=== PATIENT | male | born 1970 | race Caucasian/White ===

== ENCOUNTER 2022-02-10 12:22 | Inpatient (IN) ==
[2022-02-10 12:35] VITALS: BMI 20.9
[2022-02-10] MEDS ORDERED: NS 1,000 ML IV 1,000 ML ONE ×2 (12:37→14:56)
[2022-02-10] MEDS ORDERED: ZOFRAN INJ 4 MG VIAL IVP ONE (12:39)
[2022-02-10] MEDS ORDERED: NS 1,000 ML IV 1,000 ML IV ONE ×2 (12:39→13:55)
[2022-02-10] MEDS ORDERED: DILAUDID INJ IVP ONE ×2 (12:39→14:47)
[2022-02-10] MEDS ORDERED: PROTONIX INJ 40 MG VIAL IVP ONE (12:39)
--- NOTE | 2022-02-10 12:46 | DR.ABDMALE ---
HPI Time seen Time Seen by Provider: 02/10/22 12:39 Complaint Chief Complaint Doctors Comments: 51 y/o male presents for evaluation. Due for cholecystectomy in the near future, started with a gallbladder attack. Having pain of the upper abdomen, fairly constant, sharp, does not radiate. Pain wirse with eating, nothing makes it better. + associated with frequent vomiting, with decreased PO intake. Feeling lightheaded today, thinks he is going to pass out. Still urinating, no fever/chills. No URI symptoms. COVID-19 Coronavirus risk:travel/contact w/high risk person: No Reviewed Nurses Notes Review: Yes PMH PMH Past Medical History Comment: anxiety, depression, bipolar Past Surgical History: Yes Past Surgical History Comment: ortho surgeries Family History History of Family Medical Conditions: No Social History Does patient currently use any type of tobacco product: Yes Type of Tobacco Use: Cigarettes Alcohol Use: Heavy Do you use any recreational Drugs:: No Travel Risk Coronavirus risk:travel/contact w/high risk person: No Infectious screening Isolation: Standard ROS Review of Systems Constitutional: Malaise and Weakness Eyes: No Symptoms Reported ENTM: No Symptoms Reported Respiratoy: No Symptoms Reported Cardiovascular: No Symptoms Reported Gastrointestinal/Abdominal: Abdominal Pain, Nausea and Vomiting Genitourinary: No Symptoms Reported Neurological: Weakness and Dizziness Musculoskeletal: No Symptoms Reported Integumentary: No Symptoms Reported Hematologic/Lymphatic: No Symptoms Reported Psychiatric: No Symptoms Reported All Other Systems: Reviewed and Negative PE Vital Signs Vital Signs: Temp Pulse Resp BP Pulse Ox 02/10/22 15:08 20 02/10/22 14:30 72 12 174/88 98 02/10/22 14:29 76 15 98 02/10/22 14:15 72 14 98 02/10/22 14:00 76 16 144/99 98 02/10/22 13:45 71 13 97 02/10/22 13:31 24 02/10/22 13:30 69 13 161/91 97 02/10/22 13:15 69 10 L 97 02/10/22 13:01 24 02/10/22 13:00 71 15 168/92 100 02/10/22 12:47 76 17 156/85 100 02/10/22 12:45 77 17 100 02/10/22 12:31 80 13 100 02/10/22 12:27 97.0 F L 80 28 H 162/88 100 12/31/21 08:16 90/67 General Limitations: No Limitations General Appearance: Alert, Anxious and In Distress Eyes Eye exam: Normal Appearance and PERRL ENT ENT Exam: Normal Exam and Mucous Membranes Moist Neck Neck Exam: Normal Inspection and Full ROM Chest Chest Inspection: Normal Inspection Respiratory Respiratory Exam: Normal Lung Sounds Bilat; negative Accessory Muscle Use and Respiratory Distress Respiratory Exam: Bilateral: Clear to Auscultation Cardiovascular Cardiovascular Exam: Regular Rate, Normal Rhythm and Normal Heart Sounds; negative Tachycardia Abdominal Exam Abdominal Exam: Normal Inspection, Normal Bowel Sounds, Soft and Tenderness (across RUQ, with guarding) Back Back Exam: Normal Inspection and Full ROM Extremeties Extremities Exam: Normal Inspection and Full ROM Neurologic Neurological Exam: Alert, Oriented X3 and CN II-XII Intact; negative Motor Sensory Deficit Psychiatric Psychiatric Exam: Anxious Skin Skin Exam: Warm and Dry MDM Differential Diagnosis Differential Diagnosis: Cholcystitis, Cholelethiasis, Gastritus/PUD, Gastroenteritis, Pancreatitis and Urolithiasis COURSE Treatment Treatment: 51 y/o male ill over the past 4 days with upper abdominal pain, vomiting. Due to have his GB removed in the near future. + h/o a;cohol usage. Good vital signs. W/u initiated. Given IV fluids, IV zofran/protonix/dilaudid. 1406 - labs show markedly elevated lipase, 9.5K, c/w acute pancreatitis. Also with low sodium/potassium. Liver numbers not elevated. Will repeat GB U/S to r/o acute cholecystitis, but more likely related to alcohol usage. Pt will require admissision. Will consult with surgery, Dr Bhatti, who is planning cholecystectomy next week. GB US was acceptable. Discussed with Dr Flores (covering hospitalist), will admit. Notified Dr Bhatti, will consult. ROR Labs Reviewed Laboratory Results Reviewed?: Yes Result Diagrams: 02/10/22 12:47 02/10/22 12:47 Laboratory: WBC 11.0 X10^3/uL (3.6-10.0) H 02/10/22 12:47 RBC 4.68 X10^6/uL (4.7-6.0) L 02/10/22 12:47 Hgb 17.9 g/dL (13.5-18.0) 02/10/22 12:47 Hct 49.0 % (42.0-54.0) 02/10/22 12:47 MCV 104.6 fL (80.0-100.0) H 02/10/22 12:47 MCH 38.2 pg (27.0-34.0) H 02/10/22 12:47 MCHC 36.5 g/dL (33.0-35.0) H 02/10/22 12:47 RDW 14.6 % (11.6-16.5) 02/10/22 12:47 Plt Count 238 X10^3/uL (150.0-450.0) 02/10/22 12:47 MPV 7.2 fL (7.4-11.0) L 02/10/22 12:47 Neut % (Auto) 70.2 % (42.0-75.0) 02/10/22 12:47 Lymph % (Auto) 17.3 % (21.0-51.0) L 02/10/22 12:47 [place] % (Auto) 11.4 % (0.0-13.0) 02/10/22 12:47 Eos % (Auto) 0.6 % (0.9-2.9) L 02/10/22 12:47 Baso % (Auto) 0.5 % (0.2-1.0) 02/10/22 12:47 Neut # (Auto) 7.7 x10^3/uL (2.2-4.8) H 02/10/22 12:47 Lymph # (Auto) 1.9 X10^3/uL (1.3-2.9) 02/10/22 12:47 [place] # (Auto) 1.3 x10^3/uL (0.3-0.8) H 02/10/22 12:47 Eos # (Auto) 0.1 x10^3/uL (0.0-0.2) 02/10/22 12:47 Baso # (Auto) 0.1 X10^3/uL (0.0-0.1) 02/10/22 12:47 Absolute Nucleated RBC 0.1 /100WBC 02/10/22 12:47 Sodium 123 mmol/L (136-145) L* 02/10/22 12:47 Corrected Sodium 123 mmol/L (136-145) L 02/10/22 12:47 Potassium 2.7 mmol/L (3.5-5.1) L* 02/10/22 12:47 Chloride 83 mmol/L (98-107) L 02/10/22 12:47 Carbon Dioxide 29.0 mmol/L (21-32) 02/10/22 12:47 BUN 14 mg/dL (7-18) 02/10/22 12:47 Creatinine 0.97 mg/dL (0.70-1.30) 02/10/22 12:47 Est GFR (MDRD) Af Amer > 60 (>60) 02/10/22 12:47 Est GFR (MDRD) Non-Af > 60 (>60) 02/10/22 12:47 Glucose 114 mg/dL (65-99) H 02/10/22 12:47 Calcium 8.9 mg/dL (8.5-10.1) 02/10/22 12:47 Corrected Calcium TNP 02/10/22 12:47 Total Bilirubin 1.60 mg/dL (0.2-1.0) H 02/10/22 12:47 AST 50 Units/L (15-37) H 02/10/22 12:47 ALT 41 Units/L (12-78) 02/10/22 12:47 Alkaline Phosphatase 105 Units/L (46-116) 02/10/22 12:47 Total Protein 8.7 g/dL (6.4-8.2) H 02/10/22 12:47 Albumin 3.6 g/dL (3.4-5.0) 02/10/22 12:47 Globulin 5.1 g/dL (2.5-4.5) H 02/10/22 12:47 Albumin/Globulin Ratio 0.7 Ratio (1.1-2.1) L 02/10/22 12:47 Lipase 9554 Units/L (73-393) H 02/10/22 12:47 SARS CoV-2 RNA Rapid REJI Negative (NEGATIVE) 02/10/22 14:20 Other Results Comments: + low sodium/potassium XRAY XRAY Interpreted by: Radiologist X-ray Results: GB US without acute abnormalities EKG Rate: 80 [place]: Normal Rhythm: NSR Block: None ST: Nonsp Opioid Opioid Risk Tool Total: 0 Total Score Risk Category: Low Risk Copyright: Jose Antonio CLAYTON predicting aberrant behaviors Diagnosis Discharge Problem: Acute pancreatitis Qualifiers: Pancreatitis type: alcohol induced Acute pancreatitis complication: no infection or necrosis Qualified Code(s): K85.20 - Alcohol induced acute pancreatitis without necrosis or infection
[2022-02-10] MEDS ORDERED: PROTONIX INJ 40 MG VIAL ONE (12:52)
[2022-02-10] MEDS ORDERED: DILAUDID INJ ONE ×2 (12:52→14:56)
[2022-02-10] MEDS ORDERED: ZOFRAN INJ 4 MG VIAL ONE (12:52)
[2022-02-10 12:54] LABS: BASOPHILS # (AUTO) 0.1 X10^3/uL (0.0-0.1); BASOPHILS % (AUTO) 0.5 % (0.2-1.0); EOSINOPHILS # (AUTO) 0.1 x10^3/uL (0.0-0.2); EOSINOPHILS % (AUTO) 0.6 % (0.9-2.9); HEMOGLOBIN 17.9 g/dL (13.5-18.0); LYMPHOCYTES # (AUTO) 1.9 X10^3/uL (1.3-2.9); LYMPHOCYTES % (AUTO) 17.3 % (21.0-51.0); MEAN CORPUSCULAR HEMOGLOBIN 38.2 pg (27.0-34.0); MEAN CORPUSCULAR HGB CONC 36.5 g/dL (33.0-35.0); MEAN CORPUSCULAR VOLUME 104.6 fL (80.0-100.0); MEAN PLATELET VOLUME 7.2 fL (7.4-11.0); MONOCYTES # (AUTO) 1.3 x10^3/uL (0.3-0.8); MONOCYTES % (AUTO) 11.4 % (0.0-13.0); NEUTROPHILS # (AUTO) 7.7 x10^3/uL (2.2-4.8); NEUTROPHILS % (AUTO) 70.2 % (42.0-75.0); RED BLOOD COUNT 4.68 X10^6/uL (4.7-6.0); RED CELL DISTRIBUTION WIDTH 14.6 % (11.6-16.5)
[2022-02-10 13:07] LABS: ALANINE AMINOTRANSFERASE 41 Units/L (12-78); ALBUMIN 3.6 g/dL (3.4-5.0); ALKALINE PHOSPHATASE 105 Units/L (46-116); ASPARTATE AMINO TRANSFERASE 50 Units/L (15-37); BLOOD UREA NITROGEN 14 mg/dL (7-18); CALCIUM 8.9 mg/dL (8.5-10.1); CHLORIDE 83 mmol/L (98-107); COR NA(FOR HYPERGLY) 123 mmol/L (136-145); CREATININE 0.97 mg/dL (0.70-1.30); TOTAL PROTEIN 8.7 g/dL (6.4-8.2); eGFR NON BLACK RACES > 60 (>60)
[2022-02-10 13:25] LABS: SODIUM 123 mmol/L (136-145)
[2022-02-10 13:26] LABS: LIPASE 9554 Units/L (73-393)
--- NOTE | 2022-02-10 14:25 | US ---
HISTORYVomiting, history of pancreatitisSTUDYRight upper quadrant ultrasoundCOMPARISONUltrasound gallbladder dated 12/29/2021FINDINGSThe right lobe of the liver measures 18.9 centimeters, there is mild increased echogenicity. The gallbladder is mildly distended without significant wall thickening or gallstones. The common bile duct measures 4 millimeters. There is normal color Doppler flow with normal directed flow in the portal vein, hepatic artery and hepatic veins. The right kidney measures in length 11.5 by 4.9 x 5.9 centimeter, there is normal echogenicity without hydronephrosis. The pancreas was not visualized.IMPRESSIONNonvisualization of the pancreas.No evidence of cholelithiasis or cholecystitis, no intra or extrahepatic biliary dilatationHeterogeneous increased echogenicity of the liver unchanged since prior study, consider fatty liver versus medical liver diseaseElectronically signed by: Joan Mosher (Feb 10, 2022 14:24:06)
[2022-02-10] MEDS ORDERED: K-RIDER 10 MEQ/NS 100 ML 10 MEQ/100 ML BAG IV ONE ×2 (14:47→14:57)
[2022-02-10] MEDS: NICOTINE PATCH TD SCH (14:53)
[2022-02-10] MEDS ORDERED: ZOFRAN INJ 4 MG VIAL IVP PRN (17:12)
[2022-02-10] MEDS ORDERED: D5 1/2 NS 1,000 ML 1,000 ML with POTASSIUM CHLORIDE INJ 40 MEQ VIAL 40 MEQ IV SCH ×2 (17:12)
[2022-02-10] MEDS: DILAUDID INJ IVP PRN ×2 (17:44→21:48)
[2022-02-10] MEDS ORDERED: K-DUR TAB 20 MEQ PO PRN (17:47)
[2022-02-10] MEDS ORDERED: POTASSIUM CHL 40 MEQ/NS 0.45% 500 ML IV PRN (17:47)
[2022-02-10] MEDS ORDERED: POTASSIUM CHL 60 MEQ/NS 0.45% 500 ML IV PRN (17:47)
[2022-02-10] MEDS ORDERED: KLOR-CON PO PRN (17:47)
[2022-02-10] MEDS ORDERED: MICRO K EXTEN CAP 10 MEQ PO PRN (17:47)
[2022-02-10] MEDS ORDERED: POTASSIUM CHLORIDE LIQ 20 MEQ UDC PO PRN (17:47)
[2022-02-10] MEDS: D5 1/2 NS 1,000 ML 1,000 ML IV SCH (18:15)
[2022-02-10] MEDS ORDERED: PROVENTIL NEB TX 0.083% 2.5MG/ 3ML NEB SCH (21:00)
[2022-02-10] MEDS ORDERED: ACCUNEB 1.25 MG NEBULE IN SCH (21:00)
[2022-02-10] MEDS ORDERED: PULMICORT NEB TX 0.5 MG NEB SCH (21:00)
[2022-02-10] MEDS ORDERED: PATIENT'S HOME MEDICATION (Fluticasone Propion-Salmeterol 250-50 mcg/dose Blister With Dev IN SCH (21:00)
[2022-02-10] MEDS: MAGNESIUM SULFATE 1 GRAM/100 mL PREMIX 1 G/100 ML BAG IV PRN ×2 (21:46→23:40)
[2022-02-10] MEDS ORDERED: VENTOLIN or PROAIR HFA IN SCH (22:00)
[2022-02-11] MEDS: K-RIDER 10 MEQ/NS 100 ML 10 MEQ/100 ML BAG IV PRN ×4 (00:52→11:09)
[2022-02-11] MEDS: D5 1/2 NS 1,000 ML 1,000 ML IV SCH ×2 (02:10→02:11)
[2022-02-11] MEDS: DILAUDID INJ IVP PRN ×6 (02:10→23:30)
--- NOTE | 2022-02-11 02:59 | RAD ---
HISTORYPT C/O ABD PAIN PSH: ORTHOSTUDYKUBCOMPARISONNoneFIN DINGSEvaluation of the abdomen demonstrates a normal bowel gas pattern. There is a moderate amount of fecal material throughout the colon. No pathological soft tissue mass or calcification can be observed. The bony structures are grossly intact.IMPRESSIONNo evidence for acute abdominal pathology identified.Electronically signed by: Jose Payne (Feb 11, 2022 02:58:02)
[2022-02-11 03:07] LABS: BILIRUBIN,URINE NEGATIVE (NEGATIVE); BLOOD/HEMOGLOBIN,URINE 3+ (NEGATIVE); GLUCOSE, URINE NEGATIVE (NEGATIVE); KETONES,URINE NEGATIVE (NEGATIVE); LEUKOCYTE ESTERASE ,URINE NEGATIVE (NEGATIVE); NITRITES,URINE NEGATIVE (NEGATIVE); PH,URINE 6.5 (5.0 - 8.0); PROTEIN,URINE 1+ (NEGATIVE); UROBILINOGEN,URINE 2+ (NORMAL)
[2022-02-11 03:11] LABS: APPEARANCE,URINE CLEAR (CLEAR); BACTERIA,URINE NEGATIVE /HPF (NEGATIVE); COLOR,URINE AMBER (YELLOW); RBC,URINE 0-2 /HPF (0-3); SQUAMOUS EPITHELIAL CELL,UR RARE /HPF (NEGATIVE)
[2022-02-11 07:06] LABS: BASOPHILS # (AUTO) 0.2 X10^3/uL (0.0-0.1); BASOPHILS % (AUTO) 1.5 % (0.2-1.0); EOSINOPHILS # (AUTO) 0.1 x10^3/uL (0.0-0.2); EOSINOPHILS % (AUTO) 0.7 % (0.9-2.9); HEMATOCRIT 43.6 % (42.0-54.0); HEMOGLOBIN 15.7 g/dL (13.5-18.0); LYMPHOCYTES # (AUTO) 1.3 X10^3/uL (1.3-2.9); LYMPHOCYTES % (AUTO) 12.1 % (21.0-51.0); MEAN CORPUSCULAR HEMOGLOBIN 38.6 pg (27.0-34.0); MEAN CORPUSCULAR HGB CONC 36.1 g/dL (33.0-35.0); MEAN CORPUSCULAR VOLUME 106.9 fL (80.0-100.0); MEAN PLATELET VOLUME 7.5 fL (7.4-11.0); MONOCYTES # (AUTO) 1.1 x10^3/uL (0.3-0.8); MONOCYTES % (AUTO) 10.4 % (0.0-13.0); NEUTROPHILS # (AUTO) 7.9 x10^3/uL (2.2-4.8); NEUTROPHILS % (AUTO) 75.3 % (42.0-75.0); RED BLOOD COUNT 4.08 X10^6/uL (4.7-6.0); RED CELL DISTRIBUTION WIDTH 14.2 % (11.6-16.5); WHITE BLOOD COUNT 10.4 X10^3/uL (3.6-10.0)
[2022-02-11 07:08] LABS: ALANINE AMINOTRANSFERASE 40 Units/L (12-78); ALBUMIN 2.9 g/dL (3.4-5.0); ALKALINE PHOSPHATASE 84 Units/L (46-116); ASPARTATE AMINO TRANSFERASE 45 Units/L (15-37); BLOOD UREA NITROGEN 10 mg/dL (7-18); CARBON DIOXIDE 32.8 mmol/L (21-32); CHLORIDE 87 mmol/L (98-107); COR CA(FOR HYPOALB) 8.9 mg/dL (8.5-10.1); CREATININE 0.85 mg/dL (0.70-1.30); TOTAL PROTEIN 7.1 g/dL (6.4-8.2); eGFR NON BLACK RACES > 60 (>60)
[2022-02-11 07:33] LABS: COR NA(FOR HYPERGLY) 126 mmol/L (136-145); LIPASE 4747 Units/L (73-393); PLATELET MORPHOLOGY COMMENT NORMAL (NORMAL); SODIUM 125 mmol/L (136-145)
[2022-02-11] MEDS ORDERED: NICOTINE PATCH TD SCH (09:00)
[2022-02-11] MEDS ORDERED: NS 1,000 ML IV 1,000 ML IV SCH (09:00)
[2022-02-11] MEDS ORDERED: ATENOLOL CHLORTHALIDONE PO SCH (09:00)
--- NOTE | 2022-02-11 09:04 | DR.H&P ---
H&P History & Physical for Day of: H&P Date: 02/11/22 Chief Complaint Chief Complaint: abdominal pain, nausea/vomiting Allergies Allergies Allergy/AdvReac Type Severity Reaction Status Date / Time No Known Drug Allergies Allergy Verified 05/09/20 10:10 History of Present Illness History of Present Illness: Mr Block is a 51y/o male with a PMH of HTN, recurrent pancreatitis, ETOH and tobacco use presented with worsening abdominal pain, nausea and vomiting. He states his Sx started Wednesday and have been worsening. He reports poor oral intake since then. He has been having work up for abdominal pain for a while now. He has been seeing Dr Grady, had EGD recently for similar Sx. He also had outpatient gallbladder U/S and HIDA, he is scheduled to have cholecystectomy on Wednesday due to low EF on HIDA. In the ER, he was noted to have low potassium, sodium and magnesium. His lipase was significantly elevated. U/S GB showed no stones or signs of acute cholecystitis. He was started on pain control, hydration and potassium replacement. Dr Grady was also consulted. Patient reports drinking excessive alcohol for years, smokes 1PPD. Labs/imaging reviewed Plan: continue NPO, pain control and hydration. Will changed to NS with KCl. Monitor electrolytes, replace as needed. Follow surgery recommendations. Monitor AM labs/imaging. Past Medical History Past Medical History: Anxiety, COPD, Depression and Hypertension Past Surgical History Surgical History: Ortho Surgery Social History Does patient currently use any type of tobacco product: Yes Have you used tobacco products in the last 12 months: Yes Type of Tobacco Use: Cigarettes Does any household member use tobacco: No Alcohol Use: None and Occasionally Prescription drug monitoring program results: PDMP reviewed and no concerns identified Medications Home Medications: No Known Drug Allergies Allergy (Verified 05/09/20 10:10) CONTINUE taking the following medications albuterol sulfate [ProAir HFA] 2 puff INHALATION TID 02/10/22 [History] atenolol-chlorthalidone 1 tab PO DAILY 02/10/22 [History] citalopram 20 mg PO DAILY 02/10/22 [History] diclofenac sodium 75 mg PO BID 02/10/22 [History] fluticasone propion-salmeterol [Advair Diskus] 1 inh INHALATION BID 02/10/22 [History] hydrocodone-acetaminophen 1 tab PO TID 02/10/22 [History] pantoprazole [Protonix] 40 mg PO BID 02/10/22 [History] Labs Result Diagrams: 02/11/22 05:28 02/11/22 05:28 Labs: Laboratory WBC 10.4 X10^3/uL (3.6-10.0) H 02/11/22 05:28 RBC 4.08 X10^6/uL (4.7-6.0) L 02/11/22 05:28 Hgb 15.7 g/dL (13.5-18.0) D 02/11/22 05:28 Hct 43.6 % (42.0-54.0) 02/11/22 05:28 MCV 106.9 fL (80.0-100.0) H 02/11/22 05:28 MCH 38.6 pg (27.0-34.0) H 02/11/22 05:28 MCHC 36.1 g/dL (33.0-35.0) H 02/11/22 05:28 RDW 14.2 % (11.6-16.5) 02/11/22 05:28 Plt Count 201 X10^3/uL (150.0-450.0) 02/11/22 05:28 Plt Count Comment Adequate (ADEQUATE) 02/11/22 05:28 MPV 7.5 fL (7.4-11.0) 02/11/22 05:28 Neut % (Auto) 75.3 % (42.0-75.0) H 02/11/22 05:28 Lymph % (Auto) 12.1 % (21.0-51.0) L 02/11/22 05:28 [place] % (Auto) 10.4 % (0.0-13.0) 02/11/22 05:28 Eos % (Auto) 0.7 % (0.9-2.9) L 02/11/22 05:28 Baso % (Auto) 1.5 % (0.2-1.0) H 02/11/22 05:28 Neut # (Auto) 7.9 x10^3/uL (2.2-4.8) H 02/11/22 05:28 Lymph # (Auto) 1.3 X10^3/uL (1.3-2.9) 02/11/22 05:28 [place] # (Auto) 1.1 x10^3/uL (0.3-0.8) H 02/11/22 05:28 Eos # (Auto) 0.1 x10^3/uL (0.0-0.2) 02/11/22 05:28 Baso # (Auto) 0.2 X10^3/uL (0.0-0.1) H 02/11/22 05:28 Absolute Nucleated RBC 0.1 /100WBC 02/11/22 05:28 Plt Morphology Comment Normal (NORMAL) 02/11/22 05:28 RBC Morphology Abnormal (NORMAL) 02/11/22 05:28 Macrocytosis 1+ A 02/11/22 05:28 Sodium 125 mmol/L (136-145) L* 02/11/22 05:28 Corrected Sodium 126 mmol/L (136-145) L 02/11/22 05:28 Potassium 3.3 mmol/L (3.5-5.1) L 02/11/22 05:28 Chloride 87 mmol/L (98-107) L 02/11/22 05:28 Carbon Dioxide 32.8 mmol/L (21-32) H 02/11/22 05:28 BUN 10 mg/dL (7-18) 02/11/22 05:28 Creatinine 0.85 mg/dL (0.70-1.30) 02/11/22 05:28 Est GFR (MDRD) Af Amer > 60 (>60) 02/11/22 05:28 Est GFR (MDRD) Non-Af > 60 (>60) 02/11/22 05:28 Glucose 139 mg/dL (65-99) H 02/11/22 05:28 POC Glucose (mg/dL) 119 mg/dL (65-99) H 02/10/22 17:43 Hemoglobin A1c 5.1 % 02/11/22 05:28 Calcium 8.0 mg/dL (8.5-10.1) L 02/11/22 05:28 Corrected Calcium 8.9 mg/dL (8.5-10.1) 02/11/22 05:28 Magnesium 2.5 mg/dL (1.7-2.9) 02/11/22 05:28 Total Bilirubin 1.20 mg/dL (0.2-1.0) H 02/11/22 05:28 AST 45 Units/L (15-37) H 02/11/22 05:28 ALT 40 Units/L (12-78) 02/11/22 05:28 Alkaline Phosphatase 84 Units/L (46-116) 02/11/22 05:28 Total Protein 7.1 g/dL (6.4-8.2) 02/11/22 05:28 Albumin 2.9 g/dL (3.4-5.0) L 02/11/22 05:28 Globulin 4.2 g/dL (2.5-4.5) 02/11/22 05:28 Albumin/Globulin Ratio 0.7 Ratio (1.1-2.1) L 02/11/22 05:28 Lipase 4747 Units/L (73-393) H 02/11/22 05:28 Specimen Type Clean catch urine 02/10/22 02:28 Urine Color [place] (YELLOW) 02/10/22 02:28 Urine Appearance Clear (CLEAR) 02/10/22 02:28 Urine pH 6.5 (5.0 - 8.0) 02/10/22 02:28 Ur Specific [place] 1.015 (1.000-1.030) 02/10/22 02:28 Urine Protein 1+ (NEGATIVE) 02/10/22 02:28 Urine Glucose (UA) Negative (NEGATIVE) 02/10/22 02:28 Urine Ketones Negative (NEGATIVE) 02/10/22 02:28 Urine Occult Blood 3+ (NEGATIVE) 02/10/22 02:28 Urine Nitrite Negative (NEGATIVE) 02/10/22 02:28 Urine Bilirubin Negative (NEGATIVE) 02/10/22 02:28 Urine Urobilinogen 2+ (NORMAL) 02/10/22 02:28 Ur Leukocyte Esterase Negative (NEGATIVE) 02/10/22 02:28 Urine RBC 0-2 /HPF (0-3) 02/10/22 02:28 Urine WBC None seen /HPF (0-5) 02/10/22 02:28 Ur Squamous Epith Cells Rare /HPF (NEGATIVE) 02/10/22 02:28 Urine Bacteria Negative /HPF (NEGATIVE) 02/10/22 02:28 Ur Culture Indicated? No/not indicated 02/10/22 02:28 SARS CoV-2 RNA Rapid REJI Negative (NEGATIVE) 02/10/22 14:20 Review of Systems Constitutional: No Symptoms Reported Eyes: No Symptoms Reported ENT: No Symptoms Reported Respiratory: No Symptoms Reported Cardiovascular: No Symptoms Reported Gastrointestinal: Nausea, Vomiting, Abdominal Pain and Diarrhea Genitourinary: No Symptoms Reported Musculoskeletal: No Symptoms Reported Skin: No Symptoms Reported Neurological: No Symptoms Reported Physical Exam Vital Signs: Temperature 98.0 F Pulse Rate [Bilateral Radial] 75 Pulse Rate 72 Respiratory Rate 20 Blood Pressure [Left Arm] 158/83 Blood Pressure 156/88 O2 Sat by Pulse Oximetry 96 Oriented: Normal Eyes: Normal Ear: Normal Nose: Normal Throat: Dry Respiratory: Clear Throughout Cardiovascular: Normal Tenderness: RUQ, RLQ, Epigastric and Mild Skin: Normal Musculoskeletal: Normal Psychiatric: Normal Mood Description: Calm Affect: Normal Speech Pattern: Clear and Appropriate Assessment/Plan (1) Acute pancreatitis: Qualifiers: Acute pancreatitis complication: no infection or necrosis Pancreatitis type: alcohol induced Qualified Code(s): K85.20 - Alcohol induced acute pancreatitis without necrosis or infection Status: Acute (2) Hyponatremia: Status: Acute (3) Hypokalemia: Status: Acute (4) Hypomagnesemia: Status: Acute (5) Dehydration: Status: Acute (6) Abdominal pain: Qualifiers: Abdominal location: generalized Qualified Code(s): R10.84 - Generalized abdominal pain Status: Acute (7) HTN (hypertension): Qualifiers: Hypertension type: primary hypertension Qualified Code(s): I10 - Essential (primary) hypertension Status: Acute (8) Alcohol abuse: Status: Acute (9) Tobacco use: Status: Acute Review H&P Reviewed: Yes Patient was examined?: Yes
[2022-02-11] MEDS: NICOTINE PATCH TD SCH (09:27)
[2022-02-11] MEDS: CHLORTHALIDONE PO SCH (09:45)
[2022-02-11] MEDS: TENORMIN PO SCH (09:46)
[2022-02-11] MEDS: NS + KCL 20 MEQ/L 1,000 ML IV SCH ×2 (09:46→17:19)
[2022-02-12] MEDS: NS + KCL 20 MEQ/L 1,000 ML IV SCH ×2 (01:30→09:42)
[2022-02-12] MEDS: DILAUDID INJ IVP PRN ×2 (03:38→08:06)
[2022-02-12 06:40] LABS: BASOPHILS % (AUTO) 0.2 % (0.2-1.0); EOSINOPHILS # (AUTO) 0.2 x10^3/uL (0.0-0.2); EOSINOPHILS % (AUTO) 2.4 % (0.9-2.9); HEMATOCRIT 42.9 % (42.0-54.0); HEMOGLOBIN 15.2 g/dL (13.5-18.0); LYMPHOCYTES % (AUTO) 22.2 % (21.0-51.0); MEAN CORPUSCULAR HEMOGLOBIN 38.3 pg (27.0-34.0); MEAN CORPUSCULAR HGB CONC 35.3 g/dL (33.0-35.0); MEAN CORPUSCULAR VOLUME 108.4 fL (80.0-100.0); MEAN PLATELET VOLUME 7.6 fL (7.4-11.0); MONOCYTES # (AUTO) 1.1 x10^3/uL (0.3-0.8); MONOCYTES % (AUTO) 11.5 % (0.0-13.0); NEUTROPHILS # (AUTO) 5.9 x10^3/uL (2.2-4.8); NEUTROPHILS % (AUTO) 63.7 % (42.0-75.0); RED BLOOD COUNT 3.96 X10^6/uL (4.7-6.0); RED CELL DISTRIBUTION WIDTH 14.5 % (11.6-16.5); WHITE BLOOD COUNT 9.2 X10^3/uL (3.6-10.0)
[2022-02-12 07:16] LABS: ALANINE AMINOTRANSFERASE 55 Units/L (12-78); ALKALINE PHOSPHATASE 98 Units/L (46-116); ASPARTATE AMINO TRANSFERASE 57 Units/L (15-37); BLOOD UREA NITROGEN 10 mg/dL (7-18); CALCIUM 8.3 mg/dL (8.5-10.1); CARBON DIOXIDE 28.1 mmol/L (21-32); CHLORIDE 93 mmol/L (98-107); COR CA(FOR HYPOALB) 9.1 mg/dL (8.5-10.1); MAGNESIUM 2.1 mg/dL (1.7-2.9); SODIUM 130 mmol/L (136-145); TOTAL PROTEIN 7.3 g/dL (6.4-8.2); eGFR NON BLACK RACES > 60 (>60)
[2022-02-12 07:50] LABS: PLATELET MORPHOLOGY COMMENT NORMAL (NORMAL)
[2022-02-12] MEDS ORDERED: NS 100 ML IV 100 ML ONE (08:08)
[2022-02-12] MEDS: TENORMIN PO SCH (09:41)
[2022-02-12] MEDS: NICOTINE PATCH TD SCH (09:41)
[2022-02-12] MEDS: CHLORTHALIDONE PO SCH (09:42)
--- NOTE | 2022-02-12 09:44 | W.DIS.FURT ---
Summary of Discharge Discharge Summary of Date Date of Exam: 02/12/22 Admission Date Date of Admission: 02/10/22 Admission Diagnosis Patient Problems (Updated 02/12/22 @ 15:35 by Loly Flores) Acute pancreatitis (Acute) K85.90 Hospital Course: Mr Block is a 51y/o male with a PMH of HTN, recurrent pancreatitis, ETOH and tobacco use presented with worsening abdominal pain, nausea and vomiting. He states his Sx started Wednesday and have been worsening. He reports poor oral intake since then. He has been having work up for abdominal pain for a while now. He has been seeing Dr Grady, had EGD recently for similar Sx. He also had outpatient gallbladder U/S and HIDA, he is scheduled to have cholecystectomy on Wednesday due to low EF on HIDA. In the ER, he was noted to have low potassium, sodium and magnesium. His lipase was significantly elevated. U/S GB showed no stones or signs of acute cholecystitis. He was started on pain control, hydration and potassium replacement. Dr Grady was also consulted. Patient reports drinking excessive alcohol for years, smokes 1PPD. He was admitted for further treatment. He was kept NPO, started on IV fluids and pain control. His potassium and magnesium were replaced as needed. His symptoms improved and he was ambulating in the room. His diet was advanced as tolerated. His labs improved. Dr Grady discussed postponing gallbladder surgery for the next few weeks until pat ient improved from this episode. He was stable for discharge. He will f/u with PCP and Dr Grady. Discussed alcohol cessation. Vital Signs: Vital Signs (72 hours) 02/10/22 12:27 02/10/22 12:31 02/10/22 12:45 Temperature 97.0 F L Pulse Rate 80 80 77 Pulse Rate [Bilateral Radial] Respiratory Rate 28 H 13 17 Blood Pressure 162/88 Blood Pressure [Left Arm] O2 Sat by Pulse Oximetry 100 100 100 02/10/22 12:47 02/10/22 13:00 02/10/22 13:01 Temperature Pulse Rate 76 71 Pulse Rate [Bilateral Radial] Respiratory Rate 17 15 24 Blood Pressure 156/85 168/92 Blood Pressure [Left Arm] O2 Sat by Pulse Oximetry 100 100 02/10/22 13:15 02/10/22 13:30 02/10/22 13:31 Temperature Pulse Rate 69 69 Pulse Rate [Bilateral Radial] Respiratory Rate 10 L 13 24 Blood Pressure 161/91 Blood Pressure [Left Arm] O2 Sat by Pulse Oximetry 97 97 02/10/22 13:45 02/10/22 14:00 02/10/22 14:15 Temperature Pulse Rate 71 76 72 Pulse Rate [Bilateral Radial] Respiratory Rate 13 16 14 Blood Pressure 144/99 Blood Pressure [Left Arm] O2 Sat by Pulse Oximetry 97 98 98 02/10/22 14:29 02/10/22 14:30 02/10/22 14:45 Temperature Pulse Rate 76 72 70 Pulse Rate [Bilateral Radial] Respiratory Rate 15 12 11 L Blood Pressure 174/88 Blood Pressure [Left Arm] O2 Sat by Pulse Oximetry 98 98 98 02/10/22 15:00 02/10/22 15:08 02/10/22 15:15 Temperature Pulse Rate 73 69 Pulse Rate [Bilateral Radial] Respiratory Rate 14 20 13 Blood Pressure 154/88 Blood Pressure [Left Arm] O2 Sat by Pulse Oximetry 98 97 02/10/22 15:30 02/10/22 16:20 02/10/22 17:44 Temperature 97.3 F L Pulse Rate 72 Pulse Rate [Bilateral Radial] 71 Respiratory Rate 11 L 22 20 Blood Pressure 156/88 Blood Pressure [Left Arm] 182/90 O2 Sat by Pulse Oximetry 97 98 02/10/22 18:14 02/10/22 20:00 02/10/22 21:48 Temperature 98.4 F Pulse Rate Pulse Rate [Bilateral Radial] 68 Respiratory Rate 20 20 20 Blood Pressure Blood Pressure [Left Arm] 135/83 O2 Sat by Pulse Oximetry 98 02/10/22 22:18 02/11/22 00:00 02/11/22 02:10 Temperature 97.9 F Pulse Rate Pulse Rate [Bilateral Radial] 70 Respiratory Rate 20 18 20 Blood Pressure Blood Pressure [Left Arm] 165/87 O2 Sat by Pulse Oximetry 99 02/11/22 02:40 02/11/22 04:00 02/11/22 06:11 Temperature 98.0 F Pulse Rate Pulse Rate [Bilateral Radial] 75 Respiratory Rate 20 20 20 Blood Pressure Blood Pressure [Left Arm] 158/83 O2 Sat by Pulse Oximetry 96 02/11/22 06:41 02/11/22 08:00 02/11/22 10:52 Temperature 98.1 F Pulse Rate Pulse Rate [Bilateral Radial] 70 Respiratory Rate 20 20 20 Blood Pressure Blood Pressure [Left Arm] 120/79 O2 Sat by Pulse Oximetry 97 02/11/22 11:22 02/11/22 11:56 02/11/22 15:08 Temperature 98.2 F Pulse Rate Pulse Rate [Bilateral Radial] 73 Respiratory Rate 20 20 20 Blood Pressure Blood Pressure [Left Arm] 125/74 O2 Sat by Pulse Oximetry 96 02/11/22 15:38 02/11/22 16:00 02/11/22 19:25 Temperature 98.2 F Pulse Rate Pulse Rate [Bilateral Radial] 76 Respiratory Rate 20 20 20 Blood Pressure Blood Pressure [Left Arm] 114/73 O2 Sat by Pulse Oximetry 93 L 02/11/22 19:55 02/11/22 20:00 02/11/22 23:30 Temperature 98.6 F Pulse Rate Pulse Rate [Bilateral Radial] 83 Respiratory Rate 21 20 20 Blood Pressure Blood Pressure [Left Arm] 134/82 O2 Sat by Pulse Oximetry 98 02/12/22 00:00 02/12/22 03:38 02/12/22 03:59 Temperature 98.6 F 97.9 F Pulse Rate Pulse Rate [Bilateral Radial] 78 75 Respiratory Rate 20 20 20 Blood Pressure Blood Pressure [Left Arm] 112/73 100/66 O2 Sat by Pulse Oximetry 96 99 02/12/22 04:08 02/12/22 08:06 02/12/22 08:36 Temperature Pulse Rate Pulse Rate [Bilateral Radial] Respiratory Rate 21 21 21 Blood Pressure Blood Pressure [Left Arm] O2 Sat by Pulse Oximetry Labs: Laboratory Last Values WBC 9.2 X10^3/uL (3.6-10.0) 02/12/22 05:25 RBC 3.96 X10^6/uL (4.7-6.0) L 02/12/22 05:25 Hgb 15.2 g/dL (13.5-18.0) 02/12/22 05:25 Hct 42.9 % (42.0-54.0) 02/12/22 05:25 MCV 108.4 fL (80.0-100.0) H 02/12/22 05:25 MCH 38.3 pg (27.0-34.0) H 02/12/22 05:25 MCHC 35.3 g/dL (33.0-35.0) H 02/12/22 05:25 RDW 14.5 % (11.6-16.5) 02/12/22 05:25 Plt Count 201 X10^3/uL (150.0-450.0) 02/12/22 05:25 Plt Count Comment Adequate (ADEQUATE) 02/12/22 05:25 MPV 7.6 fL (7.4-11.0) 02/12/22 05:25 Neut % (Auto) 63.7 % (42.0-75.0) 02/12/22 05:25 Lymph % (Auto) 22.2 % (21.0-51.0) 02/12/22 05:25 [place] % (Auto) 11.5 % (0.0-13.0) 02/12/22 05:25 Eos % (Auto) 2.4 % (0.9-2.9) 02/12/22 05:25 Baso % (Auto) 0.2 % (0.2-1.0) 02/12/22 05:25 Neut # (Auto) 5.9 x10^3/uL (2.2-4.8) H 02/12/22 05:25 Lymph # (Auto) 2.0 X10^3/uL (1.3-2.9) 02/12/22 05:25 [place] # (Auto) 1.1 x10^3/uL (0.3-0.8) H 02/12/22 05:25 Eos # (Auto) 0.2 x10^3/uL (0.0-0.2) 02/12/22 05:25 Baso # (Auto) 0.0 X10^3/uL (0.0-0.1) 02/12/22 05:25 Absolute Nucleated RBC 0.1 /100WBC 02/12/22 05:25 Plt Morphology Comment Normal (NORMAL) 02/12/22 05:25 RBC Morphology Abnormal (NORMAL) 02/12/22 05:25 Macrocytosis 1+ A 02/12/22 05:25 Sodium 130 mmol/L (136-145) L 02/12/22 05:25 Corrected Sodium TNP 02/12/22 05:25 Potassium 3.4 mmol/L (3.5-5.1) L 02/12/22 05:25 Chloride 93 mmol/L (98-107) L 02/12/22 05:25 Carbon Dioxide 28.1 mmol/L (21-32) 02/12/22 05:25 BUN 10 mg/dL (7-18) 02/12/22 05:25 Creatinine 0.80 mg/dL (0.70-1.30) 02/12/22 05:25 Est GFR (MDRD) Af Amer > 60 (>60) 02/12/22 05:25 Est GFR (MDRD) Non-Af > 60 (>60) 02/12/22 05:25 Glucose 88 mg/dL (65-99) 02/12/22 05:25 POC Glucose (mg/dL) 119 mg/dL (65-99) H 02/10/22 17:43 Hemoglobin A1c 5.1 % 02/11/22 05:28 Calcium 8.3 mg/dL (8.5-10.1) L 02/12/22 05:25 Corrected Calcium 9.1 mg/dL (8.5-10.1) 02/12/22 05:25 Magnesium 2.1 mg/dL (1.7-2.9) 02/12/22 05:25 Total Bilirubin 1.10 mg/dL (0.2-1.0) H 02/12/22 05:25 AST 57 Units/L (15-37) H 02/12/22 05:25 ALT 55 Units/L (12-78) 02/12/22 05:25 Alkaline Phosphatase 98 Units/L (46-116) 02/12/22 05:25 Total Protein 7.3 g/dL (6.4-8.2) 02/12/22 05:25 Albumin 3.0 g/dL (3.4-5.0) L 02/12/22 05:25 Globulin 4.3 g/dL (2.5-4.5) 02/12/22 05:25 Albumin/Globulin Ratio 0.7 Ratio (1.1-2.1) L 02/12/22 05:25 Lipase 4747 Units/L (73-393) H 02/11/22 05:28 Specimen Type Clean catch urine 02/10/22 02:28 Urine Color [place] (YELLOW) 02/10/22 02:28 Urine Appearance Clear (CLEAR) 02/10/22 02:28 Urine pH 6.5 (5.0 - 8.0) 02/10/22 02:28 Ur Specific [place] 1.015 (1.000-1.030) 02/10/22 02:28 Urine Protein 1+ (NEGATIVE) 02/10/22 02:28 Urine Glucose (UA) Negative (NEGATIVE) 02/10/22 02:28 Urine Ketones Negative (NEGATIVE) 02/10/22 02:28 Urine Occult Blood 3+ (NEGATIVE) 02/10/22 02:28 Urine Nitrite Negative (NEGATIVE) 02/10/22 02:28 Urine Bilirubin Negative (NEGATIVE) 02/10/22 02:28 Urine Urobilinogen 2+ (NORMAL) 02/10/22 02:28 Ur Leukocyte Esterase Negative (NEGATIVE) 02/10/22 02:28 Urine RBC 0-2 /HPF (0-3) 02/10/22 02:28 Urine WBC None seen /HPF (0-5) 02/10/22 02:28 Ur Squamous Epith Cells Rare /HPF (NEGATIVE) 02/10/22 02:28 Urine Bacteria Negative /HPF (NEGATIVE) 02/10/22 02:28 Ur Culture Indicated? No/not indicated 02/10/22 02:28 SARS CoV-2 RNA Rapid REJI Negative (NEGATIVE) 02/10/22 14:20 Reason For Visit: HYPONATREMIA, PANCREATITIS, HYPOKALEMIA, ABD PAIN Discharge Date Discharge Date: 02/12/22 Discharge Diagnosis All Active Problems (Updated 02/12/22 @ 15:35 by Loly Flores) Tobacco use (Chronic) Alcohol abuse (Chronic) HTN (hypertension) (Chronic) Abdominal pain (Acute) Dehydration (Acute) Hypomagnesemia (Acute) Hypokalemia (Acute) Hyponatremia (Acute) Acute pancreatitis (Acute) Plan of Treatment: Continue with present treatment and follow up plan. Pt is to keep follow up appointment as instructed and take medications as ordered. Discharge Medications Discharge Medications: No Known Drug Allergies Allergy (Verified 05/09/20 10:10) CONTINUE taking the following medications albuterol sulfate [ProAir HFA] 2 puff INHALATION TID 02/10/22 [History] atenolol-chlorthalidone 1 tab PO DAILY 02/10/22 [History] citalopram 20 mg PO DAILY 02/10/22 [History] fluticasone propion-salmeterol [Advair Diskus] 1 inh INHALATION BID 02/10/22 [History] hydrocodone-acetaminophen 1 tab PO TID 02/10/22 [History] pantoprazole [Protonix] 40 mg PO BID 02/10/22 [History] New Prescriptions hydrocodone-acetaminophen 1 tab PO Q6HR 5 Days #20 tab MDD 4 tabs 02/12/22 [Rx] ondansetron HCl 4 mg PO Q8H PRN #14 tab 02/12/22 [Rx] potassium chloride 10 meq PO BID 3 Days #6 cap 02/12/22 [Rx] Follow up and Referral Follow Up: 1 Week (PCP) 1 Week (Surgery ) Discharge Disposition Discharge Disposition: Home Discharge Condition: Stable Discharge Plan Discharge Plan Hospital Course: Mr Block is a 51y/o male with a PMH of HTN, recurrent pancreatitis, ETOH and tobacco use presented with worsening abdominal pain, nausea and vomiting. He states his Sx started Wednesday and have been worsening. He reports poor oral intake since then. He has been having work up for abdominal pain for a while now. He has been seeing Dr Grady, had EGD recently for similar Sx. He also had outpatient gallbladder U/S and HIDA, he is scheduled to have cholecystectomy on Wednesday due to low EF on HIDA. In the ER, he was noted to have low potassium, sodium and magnesium. His lipase was significantly elevated. U/S GB showed no stones or signs of acute cholecystitis. He was started on pain control, hydration and potassium replacement. Dr Grady was also consulted. Patient reports drinking excessive alcohol for years, smokes 1PPD. He was admitted for further treatment. He was kept NPO, started on IV fluids and pain control. His potassium and magnesium were replaced as needed. His symptoms improved and he was ambulating in the room. His diet was advanced as tolerated. His labs improved. Dr Grady discussed postponing gallbladder surgery for the next few weeks until patient improved from this episode. He was stable for discharge. He will f/u with PCP and Dr Grady. Discussed alcohol cessation. Patient Disposition: 01 HOME, SELF-CARE Condition: Stable Health Concerns: Post Hospitalization: new medications and changes needed to prevent readmission or further decline. Pt educated and given instructions on all concerns. Care Plan Goals: Problem: Pain/Alteration in Comfort Goal: Improve/ Resolve Pain; Achieve Pain Tolerance Instructions: Take pain medications as prescribed. Contact your primary care provider if your pain is unrelieved or worsens. Follow up with primary care provider as directed. Plan of Treatment: Continue with present treatment and follow up plan. Pt is to keep follow up appointment as instructed and take medications as ordered. Prescription drug monitoring program results: PDMP reviewed and no concerns identified Prescriptions: New hydrocodone-acetaminophen 10-325 mg tablet 1 tab PO Q6HR MDD 4 tabs 5 Days Qty: 20 RF: 0 ondansetron HCl 4 mg tablet 4 mg PO Q8H PRN (Reason: nausea and vomiting) Qty: 14 RF: 0 potassium chloride 10 mEq capsule, extended release 10 meq PO BID 3 Days Qty: 6 RF: 0 Continued fluticasone propion-salmeterol [Advair Diskus] 250-50 mcg/dose Blister With Device 1 inh INHALATION BID RF: 0 atenolol-chlorthalidone 50-25 mg Tablet 1 tab PO DAILY RF: 0 citalopram 20 mg Tablet 20 mg PO DAILY RF: 0 hydrocodone-acetaminophen 7.5-325 mg Tablet 1 tab PO TID RF: 0 pantoprazole [Protonix] 40 mg Tablet,Delayed Release (Dr/Ec) 40 mg PO BID RF: 0 albuterol sulfate [ProAir HFA] 90 mcg/actuation Hfa Aerosol Inhaler 2 puff INHALATION TID RF: 0 Discontinued diclofenac sodium 75 mg Tablet,Delayed Release (Dr/Ec) 75 mg PO BID RF: 0 Follow ups/Referrals Follow ups/Referrals: ANUJ ALY [STAFF PHYSICIAN] - 02/24/22 2:45 pm (hospital f/u ) Instructions Instructions: Laparoscopic Cholecystectomy, Hypomagnesemia, Hypokalemia, Alcohol Abuse and Nutrition, Steps to Quit Smoking, Ewop-jq-Juam, Acute Pancreatitis, Nors-dd-Snyl, Pancreatitis Eating Plan, Dehydration, Adult Stand Alone Forms: Precautions for COVID19, [facility], Patient Portal, S ocial Distancing
[2022-02-12 09:51] VITALS: BP 137/64
== END 2022-02-12 10:00 | disposition home or self-care (01) | DRG 439 ==
LOC: ER 12:22 → MED/SURG 15:23
PROVIDERS: ADMIT Internal Medicine; ATTEND Internal Medicine

== ENCOUNTER 2023-09-07 13:14 | Inpatient (IN) ==
[2023-09-07 13:26] VITALS: BMI 16.9
[2023-09-07] MEDS ORDERED: NS 1,000 ML IV 1,000 ML IV ONE (13:42)
[2023-09-07] MEDS ORDERED: NS 1,000 ML IV 1,000 ML ONE (13:52)
--- NOTE | 2023-09-07 13:52 | DR.GENAD ---
HPI Time Seen Time Seen by Provider: 09/07/23 13:42 PCP Primary Care Physician: Candy Complaint/Symptoms Chief Complaint Doctors Comments: 53 y/o male sent in by his MD for evaluation. Has a history of chronic cryptitis in the past. Over the past few weeks he has been having increasing difficulty in eating. Having pain when he eats, located in the epigastric and right upper quadrant region. Frequently gets nauseous and vomits. Pain is worse with laying down as well as eating. Nothing makes it better. Patient does not drink alcohol anymore. Seen here in April for his last episode of severe pancreatitis. Patient had CTs and labs done as an outpatient yesterday thru his primary care physician. CT the abdomen pelvis shows improvement of the pancreas compared to last time, he does now have increased inflammation of his duodenal region. Liver enzymes better than last time. Lipase 888, but was 2,000 last time. Chief Complaint:: Doctor called and blood work was very low and his pancrease enzymes were very high, he had some imaging studies done here yesterday COVID-19 Coronavirus risk:travel/contact w/high risk person: No Has patient experienced Coronavirus symptoms: No Nurses notes reviewed Nurses Notes Review: Yes Source History Provided: Patient Mode of Arrival Mode of Arrival: Ambulatory Timing Onset of Chief Complaint: 09/03/23 PMH PMH Past Medical History: Yes Past Medical History: Hypertension Past Medical History Comment: pancreatitis, chronic pain Past Surgical History: Yes Surgical History: Cholecystectomy Family History History of Family Medical Conditions: Yes Family Medical History: Hypertension Social History Does patient currently use any type of tobacco product: Yes Have you used tobacco products in the last 12 months: Yes Type of Tobacco Use: Cigarettes Does any household member use tobacco: No Alcohol Use: None Do you use any recreational Drugs:: Yes Lives With: Friend Lives Where: Home Travel Risk Coronavirus risk:travel/contact w/high risk person: No Has patient experienced Coronavirus symptoms: No Infectious screening In the last 2 months have you had wt loss of >10#?: YES Have you had fever, night sweats or hemotysis?: No Have you traveled outside the country in the last 6 months?: No Isolation: Standard ROS Review of Systems Constitutional: Weakness and Other (Weight loss) Eyes: No Symptoms Reported ENTM: No Symptoms Reported Respiratoy: No Symptoms Reported Cardiovascular: No Symptoms Reported Gastrointestinal/Abdominal: See HPI Genitourinary: No Symptoms Reported Neurological: Weakness Musculoskeletal: No Symptoms Reported Integumentary: No Symptoms Reported All Other Systems: Reviewed and Negative PE Vital Signs Vitals: Vital Signs Temperature 98.1 F Temperature 98.1 F Temperature 98.8 F Pulse Rate 72 Pulse Rate 77 Pulse Rate 78 Pulse Rate 82 Pulse Rate 85 Pulse Rate 82 Respiratory Rate 16 Respiratory Rate 16 Respiratory Rate 14 Respiratory Rate 14 Respiratory Rate 14 Respiratory Rate 14 Respiratory Rate 16 Blood Pressure 100/66 Blood Pressure 114/76 Blood Pressure 108/73 Blood Pressure 111/78 Blood Pressure 109/73 Blood Pressure 90/67 O2 Sat by Pulse Oximetry 100 O2 Sat by Pulse Oximetry 94 O2 Sat by Pulse Oximetry 99 O2 Sat by Pulse Oximetry 99 O2 Sat by Pulse Oximetry 99 O2 Sat by Pulse Oximetry 98 General General Appearance: Alert and In No Apparent Distress Eyes Eye exam: PERRL and EOMI ENT ENT Exam: Mucous Membranes Moist Neck Neck Exam: Normal Inspection and Full ROM Respiratory Respiratory Exam: Normal Lung Sounds Bilat; negative Accessory Muscle Use or Respiratory Distress Cardiovascular Cardiovascular Exam: Regular Rate, Normal Rhythm and Normal Heart Sounds Abdominal Exam Abdominal Exam: Normal Bowel Sounds, Soft and Tenderness (epigastric, RUQ regions, no guarding or rebound) Extremities Extremities Exam: Normal Inspection and Full ROM; negative Edema Neurologic Neurological Exam: Alert, Oriented X3 and CN II-XII Intact; negative Motor Sensory Deficit Skin Skin Exam: Warm and Dry COURSE Treatment Treatment: 53 y/o male with persistent nausea, vomiting and upper abdominal pain over the past several weeks. Has a history of pancreatitis in the past. Studies from yesterday more suggestive of acute duodenitis, vs duodenal ulcer, more than acute pancreatitis. Will repeat labs. Patient given IV fluids. Patient given IV Protonix/Zofran/Dilaudid. 1600 - Has a low sodium, 128 & low potassium, 2.6. Lipase jumped from yesterday, 2,926. Patient has seen Dr. Bingham in the office for follow-up of his pancreatitis. We will consult with him. Patient admitted to the on-call hospital doctor, Dr. Greer. We will continue IV fluids, with potassium, IV analgesia and nausea medicine. We will also continue IV Protonix. Patient can attempt clear fluids tonight. We will keep n.p.o. after midnight in case EGD planned for the a.m. . [facility] Labs Reviewed 09/07/23 13:40 09/07/23 14:18 Laboratory: WBC 7.5 X10^3/uL (3.6-10.0) 09/07/23 13:40 RBC 4.60 X10^6/uL (4.7-6.0) L 09/07/23 13:40 Hgb 16.7 g/dL (13.5-18.0) 09/07/23 13:40 Hct 46.9 % (42.0-54.0) 09/07/23 13:40 MCV 101.8 fL (80.0-100.0) H 09/07/23 13:40 MCH 36.3 pg (27.0-34.0) H 09/07/23 13:40 MCHC 35.6 g/dL (33.0-35.0) H 09/07/23 13:40 RDW 12.9 % (11.6-16.5) 09/07/23 13:40 Plt Count 303 X10^3/uL (150.0-450.0) 09/07/23 13:40 MPV 8.0 fL (7.4-11.0) 09/07/23 13:40 Neut % (Auto) 57.0 % (42.0-75.0) 09/07/23 13:40 Lymph % (Auto) 27.4 % (21.0-51.0) 09/07/23 13:40 [place] % (Auto) 10.8 % (0.0-13.0) 09/07/23 13:40 Eos % (Auto) 4.2 % (0.9-2.9) H 09/07/23 13:40 Baso % (Auto) 0.6 % (0.2-1.0) 09/07/23 13:40 Neut # (Auto) 4.3 x10^3/uL (2.2-4.8) 09/07/23 13:40 Lymph # (Auto) 2.1 X10^3/uL (1.3-2.9) 09/07/23 13:40 [place] # (Auto) 0.8 x10^3/uL (0.3-0.8) 09/07/23 13:40 Eos # (Auto) 0.3 x10^3/uL (0.0-0.2) H 09/07/23 13:40 Baso # (Auto) 0.0 X10^3/uL (0.0-0.1) 09/07/23 13:40 Absolute Nucleated RBC 0.1 /100WBC 09/07/23 13:40 Sodium 128 mmol/L (136-145) L 09/07/23 14:18 Corrected Sodium TNP 09/07/23 14:18 Potassium 2.6 mmol/L (3.5-5.1) L* 09/07/23 14:18 Chloride 89 mmol/L (98-107) L 09/07/23 14:18 Carbon Dioxide 30.3 mmol/L (21-32) 09/07/23 14:18 BUN 14 mg/dL (7-18) 09/07/23 14:18 Creatinine 0.92 mg/dL (0.70-1.30) 09/07/23 14:18 Est GFR (MDRD) Af Amer > 60 (>60) 09/07/23 14:18 Est GFR (MDRD) Non-Af > 60 (>60) 09/07/23 14:18 Glucose 92 mg/dL (65-99) 09/07/23 14:18 Calcium 9.1 mg/dL (8.5-10.1) 09/07/23 14:18 Corrected Calcium TNP 09/07/23 14:18 Total Bilirubin 0.70 mg/dL (0.2-1.0) 09/07/23 14:18 AST 25 Units/L (15-37) 09/07/23 14:18 ALT 22 Units/L (12-78) 09/07/23 14:18 Alkaline Phosphatase 106 Units/L (46-116) 09/07/23 14:18 Total Protein 8.1 g/dL (6.4-8.2) 09/07/23 14:18 Albumin 3.7 g/dL (3.4-5.0) 09/07/23 14:18 Globulin 4.4 g/dL (2.5-4.5) 09/07/23 14:18 Albumin/Globulin Ratio 0.8 Ratio (1.1-2.1) L 09/07/23 14:18 Lipase 2926 Units/L (73-393) H 09/07/23 14:18 Opioid Opioid Risk Tool Age (Thang box if 16-45): No History of Preadolescent Sexual Abuse: No Total: 0 Total Score Risk Category: Low Risk Copyright: Jose Antonio CLAYTON predicting aberrant behaviors Discharge Plan Diagnosis Discharge Problem: Acute duodenitis, Acute on chronic pancreatitis, Electrolyte abnormality Discharge Plan Patient Disposition: 09 ADMITTED INPATIENT Condition: Stable
[2023-09-07 14:09] LABS: BASOPHILS % (AUTO) 0.6 % (0.2-1.0); EOSINOPHILS # (AUTO) 0.3 x10^3/uL (0.0-0.2); EOSINOPHILS % (AUTO) 4.2 % (0.9-2.9); HEMATOCRIT 46.9 % (42.0-54.0); HEMOGLOBIN 16.7 g/dL (13.5-18.0); LYMPHOCYTES # (AUTO) 2.1 X10^3/uL (1.3-2.9); LYMPHOCYTES % (AUTO) 27.4 % (21.0-51.0); MEAN CORPUSCULAR HEMOGLOBIN 36.3 pg (27.0-34.0); MEAN CORPUSCULAR HGB CONC 35.6 g/dL (33.0-35.0); MEAN CORPUSCULAR VOLUME 101.8 fL (80.0-100.0); MONOCYTES # (AUTO) 0.8 x10^3/uL (0.3-0.8); MONOCYTES % (AUTO) 10.8 % (0.0-13.0); NEUTROPHILS # (AUTO) 4.3 x10^3/uL (2.2-4.8); PLATELET COUNT 303 X10^3/uL (150.0-450.0); RED CELL DISTRIBUTION WIDTH 12.9 % (11.6-16.5); WHITE BLOOD COUNT 7.5 X10^3/uL (3.6-10.0)
[2023-09-07] MEDS ORDERED: PROTONIX INJ 40 MG VIAL IVP ONE (14:12)
[2023-09-07] MEDS ORDERED: ZOFRAN INJ 4 MG VIAL IVP ONE (14:12)
[2023-09-07] MEDS ORDERED: DILAUDID INJ IVP ONE (14:12)
[2023-09-07] MEDS ORDERED: ZOFRAN INJ 4 MG VIAL ONE (14:18)
[2023-09-07] MEDS ORDERED: DILAUDID INJ ONE (14:18)
[2023-09-07] MEDS ORDERED: PROTONIX INJ 40 MG VIAL ONE (14:18)
[2023-09-07 14:39] LABS: ALANINE AMINOTRANSFERASE 22 Units/L (12-78); ALBUMIN 3.7 g/dL (3.4-5.0); ALKALINE PHOSPHATASE 106 Units/L (46-116); ASPARTATE AMINO TRANSFERASE 25 Units/L (15-37); BLOOD UREA NITROGEN 14 mg/dL (7-18); CALCIUM 9.1 mg/dL (8.5-10.1); CARBON DIOXIDE 30.3 mmol/L (21-32); CHLORIDE 89 mmol/L (98-107); CREATININE 0.92 mg/dL (0.70-1.30); GLUCOSE 92 mg/dL (65-99); SODIUM 128 mmol/L (136-145); TOTAL PROTEIN 8.1 g/dL (6.4-8.2); eGFR NON BLACK RACES > 60 (>60)
[2023-09-07 14:46] LABS: POTASSIUM 2.6 mmol/L (3.5-5.1)
[2023-09-07 14:47] LABS: LIPASE 2926 Units/L (73-393)
[2023-09-07] MEDS: NICOTINE PATCH TD SCH (15:08)
[2023-09-07] MEDS ORDERED: ZOFRAN INJ 4 MG VIAL IVP PRN (16:04)
[2023-09-07] MEDS ORDERED: CONSULT PHARMACY - POTASSIUM & MAGNESIUM XX SCH (16:04)
[2023-09-07 16:17] LABS: BILIRUBIN,URINE NEGATIVE (NEGATIVE); BLOOD/HEMOGLOBIN,URINE 2+ (NEGATIVE); GLUCOSE, URINE NEGATIVE (NEGATIVE); KETONES,URINE 2+ (NEGATIVE); LEUKOCYTE ESTERASE ,URINE 1+ (NEGATIVE); NITRITES,URINE NEGATIVE (NEGATIVE); PROTEIN,URINE 2+ (NEGATIVE); UROBILINOGEN,URINE 2+ (NORMAL)
[2023-09-07 16:22] LABS: APPEARANCE,URINE CLEAR (CLEAR); COLOR,URINE YELLOW (YELLOW)
[2023-09-07 16:23] LABS: BACTERIA,URINE NEGATIVE /HPF (NEGATIVE); HYALINE CASTS, URINE FEW /LPF (NEGATIVE); SQUAMOUS EPITHELIAL CELL,UR RARE /HPF (NEGATIVE)
[2023-09-07] MEDS: K-DUR TAB 20 MEQ PO SCH ×3 (19:31→23:26)
[2023-09-07] MEDS: DILAUDID INJ IVP PRN ×2 (19:31→23:26)
[2023-09-07] MEDS ORDERED: PULMICORT NEB TX 0.5 MG NEB ONE (19:57)
[2023-09-07] MEDS ORDERED: PROVENTIL NEB TX 0.083% 2.5MG/ 3ML ONE (19:57)
[2023-09-07] MEDS: MAG-OX TAB PO SCH ×2 (20:25→21:21)
[2023-09-07] MEDS: D5 NS + KCL 20 MEQ/L 1,000 ML IV SCH ×2 (20:34→23:27)
[2023-09-07] MEDS ORDERED: PROVENTIL NEB TX 0.083% 2.5MG/ 3ML NEB SCH (21:00)
[2023-09-07] MEDS ORDERED: PULMICORT NEB TX 0.5 MG NEB SCH (21:00)
[2023-09-08] MEDS: DILAUDID INJ IVP PRN ×5 (03:35→21:56)
[2023-09-08] MEDS: D5 NS + KCL 20 MEQ/L 1,000 ML IV SCH ×4 (05:04→17:26)
[2023-09-08 05:06] LABS: BASOPHILS % (AUTO) 0.7 % (0.2-1.0); EOSINOPHILS # (AUTO) 0.3 x10^3/uL (0.0-0.2); EOSINOPHILS % (AUTO) 6.2 % (0.9-2.9); HEMATOCRIT 39.9 % (42.0-54.0); LYMPHOCYTES # (AUTO) 1.6 X10^3/uL (1.3-2.9); LYMPHOCYTES % (AUTO) 30.6 % (21.0-51.0); MEAN CORPUSCULAR HEMOGLOBIN 36.1 pg (27.0-34.0); MEAN CORPUSCULAR HGB CONC 35.4 g/dL (33.0-35.0); MEAN PLATELET VOLUME 8.1 fL (7.4-11.0); MONOCYTES # (AUTO) 0.6 x10^3/uL (0.3-0.8); MONOCYTES % (AUTO) 10.8 % (0.0-13.0); NEUTROPHILS # (AUTO) 2.8 x10^3/uL (2.2-4.8); NEUTROPHILS % (AUTO) 51.7 % (42.0-75.0); PLATELET COUNT 198 X10^3/uL (150.0-450.0); RED BLOOD COUNT 3.91 X10^6/uL (4.7-6.0); RED CELL DISTRIBUTION WIDTH 12.6 % (11.6-16.5); WHITE BLOOD COUNT 5.3 X10^3/uL (3.6-10.0)
[2023-09-08 05:16] LABS: ALANINE AMINOTRANSFERASE 19 Units/L (12-78); ALKALINE PHOSPHATASE 84 Units/L (46-116); ASPARTATE AMINO TRANSFERASE 22 Units/L (15-37); BLOOD UREA NITROGEN 8 mg/dL (7-18); CALCIUM 8.5 mg/dL (8.5-10.1); CARBON DIOXIDE 34.3 mmol/L (21-32); CHLORIDE 95 mmol/L (98-107); COR CA(FOR HYPOALB) 9.3 mg/dL (8.5-10.1); CREATININE 0.87 mg/dL (0.70-1.30); GLUCOSE 108 mg/dL (65-99); MAGNESIUM 1.4 mg/dL (2.0-2.9); SODIUM 133 mmol/L (136-145); TOTAL PROTEIN 6.7 g/dL (6.4-8.2); eGFR NON BLACK RACES > 60 (>60)
[2023-09-08 05:17] LABS: HEMOGLOBIN 14.1 g/dL (13.5-18.0)
[2023-09-08] MEDS ORDERED: CONSULT PHARMACY - POTASSIUM & MAGNESIUM XX SCH (06:00)
[2023-09-08] MEDS ORDERED: K-RIDER 10 MEQ/NS 100 ML 10 MEQ/100 ML BAG IV SCH (09:00)
[2023-09-08] MEDS ORDERED: PROTONIX INJ 40 MG VIAL IVP SCH (09:00)
[2023-09-08 09:02] LABS: AMYLASE 268 Units/L (25-115)
[2023-09-08] MEDS: PROTONIX INJ 40 MG VIAL IVP SCH ×2 (09:07→20:34)
[2023-09-08] MEDS: NICOTINE PATCH TD SCH (09:08)
[2023-09-08 09:20] LABS: LIPASE 1974 Units/L (73-393)
[2023-09-08] MEDS: MAGNESIUM SULFATE 1 GRAM/100 mL PREMIX 1 G/100 ML BAG IV SCH ×4 (09:20→13:31)
--- NOTE | 2023-09-08 13:31 | DR.H&P ---
H&P - History of Present Illness History of Present Illness: 53 y/o male sent in by his MD for evaluation. Has a history of chronic cryptitis in the past. Over the past few weeks he has been having increasing difficulty in eating. Having pain when he eats, located in the epigastric and right upper quadrant region. Frequently gets nauseous and vomits. Pain is worse with laying down as well as eating. Nothing makes it better. Patient does not drink alcohol anymore. Seen here in April for his last episode of severe pancreatitis. Patient had CTs and labs done as an outpatient yesterday thru his primary care physician. CT the abdomen pelvis shows improvement of the pancreas compared to last time, he does now have increased inflammation of his duodenal region. Liver enzymes better than last time. Lipase 888, but was 2,000 last time. Pt reports he had a work up at [facility] in April. - Past Medical History Past Medical History: GERD, Hypertension - Past Surgical History Surgical History: Cholecystectomy - Family History Family Medical History: Hypertension - Social History Does patient currently use any type of tobacco product: Yes Have you used tobacco products in the last 12 months: Yes Type of Tobacco Use: Cigarettes How many years tobacco product used: 14 Does any household member use tobacco: No Alcohol Use: None - Review of Systems Constitutional: Malaise Eyes: No Symptoms Reported ENT: No Symptoms Reported Respiratory: No Symptoms Reported Cardiovascular: No Symptoms Reported Gastrointestinal: Nausea, Vomiting, Abdominal Pain, Diarrhea Genitourinary: No Symptoms Reported Musculoskeletal: Back Pain Skin: No Symptoms Reported Neurological: No Symptoms Reported - Physical Exam Vital Signs: Vital Signs Temperature 98.2 F Temperature 98.1 F Pulse Rate [Right Radial] 70 Pulse Rate [Right Radial] 81 Respiratory Rate 20 Respiratory Rate 20 Respiratory Rate 20 Respiratory Rate 20 Blood Pressure [Right Arm] 104/65 Blood Pressure [Right Arm] 99/61 O2 Sat by Pulse Oximetry 97 O2 Sat by Pulse Oximetry 97 Oriented: Normal Eyes: Normal Ear: Normal Nose: Normal Throat: Normal Respiratory: RLL Diminished, LLL Diminished : Normal Auscultation: Bowel Sounds: Increased Tenderness: RUQ, LUQ, Epigastric Skin: Decreased Turgur Musculoskeletal: Back:Lumbar Psychiatric: Normal Mood Description: Calm Speech Pattern: Clear, Appropriate - Assessment/Plan (1) Acute on chronic pancreatitis Status: Acute Plan: ADMIT, NPO. IV HYDRATION, PAIN AND NAUSEA CONTROL. BP CONTROL. VERIFY HOME MEDICATION. ELECTROLYTE REPLACEMENT. GI CONSULT, HOLD NSAIDS. BID PPI THERAPY (2) Acute duodenitis Status: Acute (3) COPD (chronic obstructive pulmonary disease) Status: Acute (4) HTN (hypertension) Qualifiers: Hypertension type: primary hypertension Qualified Code(s): I10 - Essential (primary) hypertension Status: Chronic (5) Hypomagnesemia Status: Acute - Allergies Allergies/Adverse Reactions: Allergies Allergy/AdvReac Type Severity Reaction Status Date / Time No Known Drug Allergies Allergy Unknown Verified 07/20/23 09:13 - Medications Home Medications: Home Medications Medication Instructions Recorded Confirmed albuterol sulfate 90 mcg/actuation 2 puff inhalation TID 02/10/22 09/07/23 aerosol inhaler (ProAir HFA) atenolol 50 mg-chlorthalidone 25 1 tab PO DAILY 02/10/22 09/07/23 mg tablet citalopram 20 mg tablet 20 mg PO DAILY 02/10/22 09/07/23 fluticasone 250 mcg-salmeterol 50 1 inh inhalation BID 02/10/22 09/07/23 mcg/dose blistr powdr for inhalation (Advair Diskus) hydrocodone 7.5 mg-acetaminophen 1 tab PO TID 02/10/22 09/07/23 325 mg tablet diclofenac sodium 75 mg 75 mg PO BID 05/01/23 09/07/23 tablet,delayed release Previous Rx's Medication Instructions Recorded gabapentin 100 mg capsule 100 mg PO TID PRN pain #90 caps 07/20/23 promethazine 25 mg tablet 25 mg PO Q6H PRN nausea and 07/21/23 vomiting #30 tabs pantoprazole 40 mg tablet,delayed 40 mg PO BID #60 tabs 08/19/23 release (Protonix)
[2023-09-08] MEDS: NORCO 7.5/325 MG TAB PO SCH ×2 (14:07→21:00)
[2023-09-08] MEDS: NEURONTIN CAP 100 MG PO PRN (20:34)
[2023-09-09] MEDS: D5 NS + KCL 20 MEQ/L 1,000 ML IV SCH ×4 (01:23→19:46)
[2023-09-09 05:05] LABS: BASOPHILS # (AUTO) 0.1 X10^3/uL (0.0-0.1); BASOPHILS % (AUTO) 2.3 % (0.2-1.0); EOSINOPHILS # (AUTO) 0.3 x10^3/uL (0.0-0.2); EOSINOPHILS % (AUTO) 7.3 % (0.9-2.9); HEMATOCRIT 38.5 % (42.0-54.0); HEMOGLOBIN 13.6 g/dL (13.5-18.0); LYMPHOCYTES % (AUTO) 22.5 % (21.0-51.0); MEAN CORPUSCULAR HEMOGLOBIN 36.1 pg (27.0-34.0); MEAN CORPUSCULAR HGB CONC 35.3 g/dL (33.0-35.0); MEAN CORPUSCULAR VOLUME 102.4 fL (80.0-100.0); MEAN PLATELET VOLUME 7.7 fL (7.4-11.0); MONOCYTES # (AUTO) 0.4 x10^3/uL (0.3-0.8); MONOCYTES % (AUTO) 9.5 % (0.0-13.0); NEUTROPHILS # (AUTO) 2.6 x10^3/uL (2.2-4.8); NEUTROPHILS % (AUTO) 58.4 % (42.0-75.0); PLATELET COUNT 186 X10^3/uL (150.0-450.0); RED BLOOD COUNT 3.76 X10^6/uL (4.7-6.0); RED CELL DISTRIBUTION WIDTH 12.9 % (11.6-16.5); WHITE BLOOD COUNT 4.4 X10^3/uL (3.6-10.0)
[2023-09-09 05:23] LABS: ALANINE AMINOTRANSFERASE 18 Units/L (12-78); ALBUMIN 2.9 g/dL (3.4-5.0); ALKALINE PHOSPHATASE 83 Units/L (46-116); ASPARTATE AMINO TRANSFERASE 24 Units/L (15-37); BLOOD UREA NITROGEN 3 mg/dL (7-18); CALCIUM 8.5 mg/dL (8.5-10.1); CARBON DIOXIDE 30.2 mmol/L (21-32); CHLORIDE 98 mmol/L (98-107); COR CA(FOR HYPOALB) 9.4 mg/dL (8.5-10.1); CREATININE 0.77 mg/dL (0.70-1.30); GLUCOSE 99 mg/dL (65-99); MAGNESIUM 1.6 mg/dL (2.0-2.9); SODIUM 135 mmol/L (136-145); TOTAL PROTEIN 6.7 g/dL (6.4-8.2); eGFR NON BLACK RACES > 60 (>60)
[2023-09-09] MEDS: NORCO 7.5/325 MG TAB PO SCH ×3 (05:35→21:23)
[2023-09-09] MEDS: DILAUDID INJ IVP PRN ×4 (05:54→19:46)
[2023-09-09 05:55] LABS: AMYLASE 332 Units/L (25-115); LIPASE 2930 Units/L (73-393)
[2023-09-09] MEDS ORDERED: CONSULT PHARMACY - POTASSIUM & MAGNESIUM XX SCH (07:00)
[2023-09-09] MEDS: NICOTINE PATCH TD SCH (10:31)
[2023-09-09] MEDS: PROTONIX INJ 40 MG VIAL IVP SCH ×2 (10:31→21:22)
[2023-09-09] MEDS: CELEXA PO SCH (10:39)
[2023-09-09] MEDS: K-DUR TAB 20 MEQ PO SCH ×2 (11:27→14:09)
[2023-09-09] MEDS: MAG-OX TAB PO SCH (11:28)
[2023-09-09] MEDS ORDERED: NS 1,000 ML IV 1,000 ML ONE (12:24)
[2023-09-09] MEDS ORDERED: DIPRIVAN VIAL 20 ML ONE (12:43)
[2023-09-09] MEDS: CARAFATE PO SCH ×2 (14:09→21:22)
[2023-09-09] MEDS: NEURONTIN CAP 100 MG PO PRN (21:23)
[2023-09-10] MEDS: DILAUDID INJ IVP PRN ×3 (00:27→08:44)
[2023-09-10] MEDS: D5 NS + KCL 20 MEQ/L 1,000 ML IV SCH ×2 (00:27→10:45)
[2023-09-10] MEDS ORDERED: COLACE CAP 100 MG PO PRN (04:21)
[2023-09-10] MEDS: CARAFATE PO SCH (05:39)
[2023-09-10] MEDS: NORCO 7.5/325 MG TAB PO SCH (05:40)
[2023-09-10 06:22] LABS: AMYLASE 254 Units/L (25-115)
[2023-09-10 06:27] LABS: LIPASE 1774 Units/L (73-393)
[2023-09-10] MEDS ORDERED: CONSULT PHARMACY - POTASSIUM & MAGNESIUM XX SCH (07:00)
[2023-09-10 07:26] LABS: BASOPHILS % (AUTO) 0.7 % (0.2-1.0); EOSINOPHILS # (AUTO) 0.4 x10^3/uL (0.0-0.2); EOSINOPHILS % (AUTO) 7.9 % (0.9-2.9); HEMATOCRIT 38.5 % (42.0-54.0); HEMOGLOBIN 13.3 g/dL (13.5-18.0); LYMPHOCYTES # (AUTO) 1.7 X10^3/uL (1.3-2.9); LYMPHOCYTES % (AUTO) 37.9 % (21.0-51.0); MEAN CORPUSCULAR HEMOGLOBIN 35.8 pg (27.0-34.0); MEAN CORPUSCULAR HGB CONC 34.6 g/dL (33.0-35.0); MEAN CORPUSCULAR VOLUME 103.5 fL (80.0-100.0); MONOCYTES # (AUTO) 0.4 x10^3/uL (0.3-0.8); MONOCYTES % (AUTO) 9.6 % (0.0-13.0); NEUTROPHILS % (AUTO) 43.9 % (42.0-75.0); PLATELET COUNT 191 X10^3/uL (150.0-450.0); RED BLOOD COUNT 3.72 X10^6/uL (4.7-6.0); RED CELL DISTRIBUTION WIDTH 12.9 % (11.6-16.5); WHITE BLOOD COUNT 4.5 X10^3/uL (3.6-10.0)
[2023-09-10 07:34] LABS: ALANINE AMINOTRANSFERASE 19 Units/L (12-78); ALBUMIN 2.9 g/dL (3.4-5.0); ALKALINE PHOSPHATASE 83 Units/L (46-116); ASPARTATE AMINO TRANSFERASE 25 Units/L (15-37); BLOOD UREA NITROGEN 1 mg/dL (7-18); CALCIUM 8.8 mg/dL (8.5-10.1); CARBON DIOXIDE 29.5 mmol/L (21-32); CHLORIDE 99 mmol/L (98-107); COR CA(FOR HYPOALB) 9.7 mg/dL (8.5-10.1); CREATININE 0.77 mg/dL (0.70-1.30); GLUCOSE 89 mg/dL (65-99); MAGNESIUM 1.4 mg/dL (2.0-2.9); POTASSIUM 3.3 mmol/L (3.5-5.1); SODIUM 135 mmol/L (136-145); TOTAL PROTEIN 6.5 g/dL (6.4-8.2); eGFR NON BLACK RACES > 60 (>60)
[2023-09-10 07:56] VITALS: BP 137/78; PULSE 75; TEMP 98.8; O2SAT 96
[2023-09-10 08:45] VITALS: RESP 20
[2023-09-10] MEDS: NICOTINE PATCH TD SCH (10:45)
[2023-09-10] MEDS: MAGNESIUM SULFATE 1 GRAM/100 mL PREMIX 1 G/100 ML BAG IV SCH (10:45)
[2023-09-10] MEDS: K-RIDER 10 MEQ/NS 100 ML 10 MEQ/100 ML BAG IV SCH (10:46)
[2023-09-10] MEDS: PROTONIX INJ 40 MG VIAL IVP SCH (10:47)
[2023-09-10] MEDS: CELEXA PO SCH (10:47)
== END 2023-09-10 10:40 | disposition home or self-care (01) | DRG 440 ==
LOC: ER 13:14 → MED/SURG 15:57
PROVIDERS: ADMIT Internal Medicine; ATTEND Internal Medicine

== ENCOUNTER 2024-04-09 15:19 | Inpatient (IN) ==
--- NOTE | 2024-04-09 19:12 | DR.N/VMALE ---
HPI Time Seen Time Seen by Provider: 04/09/24 19:12 Primary Care Physician Primary Care Physician: Dr. Gupta/Dr. Bhatti Complaints Chief Complaint Doctors Comments: Patient has history of chronic pancreatitis and states that usually his pain is 3-4/10. Patient states that at 2 AM this morning his pain worsened. Patient had 3-4 episodes of emesis, dry heaving 3-4 episodes, 1 diarrhea episode that was black. Patient states that his pain was 9/10 prior to arrival in the ED today. Patient denies: Fever, hematemesis, back pain, shortness of breath, chest pain. 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 Pt c/o three days of constant nausea, vomiting, and generalized abdominal pain. Self Treatment fo Chief Complaint: Pt has been taking Zofran ODT, Protonix, Creon and Fentanyl patch with no improvement of symptoms. 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 Past Surgical History: Yes Surgical History: Cholecystectomy and Ortho Surgery Family History History of Family Medical Conditions: Yes Family Medical History: Diabetes Mellitus, Cancer, [place], Coronary Artery Disease and Hypertension Social History Does patient currently use any type of tobacco product: Yes Have you used tobacco products in the last 12 months: Yes Type of Tobacco Use: Cigarettes Does any household member use tobacco: No Alcohol Use: None Do you use any recreational Drugs:: No Lives With: Significant Other Lives Where: Home Travel Risk Coronavirus risk:travel/contact w/high risk person: No Has patient experienced Coronavirus symptoms: No Infectious screening In the last 2 months have you had wt loss of >10#?: NO Have you had fever, night sweats or hemotysis?: No Have you traveled outside the country in the last 6 months?: No Isolation: Standard ROS Review of Systems Constitutional: No Symptoms Reported Eyes: No Symptoms Reported ENTM: No Symptoms Reported Respiratoy: No Symptoms Reported Cardiovascular: No Symptoms Reported Gastrointestinal/Abdominal: Abdominal Pain, Diarrhea (1 episode black), Nausea, Vomiting and Food Intolerance (04/06/2024 is the last time he ate or drank anything) Genitourinary: No Symptoms Reported Neurological: No Symptoms Reported Musculoskeletal: No Symptoms Reported Integumentary: No Symptoms Reported Hematologic/Lymphatic: No Symptoms Reported Endocrine: No Symptoms Reported Psychiatric: No Symptoms Reported All Other Systems: Reviewed and Negative PE Vital Signs Vitals: Vital Signs Pulse Rate [Apical] 84 Respiratory Rate 18 Respiratory Rate 18 Respiratory Rate 20 Blood Pressure [Right Arm] 127/73 O2 Sat by Pulse Oximetry 98 General Limitations: No Limitations General Appearance: Alert and In No Apparent Distress Head Head Exam: Normal Inspection Eyes Eye exam: Normal Appearance ENT ENT Exam: Normal Exam Neck Neck Exam: Normal Inspection Chest Chest Inspection: Normal Inspection Respiratory Respiratory Exam: Normal Lung Sounds Bilat Respiratory Exam: Bilateral: Clear to Auscultation Cardiovascular Cardiovascular Exam: Regular Rate and Normal Rhythm Abdominal Exam Abdominal Exam: Soft, Tenderness (periumbilical region), Guarding and Hypoactive Bowel Sounds Abdominal Tenderness: RLQ, LLQ and Other (periumbilical) Rectal Rectal Exam: Deferred Exam: Male: Deferred Extremities Extremities Exam: Normal Inspection Back Back Exam: Normal Inspection Neurologic Neurological Exam: Alert and Oriented X3 Psychiatric Psychiatric Exam: Normal Affect and Normal Mood Skin Skin Exam: Warm, Dry, Intact and Normal Color MDM Differential Diagnosis Differential Diagnosis: Considerations may Include:: Bowel Obstruction, Inflammatory BD, Pancreatitis and Other (Bowel perforation,Bowel ischemia) COURSE Treatment Treatment: Patient was brought to an exam room. IV access was initiated and labs and tests were ordered. Patient's CBC revealed a wbc 12.7, CMP revealed a K2.6. Patient was given Kcl 20meq iv. Patient's abdomen pelvis CT with contrast revealed duodenal ulcer bleeding, intestinal bleeding. Patient has Acute Pancreatitis. Patient also received Zosyn 3.375g iv and dialaudid 1mg (2 doses) and zofran 4mg (2 doses) in the ED. Discussed case with Dr Bhatti who has admitted Patient to his service for further inpatient evaluation. ROR Labs Reviewed Laboratory Results Reviewed?: Yes 04/09/24 19:25 04/09/24 19:25 Laboratory: WBC 12.7 X10^3/uL (3.6-10.0) H 04/09/24 19:25 RBC 4.75 X10^6/uL (4.7-6.0) 04/09/24 19:25 Hgb 16.5 g/dL (13.5-18.0) 04/09/24: Hct 47.4 % (42.0-54.0) 04/09/24: MCV 99.9 fL (80.0-100.0) 04/09/24 19: MCH 34.7 pg (27.0-34.0) H 04/09/24: MCHC 34.7 g/dL (33.0-35.0) 04/09/24: RDW 14.1 % (11.6-16.5) 04/09/24: Plt Count 330 X10^3/uL (150.0-450.0) 04/09/24: MPV 7.2 fL (7.4-11.0) L 04/09/24: Neut % (Auto) 77.5 % (42.0-75.0) H 04/09/24 19: Lymph % (Auto) 14.5 % (21.0-51.0) L 04/09/24: [place] % (Auto) 7.1 % (0.0-13.0) 04/09/24: Eos % (Auto) 0.2 % (0.9-2.9) L 04/09/24: Baso % (Auto) 0.7 % (0.2-1.0) 04/09/24: Neut # (Auto) 9.9 x10^3/uL (2.2-4.8) H 04/09/24 19:25 Lymph # (Auto) 1.9 X10^3/uL (1.3-2.9) 04/09/24: [place] # (Auto) 0.9 x10^3/uL (0.3-0.8) H 04/09/24 19: Eos # (Auto) 0.0 x10^3/uL (0.0-0.2) 04/09/24: Baso # (Auto) 0.1 X10^3/uL (0.0-0.1) 05/12/24 19:25 Absolute Nucleated RBC 0.1 /100WBC 04/09/24 19:25 Sodium 133 mmol/L (136-145) L 04/09/24 19:25 Corrected Sodium 133 mmol/L (136-145) L 04/09/24 19:25 Potassium 2.6 mmol/L (3.5-5.1) L* 04/09/24 19:25 Chloride 90 mmol/L (98-107) L 04/09/24 19:25 Carbon Dioxide 32.4 mmol/L (21-32) H 04/09/24 19:25 BUN 16 mg/dL (7-18) 04/09/24 19:25 Creatinine 0.86 mg/dL (0.70-1.30) 04/09/24 19:25 Est GFR (MDRD) Af Amer > 60 (>60) 04/09/24 19:25 Est GFR (MDRD) Non-Af > 60 (>60) 04/09/24 19:25 Glucose 117 mg/dL (65-99) H 04/09/24 19:25 Lactic Acid 1.5 mmol/L (0.4-2.0) 04/09/24 19:25 Calcium 9.8 mg/dL (8.5-10.1) 04/09/24 19:25 Corrected Calcium TNP 04/09/24 19:25 Total Bilirubin 0.60 mg/dL (0.2-1.0) 04/09/24 19:25 AST 17 Units/L (15-37) 04/09/24 19:25 ALT 16 Units/L (12-78) 04/09/24 19:25 Alkaline Phosphatase 83 Units/L (46-116) 04/09/24 19:25 C-Reactive Protein 1.70 mg/L (0-3.0) 04/09/24 19:25 Total Protein 8.5 g/dL (6.4-8.2) H 04/09/24 19:25 Albumin 3.8 g/dL (3.4-5.0) 04/09/24 19:25 Globulin 4.7 g/dL (2.5-4.5) H 04/09/24 19:25 Albumin/Globulin Ratio 0.8 Ratio (1.1-2.1) L 04/09/24 19:25 Amylase 456 Units/L (25-115) H 04/09/24 19:25 Lipase 383 Units/L (16-77) H 04/09/24 19:25 Specimen Type Clean catch urine 04/09/24 23:02 Urine Color Yellow (YELLOW) 04/09/24 23:02 Urine Appearance Clear (CLEAR) 04/09/24 23:02 Urine pH 7.0 (5.0 - 8.0) 04/09/24 23:02 Ur Specific [place] 1.010 (1.000-1.030) 04/09/24 23:02 Urine Protein 2+ (NEGATIVE) 04/09/24 23:02 Urine Glucose (UA) Negative (NEGATIVE) 04/09/24 23:02 Urine Ketones Negative (NEGATIVE) 04/09/24 23:02 Urine Blood 3+ (NEGATIVE) 04/09/24 23:02 Urine Nitrite Negative (NEGATIVE) 04/09/24 23:02 Urine Bilirubin Negative (NEGATIVE) 04/09/24 23:02 Urine Urobilinogen 1+ (NORMAL) 04/09/24 23:02 Ur Leukocyte Esterase Negative (NEGATIVE) 04/09/24 23:02 Urine RBC 0-2 /HPF (0-3) 04/09/24 23:02 Urine WBC 0-2 /HPF (0-5) 04/09/24 23:02 Ur Squamous Epith Cells Rare /HPF (NEGATIVE) 04/09/24 23:02 Urine Bacteria Negative /HPF (NEGATIVE) 04/09/24 23:02 Ur Culture Indicated? No/not indicated 04/09/24 23:02 Opioid Opioid Risk Tool Age (Thang box if 16-45): No History of Preadolescent Sexual Abuse: No Total: 0 Total Score Risk Category: Low Risk Copyright: Jose Antonio CLAYTON predicting aberrant behaviors Discharge Plan Diagnosis Discharge Problem: Acute pancreatitis, Acute duodenal ulcer with bleeding, Intestinal bleeding, Acute hypokalemia Discharge Plan Patient Disposition: 09 ADMITTED INPATIENT Condition: Stable Prescriptions: No Action pantoprazole [Protonix] 40 mg tablet,delayed release (DR/EC) 40 mg PO BID Qty: 60 2RF sucralfate [Carafate] 1 gram tablet 1 g PO TID Qty: 90 2RF dicyclomine 10 mg capsule 10 mg PO QID PRN (Reason: abdominal pain) Qty: 120 1RF gabapentin 300 mg capsule 300 mg PO BID Qty: 60 1RF atenolol-chlorthalidone 50-25 mg Tablet 1 tab PO DAILY citalopram 20 mg Tablet 20 mg PO DAILY magnesium 200 mg Tablet 400 mg PO QDAY Qty: 60 0RF fluticasone propion-salmeterol [Advair Diskus] 250-50 mcg/dose Blister With Device 1 inh INHALATION BID hydrocodone-acetaminophen 10-325 mg Tablet 1 tab PO Q4-6H PRN fentanyl 25 mcg/hr patch 72 hour 1 patch transdermal Q3D Creon 24,000-76,000 -120,000 unit Capsule,Delayed Release(Dr/Ec) 2 cap PO TID Rx Instructions: administer with meals and/or snacks potassium chloride 20 mEq tablet extended release 20 meq PO BID MDD 2 Qty: 20 0RF ondansetron 4 mg tablet,disintegrating 4 mg PO Q8H MDD 3 PRN (Reason: nausea and vomiting) Qty: 20 0RF albuterol sulfate 90 mcg/actuation Hfa Aerosol Inhaler 2 inh INHALATION TID PRN Health Concerns: Post Hospitalization: new medications and changes needed to prevent readmission or further decline. Pt educated and given instructions on all concerns. Plan of Treatment: Continue with present treatment and follow up plan. Pt is to keep follow up appointment as instructed and take medications as ordered. Orders to Discharge Patient Discharge Orders: Transfer (Routine); Ordered 04/09/24 Ordered By: Iesha Randhawa Follow ups/Referrals Follow ups/Referrals: DANIELLE GUPTA [Primary Care Provider] - 3 days Instructions Stand Alone Forms: Post Hospital Follow Up Care
[2024-04-09] MEDS: NS 1,000 ML IV 1,000 ML IV ONE (19:30)
[2024-04-09] MEDS: DILAUDID INJ IVP ONE ×2 (19:31→23:13)
[2024-04-09] MEDS: ZOFRAN INJ 4 MG VIAL IVP ONE ×2 (19:31→23:12)
[2024-04-09 19:48] LABS: BASOPHILS # (AUTO) 0.1 X10^3/uL (0.0-0.1); BASOPHILS % (AUTO) 0.7 % (0.2-1.0); EOSINOPHILS % (AUTO) 0.2 % (0.9-2.9); HEMATOCRIT 47.4 % (42.0-54.0); HEMOGLOBIN 16.5 g/dL (13.5-18.0); LYMPHOCYTES # (AUTO) 1.9 X10^3/uL (1.3-2.9); LYMPHOCYTES % (AUTO) 14.5 % (21.0-51.0); MEAN CORPUSCULAR HEMOGLOBIN 34.7 pg (27.0-34.0); MEAN CORPUSCULAR HGB CONC 34.7 g/dL (33.0-35.0); MEAN CORPUSCULAR VOLUME 99.9 fL (80.0-100.0); MEAN PLATELET VOLUME 7.2 fL (7.4-11.0); MONOCYTES # (AUTO) 0.9 x10^3/uL (0.3-0.8); MONOCYTES % (AUTO) 7.1 % (0.0-13.0); NEUTROPHILS # (AUTO) 9.9 x10^3/uL (2.2-4.8); NEUTROPHILS % (AUTO) 77.5 % (42.0-75.0); PLATELET COUNT 330 X10^3/uL (150.0-450.0); RED BLOOD COUNT 4.75 X10^6/uL (4.7-6.0); RED CELL DISTRIBUTION WIDTH 14.1 % (11.6-16.5); WHITE BLOOD COUNT 12.7 X10^3/uL (3.6-10.0)
[2024-04-09 19:59] LABS: ALANINE AMINOTRANSFERASE 16 Units/L (12-78); ALBUMIN 3.8 g/dL (3.4-5.0); ALKALINE PHOSPHATASE 83 Units/L (46-116); AMYLASE 456 Units/L (25-115); ASPARTATE AMINO TRANSFERASE 17 Units/L (15-37); BLOOD UREA NITROGEN 16 mg/dL (7-18); CALCIUM 9.8 mg/dL (8.5-10.1); CARBON DIOXIDE 32.4 mmol/L (21-32); CHLORIDE 90 mmol/L (98-107); COR NA(FOR HYPERGLY) 133 mmol/L (136-145); CREATININE 0.86 mg/dL (0.70-1.30); GLUCOSE 117 mg/dL (65-99); SODIUM 133 mmol/L (136-145); TOTAL PROTEIN 8.5 g/dL (6.4-8.2); eGFR NON BLACK RACES > 60 (>60)
[2024-04-09 20:04] LABS: POTASSIUM 2.6 mmol/L (3.5-5.1)
[2024-04-09 20:10] LABS: LIPASE 383 Units/L (16-77)
[2024-04-09] MEDS: K-RIDER 10 MEQ/100 ML WATER 10 MEQ/100 ML BAG IV ONE ×2 (20:10→21:23)
[2024-04-09] MEDS: NICOTINE PATCH TD ONE (20:22)
[2024-04-09] MEDS: NS 1,000 ML IV 1,000 ML IV SCH (20:31)
--- NOTE | 2024-04-09 21:07 | CT ---
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 Pt c/o three days of constant nausea, vomiting, and gen eralized abdominal pain COMPARISON: 03/31/2024. TECHNIQUE: Following the intravenous administration of iodinated contrast, spiral CT imaging was performed throu gh the abdomen and pelvis and axial, coronal, and sagittal CT images were generated. FINDINGS: The lung bases are clear without effusion. The heart size is normal. Liver is normal. Gallbladder has been removed. There are calcifications in the pancreatic head. There is dilation of the main pa ncreatic duct and there is some atrophy in the pancreatic body and tail. The spleen and adrenal glan ds are normal. Kidneys are normal in size and enhancement. There is gastric wall thickening distall y and this extends into the descending duodenal. There is inflammation in the wall and there is lio ration of the surrounding fat. There appears to be a perforating ulcer in the posterior wall of the duodenal with some active bleeding into the ulcer cavity. There is some ectasia and fluid-filled sma ll bowel with the largest loop measuring up to 3.2 cm in diameter. There is a 2nd area of presumed a ctive bleeding in the small bowel in the left iliac fossa. The appendix is normal. Large bowel is u nremarkable. There is a small volume of free fluid in the pelvis. There is mild urinary bladder wal l thickening. Prostate measures 4.6 cm in diameter. There is moderate systemic atherosclerosis. Th ere is degeneration of the lumbar spine and in the hips. IMPRESSION: 1. Severe gastro duodenitis with deep ulceration in the posterior wall of the duodenum and severe inf lammation in the surrounding wall with several small pockets of fluid in the inflamed tissue near the duodenum with the largest measuring up to 1.4 cm in diameter. If not treated, this ulcer is at high risk for complete perforation. 2. There is a focus of active bleeding and contrast extravasation into the bed of the ulcer. 3. Chronic pancreatitis with dilation of the main pancreatic duct and possibly some low-grade acute p ancreatitis in the pancreatic head. 4. 2nd area of active bleeding with contrast extravasation in the small bowel in the left iliac fossa . THIS IS AN ELECTRONICALLY VERIFIED FINAL REPORT 04/09/2024 9:03 PM - Electronically signed by Klaus Anne MD
[2024-04-09 23:12] LABS: BILIRUBIN,URINE NEGATIVE (NEGATIVE); BLOOD/HEMOGLOBIN,URINE 3+ (NEGATIVE); GLUCOSE, URINE NEGATIVE (NEGATIVE); KETONES,URINE NEGATIVE (NEGATIVE); LEUKOCYTE ESTERASE ,URINE NEGATIVE (NEGATIVE); NITRITES,URINE NEGATIVE (NEGATIVE); PROTEIN,URINE 2+ (NEGATIVE); UROBILINOGEN,URINE 1+ (NORMAL)
[2024-04-09 23:15] LABS: APPEARANCE,URINE CLEAR (CLEAR); BACTERIA,URINE NEGATIVE /HPF (NEGATIVE); COLOR,URINE YELLOW (YELLOW); RBC,URINE 0-2 /HPF (0-3); SQUAMOUS EPITHELIAL CELL,UR RARE /HPF (NEGATIVE)
[2024-04-09] MEDS: NS 250 ML IV 25 ML IV PRN (23:17)
[2024-04-09] MEDS: ZOSYN VIAL 3.375 GRAMS 3.375 G in NS 100 ML IV 100 ML IV SCH (23:17)
[2024-04-09] MEDS ORDERED: CONSULT PHARMACY - POTASSIUM & MAGNESIUM XX SCH (23:45)
[2024-04-09] MEDS ORDERED: PROVENTIL NEB TX 0.083% 2.5MG/ 3ML NEB PRN (23:55)
[2024-04-10] MEDS: OMNIPAQUE 350 mg/mL 100 mL BTL 100 ML ONE (00:13)
[2024-04-10 00:39] VITALS: BMI 15.6
[2024-04-10] MEDS: ZOFRAN INJ 4 MG VIAL IVP PRN ×2 (03:02→06:56)
[2024-04-10] MEDS: DILAUDID INJ IVP PRN (03:02)
[2024-04-10] MEDS: CARAFATE PO SCH ×2 (05:11→13:11)
[2024-04-10 06:34] LABS: BASOPHILS # (AUTO) 0.1 X10^3/uL (0.0-0.1); BASOPHILS % (AUTO) 0.5 % (0.2-1.0); EOSINOPHILS # (AUTO) 0.1 x10^3/uL (0.0-0.2); EOSINOPHILS % (AUTO) 1.3 % (0.9-2.9); HEMATOCRIT 40.5 % (42.0-54.0); LYMPHOCYTES # (AUTO) 2.1 X10^3/uL (1.3-2.9); LYMPHOCYTES % (AUTO) 17.7 % (21.0-51.0); MEAN CORPUSCULAR HEMOGLOBIN 34.6 pg (27.0-34.0); MEAN CORPUSCULAR HGB CONC 34.6 g/dL (33.0-35.0); MEAN CORPUSCULAR VOLUME 100.1 fL (80.0-100.0); MEAN PLATELET VOLUME 7.7 fL (7.4-11.0); MONOCYTES # (AUTO) 1.1 x10^3/uL (0.3-0.8); MONOCYTES % (AUTO) 9.3 % (0.0-13.0); NEUTROPHILS # (AUTO) 8.4 x10^3/uL (2.2-4.8); NEUTROPHILS % (AUTO) 71.2 % (42.0-75.0); PLATELET COUNT 253 X10^3/uL (150.0-450.0); RED BLOOD COUNT 4.04 X10^6/uL (4.7-6.0); RED CELL DISTRIBUTION WIDTH 13.9 % (11.6-16.5); WHITE BLOOD COUNT 11.8 X10^3/uL (3.6-10.0)
[2024-04-10 06:56] LABS: ALANINE AMINOTRANSFERASE 12 Units/L (12-78); ALBUMIN 3.2 g/dL (3.4-5.0); ALKALINE PHOSPHATASE 67 Units/L (46-116); ASPARTATE AMINO TRANSFERASE 16 Units/L (15-37); BLOOD UREA NITROGEN 17 mg/dL (7-18); CHLORIDE 95 mmol/L (98-107); COR CA(FOR HYPOALB) 9.6 mg/dL (8.5-10.1); CREATININE 0.69 mg/dL (0.70-1.30); GLUCOSE 99 mg/dL (65-99); SODIUM 133 mmol/L (136-145); eGFR NON BLACK RACES > 60 (>60)
[2024-04-10 07:00] LABS: POTASSIUM 2.7 mmol/L (3.5-5.1)
[2024-04-10] MEDS: DIPRIVAN VIAL 20 ML ONE (07:36)
[2024-04-10] MEDS: EPHEDRINE SULFATE INJ ONE (07:47)
[2024-04-10] MEDS ORDERED: CONSULT PHARMACY - POTASSIUM & MAGNESIUM XX SCH (08:00)
[2024-04-10] MEDS ORDERED: D5 1/2 NS 1,000 ML 1,000 ML IV SCH (08:00)
[2024-04-10] MEDS ORDERED: ATENOLOL CHLORTHALIDONE PO SCH (09:00)
[2024-04-10] MEDS ORDERED: MAGNESIUM 200 MG PO SCH (09:00)
[2024-04-10] MEDS: K-DUR TAB 20 MEQ PO SCH (09:29)
[2024-04-10] MEDS: CELEXA PO SCH (09:29)
[2024-04-10] MEDS: PULMICORT NEB TX 0.5 MG NEB SCH (09:30)
[2024-04-10] MEDS: PROTONIX INJ 40 MG VIAL IVP SCH (09:33)
[2024-04-10] MEDS: D5 1/2 NS + KCL 20 MEQ/L 1,000 ML with MAGNESIUM SULFATE 50% INJ VIAL 1 G IV SCH (09:45)
[2024-04-10] MEDS: TENORMIN PO SCH (09:48)
[2024-04-10] MEDS: CHLORTHALIDONE PO SCH (09:49)
[2024-04-10] MEDS: CREON PO SCH (10:03)
[2024-04-10] MEDS: BENTYL CAP 10 MG PO SCH (11:21)
--- NOTE | 2024-04-10 11:24 | DR.CONSULT ---
CONSULT Consultation for Day of: Date: 04/10/24 Chief Complaint Chief Complaint: abdominal pain, N/V and dark stool Allergies Allergies Allergy/AdvReac Type Severity Reaction Status Date / Time No Known Drug Allergies Allergy Unknown Verified 04/06/24 11:57 History of Present Illness History of Present Illness: Mr Benson is a 53y/o male with a PMH of chronic pancreatitis, GERD, Duodenal ulcer, HTN, COPD and chronic pain syndrome presented with worsening abdominal pain, N/V and black stools. He sees Dr Grady outpatient and was recently seen for chronic pancreatitis. He had ERCP done recently with unsuccessful placement of stent in the pancreatic duct. He presented with worsening symptoms for the past few days. In the ER, his potassium was 2.6, Hgb 16.5, CTAP showed severe duodenitis and chronic pancreatitis. FOBT +. He was admitted for EGD and further management. He underwent EGD this morning, no active bleeding noted, duodenal ulcer and gastritis present. Medicine consulted for management. He is currently feeling better, abdominal pain is controlled. He was started on full-liquids. Labs/imaging reviewed -WBC 11.8 Hgb 14.0 K:2.7 Ma.4 Lipase:383 Plan: follow recommendations as per surgery. Replace K and Mag, continue hydration. Continue IV protonix and carafate. Continue IV Zosyn. Continue pain control. Monitor for any bleeding. Diet as per surgery. Continue home medications. Monitor AM labs/imaging. Past Medical History Past Medical History: Anxiety, COPD, Depression, GERD and Hypertension Past Surgical History Surgical History: Cholecystectomy Family History Family Medical History: Diabetes Mellitus, Cancer, [place], Coronary Artery Disease and Hypertension Social History Does patient currently use any type of tobacco product: Yes Have you used tobacco products in the last 12 months: Yes Type of Tobacco Use: Cigarettes How many years tobacco product used: 14 Does any household member use tobacco: No Alcohol Use: None Drug Use: None Medications Home Medications: No Known Drug Allergies Allergy (Unknown, Verified 04/06/24 11:57) CONTINUE taking the following medications albuterol sulfate 90 mcg/actuation aerosol inhaler 2 inh inhalation TID PRN 04/09/24 [History] Review of Systems Constitutional: Weakness Eyes: No Symptoms Reported Respiratory: No Symptoms Reported Cardiovascular: No Symptoms Reported Gastrointestinal: Nausea, Vomiting, Abdominal Pain and Hematochezia Genitourinary: No Symptoms Reported Musculoskeletal: No Symptoms Reported Skin: No Symptoms Reported Neurological: No Symptoms Reported Physical Exam Vital Signs: Vital Signs Temperature 97.9 F Pulse Rate [Apical] 72 Respiratory Rate 20 Respiratory Rate 20 Respiratory Rate 20 Respiratory Rate 19 Blood Pressure [Right Arm] 116/66 O2 Sat by Pulse Oximetry 98 Oriented: Normal Eyes: Normal Throat: Normal Respiratory: Clear Throughout Cardiovascular: Normal Auscultation: Bowel Sounds: Normal Tenderness: Epigastric, Periumbilical and Mild Skin: Decreased Turgur Musculoskeletal: Normal Psychiatric: Normal Mood Description: Calm Affect: Normal Speech Pattern: Clear and Appropriate Plan (1) Acute hypokalemia: Status: Acute (2) Acute duodenitis: Status: Acute (3) Dehydration: Status: Acute (4) Electrolyte abnormality: Status: Acute (5) Chronic pancreatitis: Status: Acute Qualifiers: Pancreatitis type: unspecified pancreatitis type Qualified Code(s): K86.1 - Other chronic pancreatitis (6) Chronic nausea: Status: Acute (7) Duodenal ulcer: Status: Acute
[2024-04-10] MEDS ORDERED: CREON PO SCH (12:00)
[2024-04-10] MEDS ORDERED: NS + KCL 40 MEQ/L 1,000 ML IV SCH (12:00)
[2024-04-10] MEDS: NICOTINE PATCH TD SCH (12:31)
[2024-04-10] MEDS: PATIENT'S HOME MEDICATION PO SCH (12:48)
[2024-04-10] MEDS: NS + KCL 40 MEQ/L 1,000 ML with MAGNESIUM SULFATE 50% INJ VIAL 2 G IV SCH (14:18)
[2024-04-10] MEDS: NS 250 ML IV 250 ML IV ONE (14:24)
[2024-04-11 06:15] VITALS: RESP 16
[2024-04-11 06:35] LABS: BASOPHILS % (AUTO) 0.5 % (0.2-1.0); EOSINOPHILS # (AUTO) 0.6 x10^3/uL (0.0-0.2); EOSINOPHILS % (AUTO) 8.1 % (0.9-2.9); HEMATOCRIT 35.8 % (42.0-54.0); HEMOGLOBIN 12.2 g/dL (13.5-18.0); LYMPHOCYTES # (AUTO) 1.9 X10^3/uL (1.3-2.9); LYMPHOCYTES % (AUTO) 26.3 % (21.0-51.0); MEAN CORPUSCULAR HEMOGLOBIN 34.7 pg (27.0-34.0); MEAN CORPUSCULAR HGB CONC 34.2 g/dL (33.0-35.0); MEAN CORPUSCULAR VOLUME 101.5 fL (80.0-100.0); MEAN PLATELET VOLUME 7.4 fL (7.4-11.0); MONOCYTES # (AUTO) 0.8 x10^3/uL (0.3-0.8); MONOCYTES % (AUTO) 11.1 % (0.0-13.0); NEUTROPHILS # (AUTO) 3.9 x10^3/uL (2.2-4.8); PLATELET COUNT 225 X10^3/uL (150.0-450.0); RED BLOOD COUNT 3.53 X10^6/uL (4.7-6.0); RED CELL DISTRIBUTION WIDTH 14.1 % (11.6-16.5); WHITE BLOOD COUNT 7.3 X10^3/uL (3.6-10.0)
[2024-04-11 06:51] LABS: ALANINE AMINOTRANSFERASE 12 Units/L (12-78); ALKALINE PHOSPHATASE 56 Units/L (46-116); ASPARTATE AMINO TRANSFERASE 20 Units/L (15-37); BLOOD UREA NITROGEN 10 mg/dL (7-18); CALCIUM 8.5 mg/dL (8.5-10.1); CARBON DIOXIDE 30.4 mmol/L (21-32); CHLORIDE 101 mmol/L (98-107); COR CA(FOR HYPOALB) 9.3 mg/dL (8.5-10.1); CREATININE 0.73 mg/dL (0.70-1.30); GLUCOSE 89 mg/dL (65-99); POTASSIUM 3.8 mmol/L (3.5-5.1); SODIUM 136 mmol/L (136-145); TOTAL PROTEIN 6.1 g/dL (6.4-8.2); eGFR NON BLACK RACES > 60 (>60)
--- NOTE | 2024-04-11 09:30 | PCM.PROG ---
Progress Note Progress Note for Day of Date of Exam: 04/11/24 Subjective Subjective: Patient seen at bedside, no acute events overnight. He is feeling better. His abdominal pain has improved. Denies any bleeding. His potassium and magnesium levels have improved. He was able to tolerate full liquids yesterday and did have regular diet this morning. Dr Grady saw him today, patient stable for discharge. Labs/imaging reviewed -Hgb 12.2 K:3.8 Ma.0 Plan: patient doing well, tolerating PO intake. Discharge home with PO antibiotics x 1 week. Discussed to take all medications as prescribed. He will f/u with PCP, Dr Grady and GI as scheduled. Patient given diet instructions regarding pancreatitis diet. Past Medical Family Social History Allergies: Allergies No Known Drug Allergies Allergy (Unknown, Verified 04/06/24 11:57) Onset Date: 12/04/2021 Vital Signs and I&O's Vital Signs: Vital Signs Temperature 97.4 F Pulse Rate [Apical] 63 Respiratory Rate 16 Respiratory Rate 16 Respiratory Rate 18 Respiratory Rate 20 Blood Pressure [Right Arm] 99/58 O2 Sat by Pulse Oximetry 99 Intake and Output: Intake & Output 04/08/24 04/09/24 04/10/24 04/11/24 23:59 23:59 23:59 23:59 Intake Total 2814 / 2814 1364 / 1364 Output Total 0 / 0 Balance 2814 / 2814 1364 / 1364 Physical Exam Oriented: Normal Eyes: Normal Throat: Normal Cardiovascular: Normal Auscultation: Bowel Sounds: Normal Tenderness: Periumbilical and Mild Skin: Decreased [place] Musculoskeletal: Normal Psychiatric: Normal Mood Description: Calm Affect: Normal Speech Pattern: Clear and Appropriate Laboratory and Diagnostics 04/11/24 05:32 04/11/24 05:32 Labs: Laboratory WBC 7.3 X10^3/uL (3.6-10.0) 04/11/24 05:32 RBC 3.53 X10^6/uL (4.7-6.0) L 04/11/24 05:32 Hgb 12.2 g/dL (13.5-18.0) L 04/11/24 05:32 Hct 35.8 % (42.0-54.0) L 04/11/24 05:32 MCV 101.5 fL (80.0-100.0) H 04/11/24 05:32 MCH 34.7 pg (27.0-34.0) H 04/11/24 05:32 MCHC 34.2 g/dL (33.0-35.0) 04/11/24 05:32 RDW 14.1 % (11.6-16.5) 04/11/24 05:32 Plt Count 225 X10^3/uL (150.0-450.0) 04/11/24 05:32 MPV 7.4 fL (7.4-11.0) 04/11/24 05:32 Neut % (Auto) 54.0 % (42.0-75.0) 04/11/24 05:32 Lymph % (Auto) 26.3 % (21.0-51.0) 04/11/24 05:32 [place] % (Auto) 11.1 % (0.0-13.0) 04/11/24 05:32 Eos % (Auto) 8.1 % (0.9-2.9) H 04/11/24 05:32 Baso % (Auto) 0.5 % (0.2-1.0) 04/11/24 05:32 Neut # (Auto) 3.9 x10^3/uL (2.2-4.8) 04/11/24 05:32 Lymph # (Auto) 1.9 X10^3/uL (1.3-2.9) 04/11/24 05:32 [place] # (Auto) 0.8 x10^3/uL (0.3-0.8) 04/11/24 05:32 Eos # (Auto) 0.6 x10^3/uL (0.0-0.2) H 04/11/24 05:32 Baso # (Auto) 0.0 X10^3/uL (0.0-0.1) 04/11/24 05:32 Absolute Nucleated RBC 0.3 /100WBC 04/11/24 05:32 Sodium 136 mmol/L (136-145) 04/11/24 05:32 Corrected Sodium TNP 04/11/24 05:32 Potassium 3.8 mmol/L (3.5-5.1) 04/11/24 05:32 Chloride 101 mmol/L (98-107) 04/11/24 05:32 Carbon Dioxide 30.4 mmol/L (21-32) 04/11/24 05:32 BUN 10 mg/dL (7-18) 04/11/24 05:32 Creatinine 0.73 mg/dL (0.70-1.30) 04/11/24 05:32 Est GFR (MDRD) Af Amer > 60 (>60) 04/11/24 05:32 Est GFR (MDRD) Non-Af > 60 (>60) 04/11/24 05:32 Glucose 89 mg/dL (65-99) 04/11/24 05:32 Lactic Acid 1.5 mmol/L (0.4-2.0) 04/09/24 19:25 Calcium 8.5 mg/dL (8.5-10.1) 04/11/24 05:32 Corrected Calcium 9.3 mg/dL (8.5-10.1) 04/11/24 05:32 Magnesium 2.0 mg/dL (2.0-2.9) 04/11/24 05:32 Total Bilirubin 0.60 mg/dL (0.2-1.0) 04/11/24 05:32 AST 20 Units/L (15-37) 04/11/24 05:32 ALT 12 Units/L (12-78) 04/11/24 05:32 Alkaline Phosphatase 56 Units/L (46-116) 04/11/24 05:32 C-Reactive Protein 1.70 mg/L (0-3.0) 04/09/24 19:25 Total Protein 6.1 g/dL (6.4-8.2) L 04/11/24 05:32 Albumin 3.0 g/dL (3.4-5.0) L 04/11/24 05:32 Globulin 3.1 g/dL (2.5-4.5) 04/11/24 05:32 Albumin/Globulin Ratio 1.0 Ratio (1.1-2.1) L 04/11/24 05:32 Amylase 456 Units/L (25-115) H 04/09/24 19:25 Lipase 383 Units/L (16-77) H 04/09/24 19:25 Specimen Type Clean catch urine 04/09/24 23:02 Urine Color Yellow (YELLOW) 04/09/24 23:02 Urine Appearance Clear (CLEAR) 04/09/24 23:02 Urine pH 7.0 (5.0 - 8.0) 04/09/24 23:02 Ur Specific [place] 1.010 (1.000-1.030) 04/09/24 23:02 Urine Protein 2+ (NEGATIVE) 04/09/24 23:02 Urine Glucose (UA) Negative (NEGATIVE) 04/09/24 23: Urine Ketones Negative (NEGATIVE) 04/09/24 23: Urine Blood 3+ (NEGATIVE) 04/09/24 23: Urine Nitrite Negative (NEGATIVE) 04/09/24 23: Urine Bilirubin Negative (NEGATIVE) 04/09/24 23: Urine Urobilinogen 1+ (NORMAL) 04/09/24 23: Ur Leukocyte Esterase Negative (NEGATIVE) 04/09/24 23:02 Urine RBC 0-2 /HPF (0-3) 04/09/24 23:02 Urine WBC 0-2 /HPF (0-5) 04/09/24 23:02 Ur Squamous Epith Cells Rare /HPF (NEGATIVE) 04/09/24 23:02 Urine Bacteria Negative /HPF (NEGATIVE) 04/09/24 23:02 Ur Culture Indicated? No/not indicated 04/09/24 23:02 Plan (1) Acute hypokalemia: Status: Acute (2) Acute duodenitis: Status: Acute (3) Dehydration: Status: Acute (4) Electrolyte abnormality: Status: Acute (5) Chronic pancreatitis: Status: Acute Qualifiers: Pancreatitis type: unspecified pancreatitis type Qualified Code(s): K86.1 - Other chronic pancreatitis (6) Chronic nausea: Status: Acute (7) Duodenal ulcer: Status: Acute
[2024-04-11] MEDS: MAG-OX TAB PO SCH (09:39)
[2024-04-11 10:22] VITALS: BP 96/56; PULSE 69; TEMP 97.8; O2SAT 100
== END 2024-04-11 11:00 | disposition home or self-care (01) | DRG 438 ==
LOC: ER 15:19 → MED/SURG 23:37
PROVIDERS: ADMIT Surgery; ATTEND Surgery
DX: E83.42 Hypomagnesemia; E87.6 Hypokalemia; I10 Essential (primary) hypertension; E87.1 Hypo-osmolality and hyponatremia; J44.9 Chronic obstructive pulmonary disease, unspecified; K29.80 Duodenitis without bleeding; R11.2 Nausea with vomiting, unspecified; E86.0 Dehydration; K21.9 Gastro-esophageal reflux disease without esophagitis; K86.1 Other chronic pancreatitis; K26.0 Acute duodenal ulcer with hemorrhage; R10.84 Generalized abdominal pain; K85.80 Other acute pancreatitis without necrosis or infection; F41.8 Other specified anxiety disorders; R26.89 Other abnormalities of gait and mobility

== ENCOUNTER 2024-04-16 13:58 | Inpatient (IN) ==
[2024-04-16] MEDS: REGLAN INJ 10 MG VIAL IVP ONE (14:57)
[2024-04-16] MEDS: NS 1,000 ML IV 1,000 ML IV ONE (14:57)
--- NOTE | 2024-04-16 15:29 | DR.N/VMALE ---
HPI Time Seen Time Seen by Provider: 04/16/24 14:28 Primary Care Physician Primary Care Physician: Nii Complaints Chief Complaint Doctors Comments: Patient was d/c on Wednesday04/11/24. Patient has been taking his ciprofloxacin and flagyl until 04/15/24 when he began to have intractable vomiting and increased abdl pain.Patient states he had a black stool yesterday. Patient states that he feels weak.He denies: fever, hematemesis, back pain, headache, sob, chest pain. Chief Complaint:: was admitted to the hospital last weekend was d/c wednesday and for the last 24 hours he has not been able to keep his meds down due to the vo miting. was dx with pancritis COVID-19 Coronavirus risk:travel/contact w/high risk person: No Has patient experienced Coronavirus symptoms: No Source History Provided: Patient and Family Member Mode of Arrival Mode of Arrival: Ambulatory Timing Onset of Chief Complaint: 04/09/24 PMH PMH Past Medical History: Yes Past Medical History: Anxiety, COPD, Depression, GERD and Hypertension Past Surgical History: Yes Surgical History: Cholecystectomy Family History History of Family Medical Conditions: Yes Family Medical History: Diabetes Mellitus, Cancer, PR, Coronary Artery Disease and Hypertension Social History Does patient currently use any type of tobacco product: Yes Have you used tobacco products in the last 12 months: Yes Type of Tobacco Use: Cigarettes Does any household member use tobacco: No Alcohol Use: None Do you use any recreational Drugs:: No Lives With: Family Lives Where: Home Travel Risk Coronavirus risk:travel/contact w/high risk person: No Has patient experienced Coronavirus symptoms: No Infectious screening In the last 2 months have you had wt loss of >10#?: NO Have you had fever, night sweats or hemotysis?: No Have you traveled outside the country in the last 6 months?: No Isolation: Standard ROS Review of Systems Constitutional: No Symptoms Reported Eyes: No Symptoms Reported ENTM: No Symptoms Reported Respiratoy: No Symptoms Reported Cardiovascular: No Symptoms Reported Gastrointestinal/Abdominal: Abdominal Pain (BLQ), Nausea and Vomiting (multiple episodes) Genitourinary: No Symptoms Reported Neurological: Weakness Musculoskeletal: No Symptoms Reported Integumentary: No Symptoms Reported Hematologic/Lymphatic: No Symptoms Reported Endocrine: No Symptoms Reported Psychiatric: No Symptoms Reported All Other Systems: Reviewed and Negative PE Vital Signs Vitals: Vital Signs Temperature 97.5 F Pulse Rate 91 Pulse Rate 79 Pulse Rate 116 Respiratory Rate 18 Respiratory Rate 16 Respiratory Rate 18 Respiratory Rate 18 Blood Pressure 109/71 Blood Pressure 108/70 Blood Pressure 129/82 O2 Sat by Pulse Oximetry 97 O2 Sat by Pulse Oximetry 98 O2 Sat by Pulse Oximetry 97 General Limitations: No Limitations General Appearance: Alert and In No Apparent Distress Head Head Exam: Normal Inspection Eyes Eye exam: Normal Appearance ENT ENT Exam: Normal Exam Neck Neck Exam: Normal Inspection Chest Chest Inspection: Normal Inspection Respiratory Respiratory Exam: Normal Lung Sounds Bilat Respiratory Exam: Bilateral: Clear to Auscultation Cardiovascular Cardiovascular Exam: Regular Rate and Normal Rhythm Abdominal Exam Abdominal Exam: Soft, Tenderness, Guarding and Hypoactive Bowel Sounds Abdominal Tenderness: RLQ and LLQ Rectal Rectal Exam: Deferred Exam: Male: Deferred Extremities Extremities Exam: Normal Inspection Back Back Exam: Normal Inspection Neurologic Neurological Exam: Alert and Oriented X3 Psychiatric Psychiatric Exam: Normal Affect and Normal Mood Skin Skin Exam: Warm, Dry, Intact and Normal Color MDM Differential Diagnosis Differential Diagnosis: Considerations may Include:: Pancreatitis Differential Diagnosis Comment: electrolyte disorder,Anemia COURSE Treatment Treatment: Patient was brought to an exam room.Iv access was initiated and labs were ordered.Patient 's labs were reviewed. His wbc is 11.9 and his amylase 268 and lipase 177 are elevated.Patient received dialudid 1 ng iv for pain and reglan 10mg iv for nausea.Patient also received protonix 80mg iv because he had a black stool. Discussed case with Dr Bhatti. Dr Bhatti will admit patient to his service for further evaluation. [facility] Labs Reviewed Laboratory Results Reviewed?: Yes 04/16/24 14:35 04/16/24 14:35 Laboratory: WBC 11.9 X10^3/uL (3.6-10.0) H 04/16/24 14:35 RBC 4.81 X10^6/uL (4.7-6.0) 04/16/24 14:35 Hgb 16.6 g/dL (13.5-18.0) 04/16/24 14:35 Hct 48.9 % (42.0-54.0) 04/16/24 14:35 MCV 101.6 fL (80.0-100.0) H 04/16/24 14:35 MCH 34.5 pg (27.0-34.0) H 04/16/24 14:35 MCHC 34.0 g/dL (33.0-35.0) 04/16/24 14:35 RDW 14.6 % (11.6-16.5) 04/16/24 14:35 Plt Count 387 X10^3/uL (150.0-450.0) 04/16/24 14:35 MPV 7.4 fL (7.4-11.0) 04/16/24 14:35 Neut % (Auto) 76.6 % (42.0-75.0) H 04/16/24 14:35 Lymph % (Auto) 15.3 % (21.0-51.0) L 04/16/24 14:35 [place] % (Auto) 7.3 % (0.0-13.0) 04/16/24 14:35 Eos % (Auto) 0.1 % (0.9-2.9) L 04/16/24 14:35 Baso % (Auto) 0.7 % (0.2-1.0) 04/16/24 14:35 Neut # (Auto) 9.1 x10^3/uL (2.2-4.8) H 04/16/24 14:35 Lymph # (Auto) 1.8 X10^3/uL (1.3-2.9) 04/16/24 14:35 [place] # (Auto) 0.9 x10^3/uL (0.3-0.8) H 04/16/24 14:35 Eos # (Auto) 0.0 x10^3/uL (0.0-0.2) 04/16/24 14:35 Baso # (Auto) 0.1 X10^3/uL (0.0-0.1) 04/16/24 14:35 Absolute Nucleated RBC 0.2 /100WBC 04/16/24 14:35 Sodium 133 mmol/L (136-145) L 04/16/24 14:35 Corrected Sodium 134 mmol/L (136-145) L 04/16/24 14:35 Potassium 3.9 mmol/L (3.5-5.1) 04/16/24 14:35 Chloride 92 mmol/L (98-107) L 04/16/24 14:35 Carbon Dioxide 33.5 mmol/L (21-32) H 04/16/24 14:35 BUN 16 mg/dL (7-18) 04/16/24 14:35 Creatinine 1.15 mg/dL (0.70-1.30) 04/16/24 14:35 Est GFR (MDRD) Af Amer > 60 (>60) 04/16/24 14:35 Est GFR (MDRD) Non-Af > 60 (>60) 04/16/24 14:35 Glucose 127 mg/dL (65-99) H 04/16/24 14:35 Lactic Acid 2.6 mmol/L (0.4-2.0) H 04/16/24 14:35 Calcium 10.5 mg/dL (8.5-10.1) H 04/16/24 14:35 Corrected Calcium TNP 04/16/24 14:35 Total Bilirubin 0.40 mg/dL (0.2-1.0) 04/16/24 14:35 AST 22 Units/L (15-37) 04/16/24 14:35 ALT 21 Units/L (12-78) 04/16/24 14:35 Alkaline Phosphatase 74 Units/L (46-116) 04/16/24 14:35 C-Reactive Protein 4.30 mg/L (0-3.0) H 04/16/24 14:35 Total Protein 8.9 g/dL (6.4-8.2) H 04/16/24 14:35 Albumin 4.3 g/dL (3.4-5.0) 04/16/24 14:35 Globulin 4.6 g/dL (2.5-4.5) H 04/16/24 14:35 Albumin/Globulin Ratio 0.9 Ratio (1.1-2.1) L 04/16/24 14:35 Amylase 268 Units/L (25-115) H 04/16/24 14:35 Lipase 177 Units/L (16-77) H 04/16/24 14:35 Specimen Type Clean catch urine 04/16/24 15:39 Urine Color [place] (YELLOW) 04/16/24 15:39 Urine Appearance Clear (CLEAR) 04/16/24 15:39 Urine pH 7.0 (5.0 - 8.0) 04/16/24 15:39 Ur Specific [place] 1.015 (1.000-1.030) 04/16/24 15:39 Urine Protein 3+ (NEGATIVE) 04/16/24 15:39 Urine Glucose (UA) Negative (NEGATIVE) 04/16/24 15:39 Urine Ketones Negative (NEGATIVE) 04/16/24 15:39 Urine Blood 3+ (NEGATIVE) 04/16/24 15:39 Urine Nitrite Negative (NEGATIVE) 04/16/24 15:39 Urine Bilirubin Negative (NEGATIVE) 04/16/24 15:39 Urine Urobilinogen Normal (NORMAL) 04/16/24 15:39 Ur Leukocyte Esterase 1+ (NEGATIVE) 04/16/24 15:39 Urine RBC 5-10 /HPF (0-3) A 04/16/24 15:39 Urine WBC 0-2 /HPF (0-5) 04/16/24 15:39 Ur Squamous Epith Cells Rare /HPF (NEGATIVE) 04/16/24 15:39 Urine Bacteria Trace /HPF (NEGATIVE) 04/16/24 15:39 Hyaline Casts Rare /LPF (NEGATIVE) 04/16/24 15:39 Urine Mucus Many /HPF (NEGATIVE) 04/16/24 15:39 Ur Culture Indicated? No/not indicated 04/16/24 15:39 Opioid Opioid Risk Tool Age (Thang box if 16-45): No History of Preadolescent Sexual Abuse: No Total: 0 Total Score Risk Category: Low Risk Copyright: Jose Antonio CLAYTON predicting aberrant behaviors Discharge Plan Diagnosis Discharge Problem: Acute pancreatitis, Intractable nausea and vomiting Discharge Plan Patient Disposition: 09 ADMITTED INPATIENT Condition: Stable Prescriptions: No Action pantoprazole [Protonix] 40 mg tablet,delayed release (DR/EC) 40 mg PO BID Qty: 60 2RF sucralfate [Carafate] 1 gram tablet 1 g PO TID Qty: 90 2RF dicyclomine 10 mg capsule 10 mg PO QID PRN (Reason: abdominal pain) Qty: 120 1RF gabapentin 300 mg capsule 300 mg PO BID Qty: 60 1RF atenolol-chlorthalidone 50-25 mg Tablet 1 tab PO DAILY citalopram 20 mg Tablet 20 mg PO DAILY fluticasone propion-salmeterol [Advair Diskus] 250-50 mcg/dose Blister With Device 1 inh INHALATION BID hydrocodone-acetaminophen 10-325 mg Tablet 1 tab PO Q4-6H PRN fentanyl 25 mcg/hr patch 72 hour 1 patch transdermal Q3D Creon 24,000-76,000 -120,000 unit Capsule,Delayed Release(Dr/Ec) 2 cap PO TID Rx Instructions: administer with meals and/or snacks ondansetron 4 mg tablet,disintegrating 4 mg PO Q8H MDD 3 PRN (Reason: nausea and vomiting) Qty: 20 0RF albuterol sulfate 90 mcg/actuation Hfa Aerosol Inhaler 2 inh INHALATION TID PRN potassium chloride [Klor-Con M20] 20 mEq Tablet,Er Particles/Crystals 20 meq PO DAILY 7 Days Qty: 7 0RF magnesium oxide 400 mg (241.3 mg magnesium) Tablet 400 mg PO QDAY 7 Days Qty: 7 0RF ciprofloxacin HCl 500 mg tablet 500 mg PO BID 7 Days Qty: 14 0RF metronidazole 500 mg tablet 500 mg PO TID 7 Days Qty: 21 0RF Health Concerns: Post Hospitalization: new medications and changes needed to prevent readmission or further decline. Pt educated and given instructions on all concerns. Plan of Treatment: Continue with present treatment and follow up plan. Pt is to keep follow up appointment as instructed and take medications as ordered. Orders to Discharge Patient Discharge Orders: Discharge (Routine); Ordered 04/16/24 Ordered By: Iesha Randhawa Transfer (Routine); Ordered 04/16/24 Ordered By: Iesah Randhawa Follow ups/Referrals Follow ups/Referrals: DANIELLE YOUNGBLOOD [Primary Care Provider] - 3 days Instructions Instructions: Sinus Infection, Adult, [id number] Activity Restrictions/Additional Instructions: 1) Please follow up with primary care physician for re-evaluation Stand Alone Forms: Post Hospital Follow Up Care
[2024-04-16 15:45] LABS: BILIRUBIN,URINE NEGATIVE (NEGATIVE); BLOOD/HEMOGLOBIN,URINE 3+ (NEGATIVE); GLUCOSE, URINE NEGATIVE (NEGATIVE); KETONES,URINE NEGATIVE (NEGATIVE); LEUKOCYTE ESTERASE ,URINE 1+ (NEGATIVE); NITRITES,URINE NEGATIVE (NEGATIVE); PROTEIN,URINE 3+ (NEGATIVE); UROBILINOGEN,URINE NORMAL (NORMAL)
[2024-04-16 15:53] LABS: APPEARANCE,URINE CLEAR (CLEAR); COLOR,URINE AMBER (YELLOW)
[2024-04-16 15:54] LABS: BACTERIA,URINE TRACE /HPF (NEGATIVE); HYALINE CASTS, URINE RARE /LPF (NEGATIVE); SQUAMOUS EPITHELIAL CELL,UR RARE /HPF (NEGATIVE)
[2024-04-16 16:21] LABS: WHITE BLOOD COUNT 11.9 X10^3/uL (3.6-10.0)
[2024-04-16 16:24] LABS: BASOPHILS # (AUTO) 0.1 X10^3/uL (0.0-0.1); BASOPHILS % (AUTO) 0.7 % (0.2-1.0); EOSINOPHILS % (AUTO) 0.1 % (0.9-2.9); HEMATOCRIT 48.9 % (42.0-54.0); HEMOGLOBIN 16.6 g/dL (13.5-18.0); LYMPHOCYTES # (AUTO) 1.8 X10^3/uL (1.3-2.9); LYMPHOCYTES % (AUTO) 15.3 % (21.0-51.0); MEAN CORPUSCULAR HEMOGLOBIN 34.5 pg (27.0-34.0); MEAN CORPUSCULAR VOLUME 101.6 fL (80.0-100.0); MEAN PLATELET VOLUME 7.4 fL (7.4-11.0); MONOCYTES # (AUTO) 0.9 x10^3/uL (0.3-0.8); MONOCYTES % (AUTO) 7.3 % (0.0-13.0); NEUTROPHILS # (AUTO) 9.1 x10^3/uL (2.2-4.8); NEUTROPHILS % (AUTO) 76.6 % (42.0-75.0); PLATELET COUNT 387 X10^3/uL (150.0-450.0); RED BLOOD COUNT 4.81 X10^6/uL (4.7-6.0); RED CELL DISTRIBUTION WIDTH 14.6 % (11.6-16.5)
[2024-04-16] MEDS: PROTONIX INJ 40 MG VIAL IVP ONE (16:26)
[2024-04-16] MEDS: DILAUDID INJ IVP ONE (16:27)
[2024-04-16 16:32] LABS: ALANINE AMINOTRANSFERASE 21 Units/L (12-78); ALBUMIN 4.3 g/dL (3.4-5.0); ALKALINE PHOSPHATASE 74 Units/L (46-116); ASPARTATE AMINO TRANSFERASE 22 Units/L (15-37); BLOOD UREA NITROGEN 16 mg/dL (7-18); CALCIUM 10.5 mg/dL (8.5-10.1); CARBON DIOXIDE 33.5 mmol/L (21-32); CHLORIDE 92 mmol/L (98-107); COR NA(FOR HYPERGLY) 134 mmol/L (136-145); CREATININE 1.15 mg/dL (0.70-1.30); GLUCOSE 127 mg/dL (65-99); POTASSIUM 3.9 mmol/L (3.5-5.1); SODIUM 133 mmol/L (136-145); TOTAL PROTEIN 8.9 g/dL (6.4-8.2); eGFR NON BLACK RACES > 60 (>60)
[2024-04-16] MEDS: FLAGYL IV PREMIX 500 MG BAG 500 MG/100 ML BAG IV ONE (17:10)
[2024-04-16] MEDS: NICOTINE PATCH TD ONE (17:29)
[2024-04-16 17:55] LABS: AMYLASE 268 Units/L (25-115); LIPASE 177 Units/L (16-77)
[2024-04-16 19:07] VITALS: BMI 15.6
[2024-04-16] MEDS ORDERED: PROVENTIL NEB TX 0.083% 2.5MG/ 3ML NEB PRN (19:17)
[2024-04-16] MEDS: NS 1,000 ML IV 1,000 ML IV SCH (19:56)
[2024-04-16] MEDS: CIPRO IV 400 MG PREMIX* 400 MG/200 ML IV.SOLN. IV SCH (20:36)
[2024-04-16] MEDS: NEURONTIN CAP 300 MG PO SCH (20:37)
[2024-04-16] MEDS: DILAUDID INJ IVP PRN (20:39)
[2024-04-16] MEDS: REGLAN INJ 10 MG VIAL IVP PRN (21:45)
[2024-04-16] MEDS: FLAGYL IV PREMIX 500 MG BAG 500 MG/100 ML BAG IV SCH (22:46)
[2024-04-17 05:26] LABS: ALANINE AMINOTRANSFERASE 22 Units/L (12-78); ALBUMIN 3.4 g/dL (3.4-5.0); ALKALINE PHOSPHATASE 56 Units/L (46-116); AMYLASE 280 Units/L (25-115); ASPARTATE AMINO TRANSFERASE 23 Units/L (15-37); BLOOD UREA NITROGEN 14 mg/dL (7-18); CARBON DIOXIDE 34.2 mmol/L (21-32); CHLORIDE 98 mmol/L (98-107); GLUCOSE 103 mg/dL (65-99); POTASSIUM 3.3 mmol/L (3.5-5.1); SODIUM 135 mmol/L (136-145); TOTAL PROTEIN 7.1 g/dL (6.4-8.2); eGFR NON BLACK RACES > 60 (>60)
[2024-04-17 05:32] LABS: BASOPHILS % (AUTO) 0.2 % (0.2-1.0); EOSINOPHILS # (AUTO) 0.2 x10^3/uL (0.0-0.2); EOSINOPHILS % (AUTO) 1.9 % (0.9-2.9); HEMATOCRIT 41.7 % (42.0-54.0); LYMPHOCYTES # (AUTO) 2.2 X10^3/uL (1.3-2.9); LYMPHOCYTES % (AUTO) 25.4 % (21.0-51.0); MEAN CORPUSCULAR HEMOGLOBIN 34.4 pg (27.0-34.0); MEAN CORPUSCULAR HGB CONC 33.8 g/dL (33.0-35.0); MEAN CORPUSCULAR VOLUME 101.9 fL (80.0-100.0); MONOCYTES # (AUTO) 0.9 x10^3/uL (0.3-0.8); MONOCYTES % (AUTO) 10.1 % (0.0-13.0); NEUTROPHILS # (AUTO) 5.3 x10^3/uL (2.2-4.8); NEUTROPHILS % (AUTO) 62.4 % (42.0-75.0); PLATELET COUNT 278 X10^3/uL (150.0-450.0); RED BLOOD COUNT 4.09 X10^6/uL (4.7-6.0); RED CELL DISTRIBUTION WIDTH 14.3 % (11.6-16.5); WHITE BLOOD COUNT 8.5 X10^3/uL (3.6-10.0)
[2024-04-17 05:34] LABS: HEMOGLOBIN 14.1 g/dL (13.5-18.0)
[2024-04-17 05:40] LABS: LIPASE 410 Units/L (16-77)
[2024-04-17] MEDS ORDERED: CONSULT PHARMACY - POTASSIUM & MAGNESIUM XX SCH (06:00)
[2024-04-17] MEDS: PROTONIX INJ 40 MG VIAL IVP SCH (08:36)
[2024-04-17] MEDS: ZOFRAN INJ 4 MG VIAL IVP PRN (08:36)
[2024-04-17] MEDS: MAG-OX TAB PO SCH (08:37)
[2024-04-17] MEDS: K-DUR TAB 20 MEQ PO SCH ×2 (08:37→10:36)
[2024-04-17] MEDS: TENORMIN PO SCH (08:37)
[2024-04-17] MEDS: CELEXA PO SCH (08:37)
[2024-04-17] MEDS: CHLORTHALIDONE PO SCH (08:37)
[2024-04-17] MEDS ORDERED: ATENOLOL CHLORTHALIDONE PO SCH (09:00)
[2024-04-17] MEDS ORDERED: PROTONIX INJ 40 MG VIAL IVP SCH (09:00)
[2024-04-17] MEDS: D5 1/2 NS 1,000 ML 1,000 ML IV SCH (09:23)
[2024-04-17] MEDS: OMNIPAQUE 350 mg/mL 100 mL BTL 100 ML ONE (11:44)
--- NOTE | 2024-04-17 11:56 | CT ---
EXAM:ABDCMEN/PELVIS WITH CONHISTORY:PANCREATITIS, NVD; GB, KNEE SX, SHOULDER SX, WRISTCOMPARISON:None available.TECHNIQUE:Multiple axial images of the abdomen and pelvis were obtained from the lung bases to the pubic symphysis after the administration of IV contrast. Dose reduction techniques including Automated Exposure Control (AEC) and adjustment of mA and kV were utilized.FINDINGS:The visualized portions of the lung bases are unremarkable. Clips noted within the gallbladder fossa consistent with prior cholecystectomy. Common bile duct and common hepatic duct demonstrate prominence with mild intrahepatic biliary ductal dilatation that appear stable. Chronic dilatation of the pancreatic duct with generalized atrophic changes and associated calcifications are observed consistent chronic pancreatitis. Diffuse inflammatory changes surrounding the duodenal and head of the pancreas are observed that would be consistent with patient's history of pancreatitis but duodenitis and peptic ulcer disease would have a similar appearance. These changes are stable to slightly improved when compared to prior examination. Fluid layering within the pelvis is noted to be present likely on basis 3rd space volumes. Remainder of the solid organs appear unremarkable in their CT appearance. The appendix is unremarkable in its CT appearance.. The colon is unremarkable. Specifically, there is no diverticulosis noted within the sigmoid colon. The urinary bladder is grossly unremarkable. The bony structures are grossly intact.IMPRESSION:Changes consistent with chronic pancreatitis with ductal dilatation and associated dystrophic calcifications of the pancreas. Diffuse mesenteric stranding surrounding the duodenal and head of the pancreas is observed and essentially unchanged when compared to prior examinations. A minimal amount of free fluid within the pelvis is noted to be present.THIS IS AN ELECTRONICALLY VERIFIED FINAL REPORT04/17/2024 11:52 AM - Electronically signed by Catrachito Walker MD
[2024-04-17] MEDS: NICOTINE PATCH TD SCH (15:59)
[2024-04-18 05:45] LABS: BASOPHILS % (AUTO) 0.3 % (0.2-1.0); EOSINOPHILS # (AUTO) 0.2 x10^3/uL (0.0-0.2); EOSINOPHILS % (AUTO) 2.4 % (0.9-2.9); HEMATOCRIT 37.9 % (42.0-54.0); HEMOGLOBIN 12.9 g/dL (13.5-18.0); LYMPHOCYTES # (AUTO) 1.3 X10^3/uL (1.3-2.9); LYMPHOCYTES % (AUTO) 19.6 % (21.0-51.0); MEAN CORPUSCULAR HEMOGLOBIN 34.4 pg (27.0-34.0); MEAN CORPUSCULAR VOLUME 101.4 fL (80.0-100.0); MEAN PLATELET VOLUME 6.9 fL (7.4-11.0); MONOCYTES # (AUTO) 0.8 x10^3/uL (0.3-0.8); MONOCYTES % (AUTO) 11.7 % (0.0-13.0); NEUTROPHILS # (AUTO) 4.2 x10^3/uL (2.2-4.8); PLATELET COUNT 249 X10^3/uL (150.0-450.0); RED BLOOD COUNT 3.74 X10^6/uL (4.7-6.0); RED CELL DISTRIBUTION WIDTH 14.2 % (11.6-16.5); WHITE BLOOD COUNT 6.4 X10^3/uL (3.6-10.0)
[2024-04-18 05:53] LABS: ALANINE AMINOTRANSFERASE 237 Units/L (12-78); ALBUMIN 3.3 g/dL (3.4-5.0); ALKALINE PHOSPHATASE 118 Units/L (46-116); ASPARTATE AMINO TRANSFERASE 326 Units/L (15-37); BLOOD UREA NITROGEN 5 mg/dL (7-18); CALCIUM 8.8 mg/dL (8.5-10.1); CARBON DIOXIDE 32.2 mmol/L (21-32); CHLORIDE 98 mmol/L (98-107); COR CA(FOR HYPOALB) 9.4 mg/dL (8.5-10.1); COR NA(FOR HYPERGLY) 133 mmol/L (136-145); CREATININE 0.73 mg/dL (0.70-1.30); GLUCOSE 112 mg/dL (65-99); MAGNESIUM 1.4 mg/dL (2.0-2.9); POTASSIUM 3.7 mmol/L (3.5-5.1); SODIUM 133 mmol/L (136-145); TOTAL PROTEIN 6.7 g/dL (6.4-8.2); eGFR NON BLACK RACES > 60 (>60)
[2024-04-18] MEDS ORDERED: CONSULT PHARMACY - POTASSIUM & MAGNESIUM XX SCH (07:00)
[2024-04-18 08:13] LABS: AMYLASE 523 Units/L (25-115)
[2024-04-18] MEDS: K-RIDER 10 MEQ/100 ML WATER 10 MEQ/100 ML BAG IV SCH (08:18)
[2024-04-18] MEDS: MAGNESIUM SULFATE 1 GRAM/100 mL PREMIX 1 G/100 ML BAG IV SCH (08:18)
[2024-04-18 08:24] LABS: LIPASE 728 Units/L (16-77)
[2024-04-18] MEDS: MAG-OX TAB PO SCH (09:14)
[2024-04-18] MEDS: D5 1/2 NS 1,000 ML 1,000 ML with MAGNESIUM SULFATE 50% INJ VIAL 1 G IV SCH (10:30)
--- NOTE | 2024-04-18 11:43 | DR.PROGNOT ---
HOSPITAL PROGRESS NOTE Progress Note for Day of: Progress Note Date: 04/18/24 Chief Complaint Chief Complaint: Still complaining of epigastric pain radiating across the upper abdomen. Had several episodes of vomiting last night. Pancreatic enzymes went up today with serum lipase is up to 728 and serum amylase is up to 523. Liver enzymes are slightly elevated as well with AST 326, ALT 237, alkaline phosphatase 118, serum bilirubin is normal 1. Patient is afebrile. Past Medical Family Social History Allergies: Allergies No Known Drug Allergies Allergy (Unknown, Verified 04/06/24 11:57) Onset Date: 12/04/2021 Review Of Systems ROS: No change since H&P Vital Signs Vital Signs: Vital Signs Temperature 98.0 F Temperature 98.0 F Pulse Rate [Right Brachial] 73 Pulse Rate [Right Brachial] 69 Respiratory Rate 18 Respiratory Rate 18 Respiratory Rate 20 Respiratory Rate 20 Respiratory Rate 20 Respiratory Rate 19 Blood Pressure [Right Arm] 124/77 Blood Pressure [Right Arm] 150/72 O2 Sat by Pulse Oximetry 98 O2 Sat by Pulse Oximetry 99 Physical Exam Oriented: Normal Eyes: Normal Nose: Normal Throat: Normal Respiratory: Normal Cardiovascular: Normal GI:Auscultation: Normal GI:Palpation: Other (Flat and soft abdomen with epigastric and right upper quadrant tenderness, no rebound or rigidity, bowel sounds present but hypoactive.) Speech Pattern: Clear and Appropriate Laboratory and Diagnostics 04/18/24 05:12 04/18/24 05:12 Labs: 04/16/24 17:00 Blood Blood Culture - Preliminary 04/16/24 14:35 Blood Blood Culture - Preliminary Laboratory WBC 6.4 X10^3/uL (3.6-10.0) 04/18/24 05:12 RBC 3.74 X10^6/uL (4.7-6.0) L 04/18/24 05:12 Hgb 12.9 g/dL (13.5-18.0) L 04/18/24 05:12 Hct 37.9 % (42.0-54.0) L 04/18/24 05:12 MCV 101.4 fL (80.0-100.0) H 04/18/24 05:12 MCH 34.4 pg (27.0-34.0) H 04/18/24 05:12 MCHC 34.0 g/dL (33.0-35.0) 04/18/24 05:12 RDW 14.2 % (11.6-16.5) 04/18/24 05:12 Plt Count 249 X10^3/uL (150.0-450.0) 04/18/24 05:12 MPV 6.9 fL (7.4-11.0) L 04/18/24 05:12 Neut % (Auto) 66.0 % (42.0-75.0) 04/18/24 05:12 Lymph % (Auto) 19.6 % (21.0-51.0) L 04/18/24 05:12 [place] % (Auto) 11.7 % (0.0-13.0) 04/18/24 05:12 Eos % (Auto) 2.4 % (0.9-2.9) 04/18/24 05:12 Baso % (Auto) 0.3 % (0.2-1.0) 04/18/24 05:12 Neut # (Auto) 4.2 x10^3/uL (2.2-4.8) 04/18/24 05:12 Lymph # (Auto) 1.3 X10^3/uL (1.3-2.9) 04/18/24 05:12 [place] # (Auto) 0.8 x10^3/uL (0.3-0.8) 04/18/24 05:12 Eos # (Auto) 0.2 x10^3/uL (0.0-0.2) 04/18/24 05:12 Baso # (Auto) 0.0 X10^3/uL (0.0-0.1) 04/18/24 05:12 Absolute Nucleated RBC 0.2 /100WBC 04/18/24 05:12 Sodium 133 mmol/L (136-145) L 04/18/24 05:12 Corrected Sodium 133 mmol/L (136-145) L 04/18/24 05:12 Potassium 3.7 mmol/L (3.5-5.1) 04/18/24 05:12 Chloride 98 mmol/L (98-107) 04/18/24 05:12 Carbon Dioxide 32.2 mmol/L (21-32) H 04/18/24 05:12 BUN 5 mg/dL (7-18) L 04/18/24 05:12 Creatinine 0.73 mg/dL (0.70-1.30) 04/18/24 05:12 Est GFR (MDRD) Af Amer > 60 (>60) 04/18/24 05:12 Est GFR (MDRD) Non-Af > 60 (>60) 04/18/24 05:12 Glucose 112 mg/dL (65-99) H 04/18/24 05:12 Lactic Acid 1.3 mmol/L (0.4-2.0) 04/16/24 18:40 Calcium 8.8 mg/dL (8.5-10.1) 04/18/24 05:12 Corrected Calcium 9.4 mg/dL (8.5-10.1) 04/18/24 05:12 Magnesium 1.4 mg/dL (2.0-2.9) L 04/18/24 05:12 Total Bilirubin 1.00 mg/dL (0.2-1.0) 04/18/24 05:12 AST 326 Units/L (15-37) H 04/18/24 05:12 ALT 237 Units/L (12-78) H 04/18/24 05:12 Alkaline Phosphatase 118 Units/L (46-116) H 04/18/24 05:12 C-Reactive Protein 4.30 mg/L (0-3.0) H 04/16/24 14:35 Total Protein 6.7 g/dL (6.4-8.2) 04/18/24 05:12 Albumin 3.3 g/dL (3.4-5.0) L 04/18/24 05:12 Globulin 3.4 g/dL (2.5-4.5) 04/18/24 05:12 Albumin/Globulin Ratio 1.0 Ratio (1.1-2.1) L 04/18/24 05:12 Amylase 523 Units/L (25-115) H 04/18/24 05:12 Lipase 728 Units/L (16-77) H 04/18/24 05:12 Specimen Type Clean catch urine 04/16/24 15:39 Urine Color [place] (YELLOW) 04/16/24 15:39 Urine Appearance Clear (CLEAR) 04/16/24 15:39 Urine pH 7.0 (5.0 - 8.0) 04/16/24 15:39 Ur Specific [place] 1.015 (1.000-1.030) 04/16/24 15:39 Urine Protein 3+ (NEGATIVE) 04/16/24 15:39 Urine Glucose (UA) Negative (NEGATIVE) 04/16/24 15:39 Urine Ketones Negative (NEGATIVE) 04/16/24 15:39 Urine Blood 3+ (NEGATIVE) 04/16/24 15:39 Urine Nitrite Negative (NEGATIVE) 04/16/24 15:39 Urine Bilirubin Negative (NEGATIVE) 04/16/24 15:39 Urine Urobilinogen Normal (NORMAL) 04/16/24 15:39 Ur Leukocyte Esterase 1+ (NEGATIVE) 04/16/24 15:39 Urine RBC 5-10 /HPF (0-3) A 04/16/24 15:39 Urine WBC 0-2 /HPF (0-5) 04/16/24 15:39 Ur Squamous Epith Cells Rare /HPF (NEGATIVE) 04/16/24 15:39 Urine Bacteria Trace /HPF (NEGATIVE) 04/16/24 15:39 Hyaline Casts Rare /LPF (NEGATIVE) 04/16/24 15:39 Urine Mucus Many /HPF (NEGATIVE) 04/16/24 15:39 Ur Culture Indicated? No/not indicated 04/16/24 15:39 Assessment and Plan 1: Recurrent pancreatitis. Same IV fluid and supportive care. Low-fat diet. 2: Chronic peptic ulcer disease with partial gastric outlet obstruction. Will need upper GI series to evaluate the degree of gastric outlet obstruction and duodenal deformity. Problem Patient Problems: Patient Problems Acute pancreatitis (Acute) K85.90 Intractable nausea and vomiting (Acute) R11.2
[2024-04-18] MEDS: D5 1/2 NS 1,000 ML 1,000 ML IV SCH (13:33)
[2024-04-18] MEDS: BENTYL CAP 10 MG PO SCH (13:49)
[2024-04-18] MEDS: NS 500 ML IV 500 ML with MAGNESIUM SULFATE 50% INJ VIAL 4 G IV ONE (13:50)
[2024-04-18] MEDS: CARAFATE PO SCH (16:25)
[2024-04-19 06:13] LABS: BASOPHILS % (AUTO) 0.5 % (0.2-1.0); EOSINOPHILS # (AUTO) 0.2 x10^3/uL (0.0-0.2); EOSINOPHILS % (AUTO) 3.3 % (0.9-2.9); HEMATOCRIT 39.8 % (42.0-54.0); HEMOGLOBIN 13.5 g/dL (13.5-18.0); LYMPHOCYTES # (AUTO) 1.3 X10^3/uL (1.3-2.9); LYMPHOCYTES % (AUTO) 19.7 % (21.0-51.0); MEAN CORPUSCULAR HEMOGLOBIN 34.4 pg (27.0-34.0); MEAN CORPUSCULAR HGB CONC 33.8 g/dL (33.0-35.0); MEAN CORPUSCULAR VOLUME 101.6 fL (80.0-100.0); MEAN PLATELET VOLUME 7.2 fL (7.4-11.0); MONOCYTES # (AUTO) 0.8 x10^3/uL (0.3-0.8); MONOCYTES % (AUTO) 12.1 % (0.0-13.0); NEUTROPHILS # (AUTO) 4.1 x10^3/uL (2.2-4.8); NEUTROPHILS % (AUTO) 64.4 % (42.0-75.0); PLATELET COUNT 244 X10^3/uL (150.0-450.0); RED BLOOD COUNT 3.92 X10^6/uL (4.7-6.0); RED CELL DISTRIBUTION WIDTH 14.1 % (11.6-16.5); WHITE BLOOD COUNT 6.4 X10^3/uL (3.6-10.0)
[2024-04-19 06:28] LABS: ALANINE AMINOTRANSFERASE 365 Units/L (12-78); ALBUMIN 3.4 g/dL (3.4-5.0); ALKALINE PHOSPHATASE 206 Units/L (46-116); ASPARTATE AMINO TRANSFERASE 365 Units/L (15-37); BLOOD UREA NITROGEN 5 mg/dL (7-18); CALCIUM 9.1 mg/dL (8.5-10.1); CARBON DIOXIDE 31.1 mmol/L (21-32); CHLORIDE 93 mmol/L (98-107); COR NA(FOR HYPERGLY) 131 mmol/L (136-145); GLUCOSE 111 mg/dL (65-99); MAGNESIUM 1.5 mg/dL (2.0-2.9); POTASSIUM 3.1 mmol/L (3.5-5.1); SODIUM 131 mmol/L (136-145); TOTAL PROTEIN 7.2 g/dL (6.4-8.2); eGFR NON BLACK RACES > 60 (>60)
[2024-04-19] MEDS ORDERED: CONSULT PHARMACY - POTASSIUM & MAGNESIUM XX SCH (07:00)
[2024-04-19] MEDS: NS 500 ML IV 500 ML with MAGNESIUM SULFATE 50% INJ VIAL 5 G IV NR (08:57)
--- NOTE | 2024-04-19 09:46 | DR.PROGNOT ---
HOSPITAL PROGRESS NOTE Progress Note for Day of: Progress Note Date: 04/19/24 Chief Complaint Chief Complaint: Patient is feeling better in general, no nausea or vomiting today and his abdominal pain is somewhat controlled with medications, although his liver function tests and pancreatic enzymes are trending up. Potassium 3.1, his urine output is adequate. Afebrile. Abdomen is soft and flat with diffuse moderate epigastric tenderness, bowel sounds were present but hypoactive. Past Medical Family Social History Allergies: Allergies No Known Drug Allergies Allergy (Unknown, Verified 04/06/24 11:57) Onset Date: 12/04/2021 Review Of Systems ROS: No change since H&P Vital Signs Vital Signs: Vital Signs Temperature 98.4 F Temperature 98.4 F Pulse Rate [Right Brachial] 73 Pulse Rate [Right Brachial] 75 Respiratory Rate 18 Respiratory Rate 20 Respiratory Rate 20 Respiratory Rate 18 Blood Pressure [Left Arm] 100/61 Blood Pressure [Right Arm] 137/70 O2 Sat by Pulse Oximetry 98 O2 Sat by Pulse Oximetry 96 Physical Exam Oriented: Normal Eyes: Normal Nose: Normal Throat: Normal Respiratory: Normal Cardiovascular: Normal GI:Auscultation: Normal GI:Palpation: Other (Flat and soft abdomen with epigastric and right upper quadrant tenderness, no rebound or rigidity, bowel sounds present but hypoactive.) Speech Pattern: Clear and Appropriate Laboratory and Diagnostics 04/19/24 05:20 04/19/24 05:20 Labs: 04/16/24 17:00 Blood Blood Culture - Preliminary 04/16/24 14:35 Blood Blood Culture - Preliminary Laboratory WBC 6.4 X10^3/uL (3.6-10.0) 04/19/24 05:20 RBC 3.92 X10^6/uL (4.7-6.0) L 04/19/24 05:20 Hgb 13.5 g/dL (13.5-18.0) 04/19/24 05:20 Hct 39.8 % (42.0-54.0) L 04/19/24 05:20 MCV 101.6 fL (80.0-100.0) H 04/19/24 05:20 MCH 34.4 pg (27.0-34.0) H 04/19/24 05:20 MCHC 33.8 g/dL (33.0-35.0) 04/19/24 05:20 RDW 14.1 % (11.6-16.5) 04/19/24 05:20 Plt Count 244 X10^3/uL (150.0-450.0) 04/19/24 05:20 MPV 7.2 fL (7.4-11.0) L 04/19/24 05:20 Neut % (Auto) 64.4 % (42.0-75.0) 04/19/24 05:20 Lymph % (Auto) 19.7 % (21.0-51.0) L 04/19/24 05:20 [place] % (Auto) 12.1 % (0.0-13.0) 04/19/24 05:20 Eos % (Auto) 3.3 % (0.9-2.9) H 04/19/24 05:20 Baso % (Auto) 0.5 % (0.2-1.0) 04/19/24 05:20 Neut # (Auto) 4.1 x10^3/uL (2.2-4.8) 04/19/24 05:20 Lymph # (Auto) 1.3 X10^3/uL (1.3-2.9) 04/19/24 05:20 [place] # (Auto) 0.8 x10^3/uL (0.3-0.8) 04/19/24 05:20 Eos # (Auto) 0.2 x10^3/uL (0.0-0.2) 04/19/24 05:20 Baso # (Auto) 0.0 X10^3/uL (0.0-0.1) 04/19/24 05:20 Absolute Nucleated RBC 0.1 /100WBC 04/19/24 05:20 Sodium 131 mmol/L (136-145) L 04/19/24 05:20 Corrected Sodium 131 mmol/L (136-145) L 04/19/24 05:20 Potassium 3.1 mmol/L (3.5-5.1) L 04/19/24 05:20 Chloride 93 mmol/L (98-107) L 04/19/24 05:20 Carbon Dioxide 31.1 mmol/L (21-32) 04/19/24 05:20 BUN 5 mg/dL (7-18) L 04/19/24 05:20 Creatinine 0.70 mg/dL (0.70-1.30) 04/19/24 05:20 Est GFR (MDRD) Af Amer > 60 (>60) 04/19/24 05:20 Est GFR (MDRD) Non-Af > 60 (>60) 04/19/24 05:20 Glucose 111 mg/dL (65-99) H 04/19/24 05:20 Lactic Acid 1.3 mmol/L (0.4-2.0) 04/16/24 18:40 Calcium 9.1 mg/dL (8.5-10.1) 04/19/24 05:20 Corrected Calcium TNP 04/19/24 05:20 Magnesium 1.5 mg/dL (2.0-2.9) L 04/19/24 05:20 Total Bilirubin 0.80 mg/dL (0.2-1.0) 04/19/24 05:20 AST 365 Units/L (15-37) H 04/19/24 05:20 ALT 365 Units/L (12-78) H 04/19/24 05:20 Alkaline Phosphatase 206 Units/L (46-116) H 04/19/24 05:20 C-Reactive Protein 4.30 mg/L (0-3.0) H 04/16/24 14:35 Total Protein 7.2 g/dL (6.4-8.2) 04/19/24 05:20 Albumin 3.4 g/dL (3.4-5.0) 04/19/24 05:20 Globulin 3.8 g/dL (2.5-4.5) 04/19/24 05:20 Albumin/Globulin Ratio 0.9 Ratio (1.1-2.1) L 04/19/24 05:20 Amylase 523 Units/L (25-115) H 04/18/24 05:12 Lipase 728 Units/L (16-77) H 04/18/24 05:12 Specimen Type Clean catch urine 04/16/24 15:39 Urine Color [place] (YELLOW) 04/16/24 15:39 Urine Appearance Clear (CLEAR) 04/16/24 15:39 Urine pH 7.0 (5.0 - 8.0) 04/16/24 15:39 Ur Specific [place] 1.015 (1.000-1.030) 04/16/24 15:39 Urine Protein 3+ (NEGATIVE) 04/16/24 15:39 Urine Glucose (UA) Negative (NEGATIVE) 04/16/24 15:39 Urine Ketones Negative (NEGATIVE) 04/16/24 15:39 Urine Blood 3+ (NEGATIVE) 04/16/24 15:39 Urine Nitrite Negative (NEGATIVE) 04/16/24 15:39 Urine Bilirubin Negative (NEGATIVE) 04/16/24 15:39 Urine Urobilinogen Normal (NORMAL) 04/16/24 15:39 Ur Leukocyte Esterase 1+ (NEGATIVE) 04/16/24 15:39 Urine RBC 5-10 /HPF (0-3) A 04/16/24 15:39 Urine WBC 0-2 /HPF (0-5) 04/16/24 15:39 Ur Squamous Epith Cells Rare /HPF (NEGATIVE) 04/16/24 15:39 Urine Bacteria Trace /HPF (NEGATIVE) 04/16/24 15:39 Hyaline Casts Rare /LPF (NEGATIVE) 04/16/24 15:39 Urine Mucus Many /HPF (NEGATIVE) 04/16/24 15:39 Ur Culture Indicated? No/not indicated 04/16/24 15:39 Assessment and Plan 1: Recurrent pancreatitis. Same IV fluid and supportive care. Low-fat diet. 2: Chronic peptic ulcer disease with partial gastric outlet obstruction. Will need upper GI series to evaluate the degree of gastric outlet obstruction and duodenal deformity. That could be done as an outpatient after discharge. For the time being we will treat the pancreatitis.. Problem Patient Problems: Patient Problems Acute pancreatitis (Acute) K85.90 Intractable nausea and vomiting (Acute) R11.2
[2024-04-19] MEDS ORDERED: MAG-OX TAB PO SCH (10:00)
[2024-04-19] MEDS: K-DUR TAB 20 MEQ PO ONE (10:52)
[2024-04-20 05:02] VITALS: RESP 18
[2024-04-20 06:32] LABS: BASOPHILS # (AUTO) 0.1 X10^3/uL (0.0-0.1); BASOPHILS % (AUTO) 1.2 % (0.2-1.0); EOSINOPHILS # (AUTO) 0.5 x10^3/uL (0.0-0.2); EOSINOPHILS % (AUTO) 8.8 % (0.9-2.9); HEMATOCRIT 36.4 % (42.0-54.0); HEMOGLOBIN 12.6 g/dL (13.5-18.0); LYMPHOCYTES # (AUTO) 2.4 X10^3/uL (1.3-2.9); LYMPHOCYTES % (AUTO) 41.2 % (21.0-51.0); MEAN CORPUSCULAR HGB CONC 34.5 g/dL (33.0-35.0); MEAN CORPUSCULAR VOLUME 101.3 fL (80.0-100.0); MEAN PLATELET VOLUME 7.2 fL (7.4-11.0); MONOCYTES # (AUTO) 0.7 x10^3/uL (0.3-0.8); MONOCYTES % (AUTO) 11.9 % (0.0-13.0); NEUTROPHILS # (AUTO) 2.1 x10^3/uL (2.2-4.8); NEUTROPHILS % (AUTO) 36.9 % (42.0-75.0); PLATELET COUNT 257 X10^3/uL (150.0-450.0); RED CELL DISTRIBUTION WIDTH 14.3 % (11.6-16.5); WHITE BLOOD COUNT 5.8 X10^3/uL (3.6-10.0)
[2024-04-20 06:41] LABS: AMYLASE 133 Units/L (25-115); LIPASE 104 Units/L (16-77)
[2024-04-20 06:48] LABS: ALANINE AMINOTRANSFERASE 231 Units/L (12-78); ALBUMIN 3.5 g/dL (3.4-5.0); ALKALINE PHOSPHATASE 176 Units/L (46-116); ASPARTATE AMINO TRANSFERASE 120 Units/L (15-37); BLOOD UREA NITROGEN 6 mg/dL (7-18); CALCIUM 8.9 mg/dL (8.5-10.1); CARBON DIOXIDE 31.3 mmol/L (21-32); CHLORIDE 95 mmol/L (98-107); COR NA(FOR HYPERGLY) 130 mmol/L (136-145); CREATININE 0.82 mg/dL (0.70-1.30); GLUCOSE 120 mg/dL (65-99); MAGNESIUM 1.9 mg/dL (2.0-2.9); POTASSIUM 3.6 mmol/L (3.5-5.1); SODIUM 130 mmol/L (136-145); TOTAL PROTEIN 7.1 g/dL (6.4-8.2); eGFR NON BLACK RACES > 60 (>60)
[2024-04-20] MEDS ORDERED: CONSULT PHARMACY - POTASSIUM & MAGNESIUM XX SCH (08:00)
[2024-04-20 08:26] VITALS: BP 112/64; PULSE 76; TEMP 97.4; O2SAT 97
== END 2024-04-20 11:20 | disposition home or self-care (01) | DRG 439 ==
LOC: ER 13:58 → MED/SURG 13:58 → OBSVTOIN 18:30 → MED/SURG 18:50
PROVIDERS: ADMIT Surgery; ATTEND Surgery
DX: E87.6 Hypokalemia; F41.8 Other specified anxiety disorders; K85.80 Other acute pancreatitis without necrosis or infection; R11.2 Nausea with vomiting, unspecified; I10 Essential (primary) hypertension; E87.1 Hypo-osmolality and hyponatremia; J44.9 Chronic obstructive pulmonary disease, unspecified; R74.8 Abnormal levels of other serum enzymes; K21.9 Gastro-esophageal reflux disease without esophagitis; K31.1 Adult hypertrophic pyloric stenosis; K27.7 Chronic peptic ulcer, site unspecified, without hemorrhage or perforation; E83.42 Hypomagnesemia; R10.84 Generalized abdominal pain; R74.01 Elevation of levels of liver transaminase levels

== ENCOUNTER 2024-04-25 23:00 | Inpatient (IN) ==
--- NOTE | 2024-04-26 | DR.N/VMALE ---
HPI Time Seen Time Seen by Provider: 04/26/24 00:00 Primary Care Physician Primary Care Physician: Dr. Gray/Dr. Robert Candy Complaints Chief Complaint Doctors Comments: Patient has a h/o chronic pancreatitis and was last admitted -01/21/2024.Patient presents today because he has been having intractable vomiting today and can't keep anything down. Patient denies: fever, hematemesis, hematochezia, urinary sxs, chest pain,back pain. Chief Complaint:: Pt ambulatory into ER c/o nausea and vomiting since Wednesday. Pt states he is here because he needs NS, Zofran and Dilaudid. Self Treatment fo Chief Complaint: Took phenergan and zofran at 2100 COVID-19 Coronavirus risk:travel/contact w/high risk person: No Has patient experienced Coronavirus symptoms: No Source History Provided: Significant Other Mode of Arrival Mode of Arrival: Ambulatory Timing Onset of Chief Complaint: 04/23/24 PMH PMH Past Medical History: Yes Past Medical History: Anxiety, COPD, Depression, GERD and Hypertension Past Medical History Comment: Chronic Pancreatitis, Gastric Ulcers Past Surgical History: Yes Surgical History: Cholecystectomy and Ortho Surgery Family History History of Family Medical Conditions: Yes Family Medical History: Diabetes Mellitus, Cancer, [place], Coronary Artery Disease and Hypertension Social History Alcohol Use: None Do you use any recreational Drugs:: No Lives With: Spouse Lives Where: Home Travel Risk Coronavirus risk:travel/contact w/high risk person: No Has patient experienced Coronavirus symptoms: No Infectious screening In the last 2 months have you had wt loss of >10#?: NO Have you had fever, night sweats or hemotysis?: No Have you traveled outside the country in the last 6 months?: No Isolation: Standard ROS Review of Systems Constitutional: No Symptoms Reported Eyes: No Symptoms Reported ENTM: No Symptoms Reported Respiratoy: No Symptoms Reported Cardiovascular: No Symptoms Reported Gastrointestinal/Abdominal: Abdominal Pain (RUQ/RLQ), Nausea and Vomiting Genitourinary: No Symptoms Reported Neurological: No Symptoms Reported Musculoskeletal: No Symptoms Reported Integumentary: No Symptoms Reported Hematologic/Lymphatic: No Symptoms Reported Endocrine: No Symptoms Reported Psychiatric: No Symptoms Reported All Other Systems: Reviewed and Negative PE Vital Signs Vitals: Vital Signs Temperature 97.6 F Pulse Rate 113 Respiratory Rate 16 Blood Pressure 118/77 O2 Sat by Pulse Oximetry 98 General Limitations: No Limitations General Appearance: Alert and In No Apparent Distress Head Head Exam: Normal Inspection Eyes Eye exam: Normal Appearance ENT ENT Exam: Normal Exam Neck Neck Exam: Normal Inspection Chest Chest Inspection: Normal Inspection Respiratory Respiratory Exam: Normal Lung Sounds Bilat Respiratory Exam: Bilateral: Clear to Auscultation Cardiovascular Cardiovascular Exam: Normal Rhythm and Tachycardia Abdominal Exam Abdominal Exam: Soft, Guarding (RUQ/RLQ) and Hypoactive Bowel Sounds Abdominal Tenderness: RUQ, RLQ and Epigastrium Rectal Rectal Exam: Deferred Exam: Male: Deferred Extremities Extremities Exam: Normal Inspection Back Back Exam: Normal Inspection Neurologic Neurological Exam: Alert and Oriented X3 Psychiatric Psychiatric Exam: Normal Affect and Normal Mood Skin Skin Exam: Warm, Dry, Intact and Normal Color MDM Differential Diagnosis Differential Diagnosis: Considerations may Include:: Bowel Obstruction, Inflammatory BD and Pancreatitis Differential Diagnosis Comment: DDX: bowel perforation,bowel ischemia,electrolyte disorder COURSE Treatment Treatment: Patient was brought to an exam room IV access was initiated and patient was given Zofran 4 mg IV and a normal saline bolus IV. Labs and tests were ordered. Patient has CBC: wbc 6.4,hgb 12.9/hct 37.9, CMP: Na/K/BUN,creat stable,LFTs improved(compared to 04/18/2024).Abd/Pelvis CT has been Discussed case with Dr. Craft. Dr. Craft will admit the patient to his service. [facility] Labs Reviewed 04/26/24 00:14 04/26/24 00:14 Laboratory: WBC 9.8 X10^3/uL (3.6-10.0) 04/26/24 00:14 RBC 4.84 X10^6/uL (4.7-6.0) 04/26/24 00:14 Hgb 17.2 g/dL (13.5-18.0) 04/26/24 00:14 Hct 49.4 % (42.0-54.0) 04/26/24 00:14 MCV 102.0 fL (80.0-100.0) H 04/26/24 00:14 MCH 35.6 pg (27.0-34.0) H 04/26/24 00:14 MCHC 34.9 g/dL (33.0-35.0) 04/26/24 00:14 RDW 14.2 % (11.6-16.5) 04/26/24 00:14 Plt Count 420 X10^3/uL (150.0-450.0) 04/26/24 00:14 MPV 7.1 fL (7.4-11.0) L 04/26/24 00:14 Neut % (Auto) 71.8 % (42.0-75.0) 04/26/24 00:14 Lymph % (Auto) 19.6 % (21.0-51.0) L 04/26/24 00:14 [place] % (Auto) 7.8 % (0.0-13.0) 04/26/24 00:14 Eos % (Auto) 0.4 % (0.9-2.9) L 04/26/24 00:14 Baso % (Auto) 0.4 % (0.2-1.0) 04/26/24 00:14 Neut # (Auto) 7.0 x10^3/uL (2.2-4.8) H 04/26/24 00:14 Lymph # (Auto) 1.9 X10^3/uL (1.3-2.9) 04/26/24 00:14 [place] # (Auto) 0.8 x10^3/uL (0.3-0.8) 04/26/24 00:14 Eos # (Auto) 0.0 x10^3/uL (0.0-0.2) 04/26/24 00:14 Baso # (Auto) 0.0 X10^3/uL (0.0-0.1) 04/26/24 00:14 Absolute Nucleated RBC 0.1 /100WBC 04/26/24 00:14 Sodium 133 mmol/L (136-145) L 04/26/24 00:14 Corrected Sodium 134 mmol/L (136-145) L 04/26/24 00:14 Potassium 3.4 mmol/L (3.5-5.1) L 04/26/24 00:14 Chloride 90 mmol/L (98-107) L 04/26/24 00:14 Carbon Dioxide 32.5 mmol/L (21-32) H 04/26/24 00:14 BUN 18 mg/dL (7-18) 04/26/24 00:14 Creatinine 0.98 mg/dL (0.70-1.30) 04/26/24 00:14 Est GFR (MDRD) Af Amer > 60 (>60) 04/26/24 00:14 Est GFR (MDRD) Non-Af > 60 (>60) 04/26/24 00:14 Glucose 122 mg/dL (65-99) H 04/26/24 00:14 Calcium 10.0 mg/dL (8.5-10.1) 04/26/24 00:14 Corrected Calcium TNP 04/26/24 00:14 Total Bilirubin 0.60 mg/dL (0.2-1.0) 04/26/24 00:14 AST 68 Units/L (15-37) H 04/26/24 00:14 ALT 122 Units/L (12-78) H 04/26/24 00:14 Alkaline Phosphatase 178 Units/L (46-116) H 04/26/24 00:14 Total Protein 9.0 g/dL (6.4-8.2) H 04/26/24 00:14 Albumin 4.3 g/dL (3.4-5.0) 04/26/24 00:14 Globulin 4.7 g/dL (2.5-4.5) H 04/26/24 00:14 Albumin/Globulin Ratio 0.9 Ratio (1.1-2.1) L 04/26/24 00:14 Amylase 408 Units/L (25-115) H 04/26/24 00:14 Lipase 240 Units/L (16-77) H 04/26/24 00:14 Opioid Opioid Risk Tool Age (Thang box if 16-45): No History of Preadolescent Sexual Abuse: No Total: 0 Total Score Risk Category: Low Risk Copyright: Jose Antonio CLAYTON predicting aberrant behaviors Discharge Plan Diagnosis Discharge Problem: Pancreatitis Discharge Plan Patient Disposition: 09 ADMITTED INPATIENT Condition: Stable Prescriptions: No Action pantoprazole [Protonix] 40 mg tablet,delayed release (DR/EC) 40 mg PO BID Qty: 60 2RF sucralfate [Carafate] 1 gram tablet 1 g PO TID Qty: 90 2RF dicyclomine 10 mg capsule 10 mg PO QID PRN (Reason: abdominal pain) Qty: 120 1RF gabapentin 300 mg capsule 300 mg PO BID Qty: 60 1RF atenolol-chlorthalidone 50-25 mg Tablet 1 tab PO DAILY citalopram 20 mg Tablet 20 mg PO DAILY fluticasone propion-salmeterol [Advair Diskus] 250-50 mcg/dose Blister With Device 1 inh INHALATION BID Creon 24,000-76,000 -120,000 unit Capsule,Delayed Release(Dr/Ec) 2 cap PO TID Rx Instructions: administer with meals and/or snacks ondansetron 4 mg tablet,disintegrating 4 mg PO Q8H MDD 3 PRN (Reason: nausea and vomiting) Qty: 20 0RF albuterol sulfate 90 mcg/actuation Hfa Aerosol Inhaler 2 inh INHALATION TID PRN Health Concerns: Post Hospitalization: new medications and changes needed to prevent readmission or further decline. Pt educated and given instructions on all concerns. Plan of Treatment: Continue with present treatment and follow up plan. Pt is to keep follow up appointment as instructed and take medications as ordered. Orders to Discharge Patient Discharge Orders: Transfer (Routine); Ordered 04/26/24 Ordered By: Iesha Randhawa Follow ups/Referrals Follow ups/Referrals: DANIELLE YOUNGBLOOD [Primary Care Provider] - 3 days Instructions Stand Alone Forms: Post Hospital Follow Up Care
[2024-04-26] MEDS: ZOFRAN INJ 4 MG VIAL IVP ONE (00:13)
[2024-04-26] MEDS: NS 1,000 ML IV 1,000 ML IV ONE (00:13)
[2024-04-26 00:42] LABS: ALANINE AMINOTRANSFERASE 122 Units/L (12-78); ALBUMIN 4.3 g/dL (3.4-5.0); ALKALINE PHOSPHATASE 178 Units/L (46-116); AMYLASE 408 Units/L (25-115); ASPARTATE AMINO TRANSFERASE 68 Units/L (15-37); BLOOD UREA NITROGEN 18 mg/dL (7-18); CARBON DIOXIDE 32.5 mmol/L (21-32); CHLORIDE 90 mmol/L (98-107); COR NA(FOR HYPERGLY) 134 mmol/L (136-145); CREATININE 0.98 mg/dL (0.70-1.30); GLUCOSE 122 mg/dL (65-99); LIPASE 240 Units/L (16-77); POTASSIUM 3.4 mmol/L (3.5-5.1); SODIUM 133 mmol/L (136-145); eGFR NON BLACK RACES > 60 (>60)
[2024-04-26 00:54] LABS: BASOPHILS % (AUTO) 0.4 % (0.2-1.0); EOSINOPHILS % (AUTO) 0.4 % (0.9-2.9); HEMATOCRIT 49.4 % (42.0-54.0); HEMOGLOBIN 17.2 g/dL (13.5-18.0); LYMPHOCYTES # (AUTO) 1.9 X10^3/uL (1.3-2.9); LYMPHOCYTES % (AUTO) 19.6 % (21.0-51.0); MEAN CORPUSCULAR HEMOGLOBIN 35.6 pg (27.0-34.0); MEAN CORPUSCULAR HGB CONC 34.9 g/dL (33.0-35.0); MEAN PLATELET VOLUME 7.1 fL (7.4-11.0); MONOCYTES # (AUTO) 0.8 x10^3/uL (0.3-0.8); MONOCYTES % (AUTO) 7.8 % (0.0-13.0); NEUTROPHILS % (AUTO) 71.8 % (42.0-75.0); PLATELET COUNT 420 X10^3/uL (150.0-450.0); RED BLOOD COUNT 4.84 X10^6/uL (4.7-6.0); RED CELL DISTRIBUTION WIDTH 14.2 % (11.6-16.5); WHITE BLOOD COUNT 9.8 X10^3/uL (3.6-10.0)
[2024-04-26] MEDS: ZOFRAN INJ 4 MG VIAL IVP PRN ×2 (04:15→11:00)
[2024-04-26] MEDS: NS 1,000 ML IV 1,000 ML IV SCH (04:16)
[2024-04-26] MEDS: DILAUDID INJ IVP PRN (04:16)
[2024-04-26] MEDS ORDERED: PROVENTIL NEB TX 0.083% 2.5MG/ 3ML NEB PRN (04:39)
--- NOTE | 2024-04-26 04:40 | CT ---
EXAM:CT ABDOMEN AND PELVIS WITH CONTRASTHISTORY:Chronic pancreatitisCOMPARISON:April 17, 2024, April 09, 2024, and March 31, 2024TECHNIQUE:Axial images were acquired of the abdomen and pelvis with IV contrast. Sagittal and coronal reformatted images were provided. All images were reviewed in a variety of windows and levels.RADIATION REDUCTION TECHNIQUE: Automated exposure control, adjustment of the mA and/or kV according to patient size, or iterative reconstruction techniques were used.FINDINGS:LOWER THORAX: The visualized lower lung zones are clear. The heart size is within normal limits. There is no evidence of a pericardial effusion.LIVER: No intrahepatic focal lesions are seen. No evidence of intrahepatic or extrahepatic duct dilation.GALLBLADDER: The gallbladder has been surgically removed.SPLEEN: The spleen enhances homogenously and is unremarkable.PANCREAS: The pancreas demonstrates chronic appearing dilation of the pancreatic duct with diffuse atrophy and calcifications. This is in correlation with patient's history of chronic pancreatitis. There is also inflammatory changes seen in the adjacent region of the duodenal suggesting ongoing duodenitis. There are multiple areas of pockets of like fluid seen which may represent abscesses although this is not definitively clear and remains stable from the prior examination. There is also surrounding fluid present. There is also edema and inflammation extending to the adjacent colon within the region of the hepatic flexure. There is also a moderate amount of fluid traversing inferiorly.ADRENAL GLANDS: The adrenal glands enhance homogenously and are unremarkable.: The kidneys enhance homogenously. Their collecting system is of normal caliber.URINARY BLADDER: The urinary bladder is unremarkable. There are no soft tissue masses seen in the urinary bladder.VESSELS: The abdominal aorta is normal in size without evidence of aneurysm or dissection. The celiac artery, superior mesenteric artery, [place] renal arteries, and inferior mesenteric artery are patent.GI: The stomach is distended and filled with air. Remaining loops of small bowel appear grossly unremarkable. There is circumferential mucosal edema with surrounding pericolonic inflammatory changes seen in the region of the sigmoid colon which may represent a long segment of colitis. There are no inflammatory changes seen in the right lower quadrant to suggest secondary signs of acute appendicitis. Partial visualization of the appendix is normal. The appendix is not seen in its entirety on this examination.LYMPHNODES AND MESENTERY: There is no evidence of retroperitoneal lymphadenopathy.BONES: The visualized bones demonstrate degenerative changes. There are no concerning lytic or blastic lesions identified.IMPRESSION:1. The pancreas demonstrates chronic appearing dilation of the pancreatic duct with diffuse atrophy and calcifications. This is in correlation with patient's history of chronic pancreatitis. There is also inflammatory changes seen in the adjacent region of the duodenal suggesting ongoing duodenitis. There are multiple areas of pockets of like fluid seen which may represent abscesses although this is not definitively clear and remains stable from the prior examination. There is also surrounding fluid present. There is also edema and inflammation extending to the adjacent colon within the region of the hepatic flexure. There is also a moderate amount of fluid traversing inferiorly.2. is circumferential mucosal edema with surrounding pericolonic inflammatory changes seen in the region of the sigmoid colon which may represent a long segment of colitis.THIS IS AN ELECTRONICALLY VERIFIED FINAL REPORT04/26/2024 4:36 AM - Electronically signed by Brody Rubi MD
[2024-04-26] MEDS: CARAFATE PO SCH (05:03)
[2024-04-26 06:29] LABS: BASOPHILS % (AUTO) 0.3 % (0.2-1.0); EOSINOPHILS # (AUTO) 0.1 x10^3/uL (0.0-0.2); EOSINOPHILS % (AUTO) 0.6 % (0.9-2.9); HEMATOCRIT 42.6 % (42.0-54.0); HEMOGLOBIN 14.7 g/dL (13.5-18.0); LYMPHOCYTES % (AUTO) 23.4 % (21.0-51.0); MEAN CORPUSCULAR HEMOGLOBIN 35.3 pg (27.0-34.0); MEAN CORPUSCULAR HGB CONC 34.6 g/dL (33.0-35.0); MEAN CORPUSCULAR VOLUME 102.1 fL (80.0-100.0); MEAN PLATELET VOLUME 6.7 fL (7.4-11.0); MONOCYTES # (AUTO) 0.8 x10^3/uL (0.3-0.8); NEUTROPHILS # (AUTO) 5.6 x10^3/uL (2.2-4.8); NEUTROPHILS % (AUTO) 66.7 % (42.0-75.0); PLATELET COUNT 347 X10^3/uL (150.0-450.0); RED BLOOD COUNT 4.17 X10^6/uL (4.7-6.0); RED CELL DISTRIBUTION WIDTH 13.9 % (11.6-16.5); WHITE BLOOD COUNT 8.4 X10^3/uL (3.6-10.0)
[2024-04-26 06:57] LABS: ALANINE AMINOTRANSFERASE 95 Units/L (12-78); ALBUMIN 3.6 g/dL (3.4-5.0); ALKALINE PHOSPHATASE 137 Units/L (46-116); ASPARTATE AMINO TRANSFERASE 45 Units/L (15-37); BLOOD UREA NITROGEN 17 mg/dL (7-18); CALCIUM 9.3 mg/dL (8.5-10.1); CARBON DIOXIDE 32.3 mmol/L (21-32); CHLORIDE 95 mmol/L (98-107); GLUCOSE 107 mg/dL (65-99); POTASSIUM 3.2 mmol/L (3.5-5.1); SODIUM 135 mmol/L (136-145); TOTAL PROTEIN 7.6 g/dL (6.4-8.2); eGFR NON BLACK RACES > 60 (>60)
[2024-04-26] MEDS ORDERED: CONSULT PHARMACY - POTASSIUM & MAGNESIUM XX SCH (08:00)
[2024-04-26] MEDS: OMNIPAQUE 350 mg/mL 100 mL BTL 100 ML ONE (08:51)
[2024-04-26] MEDS ORDERED: PULMICORT NEB TX 0.5 MG NEB SCH (09:00)
[2024-04-26] MEDS: NICOTINE PATCH TD SCH (09:09)
[2024-04-26] MEDS: TENORMIN PO SCH (09:11)
[2024-04-26] MEDS: CELEXA PO SCH (09:11)
[2024-04-26] MEDS: CHLORTHALIDONE PO SCH (09:12)
[2024-04-26] MEDS: NEURONTIN CAP 300 MG PO SCH (09:12)
[2024-04-26] MEDS: PROTONIX INJ 40 MG VIAL IVP SCH (09:14)
[2024-04-26] MEDS: NS + KCL 20 MEQ/L 1,000 ML IV SCH (09:22)
[2024-04-27 06:13] LABS: BASOPHILS % (AUTO) 0.7 % (0.2-1.0); EOSINOPHILS # (AUTO) 0.2 x10^3/uL (0.0-0.2); EOSINOPHILS % (AUTO) 3.7 % (0.9-2.9); HEMATOCRIT 37.1 % (42.0-54.0); HEMOGLOBIN 12.6 g/dL (13.5-18.0); LYMPHOCYTES # (AUTO) 1.9 X10^3/uL (1.3-2.9); LYMPHOCYTES % (AUTO) 31.7 % (21.0-51.0); MEAN CORPUSCULAR HEMOGLOBIN 34.8 pg (27.0-34.0); MEAN CORPUSCULAR HGB CONC 33.9 g/dL (33.0-35.0); MEAN CORPUSCULAR VOLUME 102.7 fL (80.0-100.0); MEAN PLATELET VOLUME 6.9 fL (7.4-11.0); MONOCYTES # (AUTO) 0.6 x10^3/uL (0.3-0.8); MONOCYTES % (AUTO) 9.1 % (0.0-13.0); NEUTROPHILS # (AUTO) 3.4 x10^3/uL (2.2-4.8); NEUTROPHILS % (AUTO) 54.8 % (42.0-75.0); PLATELET COUNT 238 X10^3/uL (150.0-450.0); RED BLOOD COUNT 3.61 X10^6/uL (4.7-6.0); RED CELL DISTRIBUTION WIDTH 13.9 % (11.6-16.5); WHITE BLOOD COUNT 6.1 X10^3/uL (3.6-10.0)
[2024-04-27 06:22] LABS: ALANINE AMINOTRANSFERASE 62 Units/L (12-78); ALBUMIN 3.2 g/dL (3.4-5.0); ALKALINE PHOSPHATASE 102 Units/L (46-116); AMYLASE 301 Units/L (25-115); ASPARTATE AMINO TRANSFERASE 29 Units/L (15-37); BLOOD UREA NITROGEN 20 mg/dL (7-18); CALCIUM 8.7 mg/dL (8.5-10.1); CARBON DIOXIDE 31.3 mmol/L (21-32); CHLORIDE 99 mmol/L (98-107); COR CA(FOR HYPOALB) 9.3 mg/dL (8.5-10.1); CREATININE 0.75 mg/dL (0.70-1.30); GLUCOSE 74 mg/dL (65-99); LIPASE 239 Units/L (16-77); MAGNESIUM 1.3 mg/dL (2.0-2.9); POTASSIUM 3.7 mmol/L (3.5-5.1); SODIUM 135 mmol/L (136-145); TOTAL PROTEIN 6.6 g/dL (6.4-8.2); eGFR NON BLACK RACES > 60 (>60)
[2024-04-27] MEDS ORDERED: CONSULT PHARMACY - POTASSIUM & MAGNESIUM XX SCH (07:00)
[2024-04-27] MEDS ORDERED: K-DUR TAB 20 MEQ PO ONE (07:58)
[2024-04-27] MEDS: K-DUR TAB 20 MEQ PO SCH (08:18)
[2024-04-27] MEDS: MAG-OX TAB ONE (08:19)
[2024-04-27] MEDS: MAG-OX TAB PO SCH (08:20)
[2024-04-27] MEDS: NS + KCL 20 MEQ/L 1,000 ML IV SCH (08:35)
[2024-04-27] MEDS: MVI INJ (ADULT) IV SCH (09:52)
[2024-04-27] MEDS: DILAUDID INJ IVP PRN (10:31)
[2024-04-28 06:00] LABS: BASOPHILS # (AUTO) 0.1 X10^3/uL (0.0-0.1); BASOPHILS % (AUTO) 1.5 % (0.2-1.0); EOSINOPHILS # (AUTO) 0.3 x10^3/uL (0.0-0.2); EOSINOPHILS % (AUTO) 6.3 % (0.9-2.9); HEMATOCRIT 35.1 % (42.0-54.0); HEMOGLOBIN 11.9 g/dL (13.5-18.0); LYMPHOCYTES # (AUTO) 1.3 X10^3/uL (1.3-2.9); LYMPHOCYTES % (AUTO) 28.9 % (21.0-51.0); MEAN CORPUSCULAR HEMOGLOBIN 34.7 pg (27.0-34.0); MEAN CORPUSCULAR HGB CONC 33.8 g/dL (33.0-35.0); MEAN CORPUSCULAR VOLUME 102.5 fL (80.0-100.0); MONOCYTES # (AUTO) 0.4 x10^3/uL (0.3-0.8); MONOCYTES % (AUTO) 8.6 % (0.0-13.0); NEUTROPHILS # (AUTO) 2.5 x10^3/uL (2.2-4.8); NEUTROPHILS % (AUTO) 54.7 % (42.0-75.0); PLATELET COUNT 250 X10^3/uL (150.0-450.0); RED BLOOD COUNT 3.42 X10^6/uL (4.7-6.0); RED CELL DISTRIBUTION WIDTH 13.6 % (11.6-16.5); WHITE BLOOD COUNT 4.7 X10^3/uL (3.6-10.0)
[2024-04-28 06:11] LABS: ALANINE AMINOTRANSFERASE 56 Units/L (12-78); ALBUMIN 3.2 g/dL (3.4-5.0); ALKALINE PHOSPHATASE 94 Units/L (46-116); ASPARTATE AMINO TRANSFERASE 34 Units/L (15-37); BLOOD UREA NITROGEN 8 mg/dL (7-18); CALCIUM 8.7 mg/dL (8.5-10.1); CARBON DIOXIDE 33.9 mmol/L (21-32); CHLORIDE 99 mmol/L (98-107); COR CA(FOR HYPOALB) 9.3 mg/dL (8.5-10.1); CREATININE 0.69 mg/dL (0.70-1.30); GLUCOSE 97 mg/dL (65-99); MAGNESIUM 1.1 mg/dL (2.0-2.9); POTASSIUM 3.9 mmol/L (3.5-5.1); SODIUM 134 mmol/L (136-145); TOTAL PROTEIN 6.4 g/dL (6.4-8.2); eGFR NON BLACK RACES > 60 (>60)
[2024-04-28 07:43] LABS: AMYLASE 248 Units/L (25-115); LIPASE 184 Units/L (16-77)
[2024-04-28] MEDS: MAGNESIUM SULFATE IV SCH (09:15)
[2024-04-28] MEDS: MVI IV SCH ×2 (09:15→13:35)
[2024-04-28] MEDS: NS IV SCH (09:15)
[2024-04-28] MEDS ORDERED: PHARMACY CONSULT - TPN XX SCH (11:00)
--- NOTE | 2024-04-28 12:55 | RAD ---
EXAM: CHEST, 1 VIEW HISTORY: PICC LINE PLACEMENT; COMPARISON: No relevant prior studies were available for comparison at the time of interpretation. TECHNIQUE: CHEST, 1 VIEW FINDINGS: Chest: Lines and tubes: Left upper extremity PICC is in satisfactory position Mediastinum: Cardiac and mediastinal shadow is within normal limits for size and contour. Pulmonary vessels: No pulmonary vascular congestion. Lung simmons: No suspicious airspace opacity. Pleura: No effusion. No pneumothorax. Bones and soft tissues: No acute osseous or soft tissue abnormality. IMPRESSION: 1. No acute cardiopulmonary abnormality THIS IS AN ELECTRONICALLY VERIFIED FINAL REPORT 04/28/2024 12:52 PM - Electronically signed by Remberto Issa MD
--- NOTE | 2024-04-28 13:02 | DR.PROGNOT ---
HOSPITAL PROGRESS NOTE Progress Note for Day of: Progress Note Date: 04/28/24 Chief Complaint Chief Complaint: Less abdominal pain today, no nausea or vomiting. Serum amylase and lipase are improving Upper GI series done yesterday revealed some narrowing of the second part of the duodenum with inflammatory changes consistent with peptic ulcer disease and pancreatitis. Evidence of chronic pancreatitis as well as PERC the CAT scan.. The situation was discussed in details with the patient and the plan is to proceed with placement of pic line to start him on TPN possible partial gastrectomy next week to treat the chronic peptic ulcer disease and partial gastric outlet obstruction.. Past Medical Family Social History Allergies: Allergies No Known Drug Allergies Allergy (Unknown, Verified 04/06/24 11:57) Onset Date: 12/04/2021 Review Of Systems ROS: No change since H&P Vital Signs Vital Signs: Vital Signs Temperature 97.9 F Pulse Rate [Right Radial] 74 Respiratory Rate 18 Respiratory Rate 18 Respiratory Rate 18 Respiratory Rate 18 Respiratory Rate 18 Blood Pressure [Right Arm] 114/62 O2 Sat by Pulse Oximetry 98 Physical Exam Oriented: Normal Eyes: Normal Nose: Normal Respiratory: Normal Cardiovascular: Normal GI:Auscultation: Normal GI:Palpation: Other (Moderate upper abdominal tenderness, bowel sounds present.) Speech Pattern: Clear and Appropriate Laboratory and Diagnostics 04/28/24 05:27 04/28/24 05:27 Labs: Laboratory WBC 4.7 X10^3/uL (3.6-10.0) 04/28/24 05:27 RBC 3.42 X10^6/uL (4.7-6.0) L 04/28/24 05:27 Hgb 11.9 g/dL (13.5-18.0) L 04/28/24 05:27 Hct 35.1 % (42.0-54.0) L 04/28/24 05:27 MCV 102.5 fL (80.0-100.0) H 04/28/24 05:27 MCH 34.7 pg (27.0-34.0) H 04/28/24 05:27 MCHC 33.8 g/dL (33.0-35.0) 04/28/24 05:27 RDW 13.6 % (11.6-16.5) 04/28/24 05:27 Plt Count 250 X10^3/uL (150.0-450.0) 04/28/24 05:27 MPV 7.0 fL (7.4-11.0) L 04/28/24 05:27 Neut % (Auto) 54.7 % (42.0-75.0) 04/28/24 05:27 Lymph % (Auto) 28.9 % (21.0-51.0) 04/28/24 05:27 [place] % (Auto) 8.6 % (0.0-13.0) 04/28/24 05:27 Eos % (Auto) 6.3 % (0.9-2.9) H 04/28/24 05:27 Baso % (Auto) 1.5 % (0.2-1.0) H 04/28/24 05:27 Neut # (Auto) 2.5 x10^3/uL (2.2-4.8) 04/28/24 05:27 Lymph # (Auto) 1.3 X10^3/uL (1.3-2.9) 04/28/24 05:27 [place] # (Auto) 0.4 x10^3/uL (0.3-0.8) 04/28/24 05:27 Eos # (Auto) 0.3 x10^3/uL (0.0-0.2) H 04/28/24 05:27 Baso # (Auto) 0.1 X10^3/uL (0.0-0.1) 04/28/24 05:27 Absolute Nucleated RBC 0.1 /100WBC 04/28/24 05:27 Sodium 134 mmol/L (136-145) L 04/28/24 05:27 Corrected Sodium TNP 04/28/24 05:27 Potassium 3.9 mmol/L (3.5-5.1) 04/28/24 05:27 Chloride 99 mmol/L (98-107) 04/28/24 05:27 Carbon Dioxide 33.9 mmol/L (21-32) H 04/28/24 05:27 BUN 8 mg/dL (7-18) 04/28/24 05:27 Creatinine 0.69 mg/dL (0.70-1.30) L 04/28/24 05:27 Est GFR (MDRD) Af Amer > 60 (>60) 04/28/24 05:27 Est GFR (MDRD) Non-Af > 60 (>60) 04/28/24 05:27 Glucose 97 mg/dL (65-99) 04/28/24 05:27 Calcium 8.7 mg/dL (8.5-10.1) 04/28/24 05:27 Corrected Calcium 9.3 mg/dL (8.5-10.1) 04/28/24 05:27 Magnesium 1.1 mg/dL (2.0-2.9) L 04/28/24 05:27 Total Bilirubin 0.40 mg/dL (0.2-1.0) 04/28/24 05:27 AST 34 Units/L (15-37) 04/28/24 05:27 ALT 56 Units/L (12-78) 04/28/24 05:27 Alkaline Phosphatase 94 Units/L (46-116) 04/28/24 05:27 Total Protein 6.4 g/dL (6.4-8.2) 04/28/24 05:27 Albumin 3.2 g/dL (3.4-5.0) L 04/28/24 05:27 Globulin 3.2 g/dL (2.5-4.5) 04/28/24 05:27 Albumin/Globulin Ratio 1.0 Ratio (1.1-2.1) L 04/28/24 05:27 Amylase 248 Units/L (25-115) H 04/28/24 05:35 Lipase 184 Units/L (16-77) H 04/28/24 05:35 Vitamin B12 983 pg/mL (193-986) 04/26/24 05:55 Folate 16.0 ng/mL (>8.6) 04/26/24 05:55 Assessment and Plan 1: Chronic relapsing pancreatitis. 2: Chronic peptic ulcer disease with partial gastric outlet obstruction. To start central TPN and possible gastrectomy next week. Problem Patient Problems: Patient Problems Pancreatitis (Acute) K85.90 Dehydration (Acute) E86.0
[2024-04-28] MEDS ORDERED: NovoLIN R (or HumuLIN R) SUBCUT PRN (13:11)
[2024-04-28] MEDS ORDERED: DEXTROSE 10% 1,000 ML IV PRN (13:11)
[2024-04-28] MEDS: [UNRECOGNIZED DRUG - OTHER] IV SCH (13:35)
[2024-04-28] MEDS: CLINIMIX IV SCH (13:35)
[2024-04-28 13:37] LABS: MAGNESIUM 1.2 mg/dL (2.0-2.9); PHOSPHORUS 2.6 mg/dL (2.6-4.7)
[2024-04-28] MEDS: DRUG FILTER EXTENSION SET ONE ×2 (13:43→14:30)
[2024-04-28] MEDS: NS + KCL 20 MEQ/L 1,000 ML IV SCH (14:35)
[2024-04-28 16:48] VITALS: BMI 16.5
[2024-04-29 05:42] LABS: EOSINOPHILS # (AUTO) 0.3 x10^3/uL (0.0-0.2); EOSINOPHILS % (AUTO) 6.8 % (0.9-2.9); LYMPHOCYTES # (AUTO) 1.4 X10^3/uL (1.3-2.9); LYMPHOCYTES % (AUTO) 30.5 % (21.0-51.0); MEAN CORPUSCULAR HEMOGLOBIN 35.1 pg (27.0-34.0); MEAN CORPUSCULAR HGB CONC 34.2 g/dL (33.0-35.0); MEAN CORPUSCULAR VOLUME 102.6 fL (80.0-100.0); MONOCYTES # (AUTO) 0.5 x10^3/uL (0.3-0.8); MONOCYTES % (AUTO) 10.1 % (0.0-13.0); NEUTROPHILS # (AUTO) 2.4 x10^3/uL (2.2-4.8); NEUTROPHILS % (AUTO) 51.6 % (42.0-75.0); PLATELET COUNT 235 X10^3/uL (150.0-450.0); RED BLOOD COUNT 3.41 X10^6/uL (4.7-6.0); RED CELL DISTRIBUTION WIDTH 13.3 % (11.6-16.5); WHITE BLOOD COUNT 4.6 X10^3/uL (3.6-10.0)
[2024-04-29 05:51] LABS: PREALBUMIN 19.8 mg/dL (18-35.7)
[2024-04-29 05:58] LABS: ALANINE AMINOTRANSFERASE 45 Units/L (12-78); ALBUMIN 3.2 g/dL (3.4-5.0); ALKALINE PHOSPHATASE 96 Units/L (46-116); ASPARTATE AMINO TRANSFERASE 22 Units/L (15-37); BLOOD UREA NITROGEN 8 mg/dL (7-18); CALCIUM 8.6 mg/dL (8.5-10.1); CARBON DIOXIDE 31.2 mmol/L (21-32); CHLORIDE 98 mmol/L (98-107); COR CA(FOR HYPOALB) 9.2 mg/dL (8.5-10.1); COR NA(FOR HYPERGLY) 134 mmol/L (136-145); CREATININE 0.62 mg/dL (0.70-1.30); GLUCOSE 137 mg/dL (65-99); POTASSIUM 3.7 mmol/L (3.5-5.1); SODIUM 133 mmol/L (136-145); TOTAL PROTEIN 6.5 g/dL (6.4-8.2); eGFR NON BLACK RACES > 60 (>60)
[2024-04-29] MEDS: CHECK PATCH XX SCH (09:28)
[2024-04-29 09:47] LABS: AMYLASE 182 Units/L (25-115); LIPASE 219 Units/L (16-77)
[2024-04-29] MEDS: K-DUR TAB 20 MEQ PO SCH (09:47)
--- NOTE | 2024-04-29 09:59 | DR.PROGNOT ---
HOSPITAL PROGRESS NOTE Progress Note for Day of: Progress Note Date: 04/29/24 Chief Complaint Chief Complaint: tolerating TPN with BS 136.. Less abdominal pain today, no nausea or vomiting. Serum amylase and lipase are improving, 181, 219 Upper GI series done yesterday revealed some narrowing of the second part of the duodenum with inflammatory changes consistent with peptic ulcer disease and pancreatitis. Evidence of chronic pancreatitis as well as PERC the CAT scan.. The situation was discussed in details with the patient ..the plan is to continue , TPN possible partial gastrectomy next week to treat the chronic peptic ulcer disease and partial gastric outlet obstruction.. Past Medical Family Social History Allergies: Allergies No Known Drug Allergies Allergy (Unknown, Verified 04/06/24 11:57) Onset Date: 12/04/2021 Review Of Systems ROS: No change since H&P Vital Signs Vital Signs: Vital Signs Temperature 98.0 F Temperature 97.7 F Pulse Rate [Right Radial] 73 Pulse Rate [Right Radial] 75 Respiratory Rate 20 Respiratory Rate 19 Respiratory Rate 21 Respiratory Rate 20 Respiratory Rate 18 Blood Pressure [Right Arm] 165/89 Blood Pressure [Right Arm] 100/63 Blood Pressure [Right Arm] 114/71 O2 Sat by Pulse Oximetry 97 O2 Sat by Pulse Oximetry 98 Physical Exam Oriented: Normal Eyes: Normal Nose: Normal Respiratory: Normal Cardiovascular: Normal GI:Auscultation: Normal GI:Palpation: Other (Moderate upper abdominal tenderness, bowel sounds present.) Speech Pattern: Clear and Appropriate Laboratory and Diagnostics 04/29/24 05:13 04/29/24 05:13 Labs: Laboratory WBC 4.6 X10^3/uL (3.6-10.0) 04/29/24 05:13 RBC 3.41 X10^6/uL (4.7-6.0) L 04/29/24 05:13 Hgb 12.0 g/dL (13.5-18.0) L 04/29/24 05:13 Hct 35.0 % (42.0-54.0) L 04/29/24 05:13 MCV 102.6 fL (80.0-100.0) H 04/29/24 05:13 MCH 35.1 pg (27.0-34.0) H 04/29/24 05:13 MCHC 34.2 g/dL (33.0-35.0) 04/29/24 05:13 RDW 13.3 % (11.6-16.5) 04/29/24 05:13 Plt Count 235 X10^3/uL (150.0-450.0) 04/29/24 05:13 MPV 7.0 fL (7.4-11.0) L 04/29/24 05:13 Neut % (Auto) 51.6 % (42.0-75.0) 04/29/24 05:13 Lymph % (Auto) 30.5 % (21.0-51.0) 04/29/24 05:13 [place] % (Auto) 10.1 % (0.0-13.0) 04/29/24 05:13 Eos % (Auto) 6.8 % (0.9-2.9) H 04/29/24 05:13 Baso % (Auto) 1.0 % (0.2-1.0) 04/29/24 05:13 Neut # (Auto) 2.4 x10^3/uL (2.2-4.8) 04/29/24 05:13 Lymph # (Auto) 1.4 X10^3/uL (1.3-2.9) 04/29/24 05:13 [place] # (Auto) 0.5 x10^3/uL (0.3-0.8) 04/29/24 05:13 Eos # (Auto) 0.3 x10^3/uL (0.0-0.2) H 04/29/24 05:13 Baso # (Auto) 0.0 X10^3/uL (0.0-0.1) 04/29/24 05:13 Absolute Nucleated RBC 0.3 /100WBC 04/29/24 05:13 Sodium 133 mmol/L (136-145) L 04/29/24 05:13 Corrected Sodium 134 mmol/L (136-145) L 04/29/24 05:13 Potassium 3.7 mmol/L (3.5-5.1) 04/29/24 05:13 Chloride 98 mmol/L (98-107) 04/29/24 05:13 Carbon Dioxide 31.2 mmol/L (21-32) 04/29/24 05:13 BUN 8 mg/dL (7-18) 04/29/24 05:13 Creatinine 0.62 mg/dL (0.70-1.30) L 04/29/24 05:13 Est GFR (MDRD) Af Amer > 60 (>60) 04/29/24 05:13 Est GFR (MDRD) Non-Af > 60 (>60) 04/29/24 05:13 Glucose 137 mg/dL (65-99) H 04/29/24 05:13 POC Glucose (mg/dL) 116 mg/dL (65-99) H 04/29/24 09:51 Calcium 8.6 mg/dL (8.5-10.1) 04/29/24 05:13 Corrected Calcium 9.2 mg/dL (8.5-10.1) 04/29/24 05:13 Phosphorus 2.6 mg/dL (2.6-4.7) 04/28/24 05:27 Magnesium 1.5 mg/dL (2.0-2.9) L 04/29/24 08:18 Total Bilirubin 0.30 mg/dL (0.2-1.0) 04/29/24 05:13 AST 22 Units/L (15-37) 04/29/24 05:13 ALT 45 Units/L (12-78) 04/29/24 05:13 Alkaline Phosphatase 96 Units/L (46-116) 04/29/24 05:13 Total Protein 6.5 g/dL (6.4-8.2) 04/29/24 05:13 Albumin 3.2 g/dL (3.4-5.0) L 04/29/24 05:13 Globulin 3.3 g/dL (2.5-4.5) 04/29/24 05:13 Albumin/Globulin Ratio 1.0 Ratio (1.1-2.1) L 04/29/24 05:13 Prealbumin 19.8 mg/dL (18-35.7) 04/29/24 05:13 Triglycerides 42 mg/dL (0-150) 04/28/24 05:27 Amylase 182 Units/L (25-115) H 04/29/24 05:13 Lipase 219 Units/L (16-77) H 04/29/24 05:13 Vitamin B12 983 pg/mL (193-986) 04/26/24 05:55 Folate 16.0 ng/mL (>8.6) 04/26/24 05:55 Assessment and Plan 1: Chronic and acute relapsing pancreatitis. 2: Chronic peptic ulcer disease with partial gastric outlet obstruction. To continue TPN and possible partial gastrectomy next week. Problem Patient Problems: Patient Problems Pancreatitis (Acute) K85.90 Dehydration (Acute) E86.0
[2024-04-29] MEDS: CLINIMIX 5 %/20 % 1,000 ML with MVI INJ (ADULT) 10 ML, MAGNESIUM SULFATE 50% INJ VIAL 2... IV SCH (10:15)
[2024-04-29] MEDS: CYTOTEC PO SCH (13:38)
[2024-04-29] MEDS: MILK OF MAGNESIA PO SCH (20:58)
[2024-04-29] MEDS: COLACE CAP 100 MG PO SCH (20:58)
[2024-04-30 05:53] LABS: ALANINE AMINOTRANSFERASE 169 Units/L (12-78); ALBUMIN 3.4 g/dL (3.4-5.0); ALKALINE PHOSPHATASE 217 Units/L (46-116); ASPARTATE AMINO TRANSFERASE 267 Units/L (15-37); BLOOD UREA NITROGEN 14 mg/dL (7-18); CALCIUM 9.2 mg/dL (8.5-10.1); CARBON DIOXIDE 31.9 mmol/L (21-32); CHLORIDE 98 mmol/L (98-107); CREATININE 0.65 mg/dL (0.70-1.30); GLUCOSE 91 mg/dL (65-99); POTASSIUM 4.1 mmol/L (3.5-5.1); SODIUM 135 mmol/L (136-145); TOTAL PROTEIN 6.9 g/dL (6.4-8.2); eGFR NON BLACK RACES > 60 (>60)
--- NOTE | 2024-04-30 09:02 | DR.PROGNOT ---
HOSPITAL PROGRESS NOTE Progress Note for Day of: Progress Note Date: 04/30/24 Chief Complaint Chief Complaint: tolerating TPN with BS 91. Less abdominal pain today, c/o nausea today , no vomiting Serum amylase and lipase are improving, 181, 219 Upper GI series done yesterday revealed some narrowing of the second part of the duodenum with inflammatory changes consistent with peptic ulcer disease and pancreatitis. Evidence of chronic pancreatitis as well as acute changes as per abdominal CT .. The situation was discussed in details with the patient and his ..the plan is to continue TPN , partial gastrectomy next week to treat the chronic peptic ulcer disease and partial gastric outlet obstruction.. Past Medical Family Social History Allergies: Allergies No Known Drug Allergies Allergy (Unknown, Verified 04/06/24 11:57) Onset Date: 12/04/2021 Review Of Systems ROS: No change since H&P Vital Signs Vital Signs: Vital Signs Temperature 98.6 F Pulse Rate [Right Radial] 75 Respiratory Rate 16 Respiratory Rate 16 Respiratory Rate 20 Respiratory Rate 18 Respiratory Rate 17 Respiratory Rate 21 Blood Pressure [Right Arm] 100/64 O2 Sat by Pulse Oximetry 98 Physical Exam Oriented: Normal Eyes: Normal Nose: Normal Respiratory: Normal Cardiovascular: Normal GI:Auscultation: Normal GI:Palpation: Other (Moderate upper abdominal tenderness, bowel sounds present.) Speech Pattern: Clear and Appropriate Laboratory and Diagnostics 04/29/24 05:13 04/30/24 04:15 Labs: Laboratory WBC 4.6 X10^3/uL (3.6-10.0) 04/29/24 05:13 RBC 3.41 X10^6/uL (4.7-6.0) L 04/29/24 05:13 Hgb 12.0 g/dL (13.5-18.0) L 04/29/24 05:13 Hct 35.0 % (42.0-54.0) L 04/29/24 05:13 MCV 102.6 fL (80.0-100.0) H 04/29/24 05:13 MCH 35.1 pg (27.0-34.0) H 04/29/24 05:13 MCHC 34.2 g/dL (33.0-35.0) 04/29/24 05:13 RDW 13.3 % (11.6-16.5) 04/29/24 05:13 Plt Count 235 X10^3/uL (150.0-450.0) 04/29/24 05:13 MPV 7.0 fL (7.4-11.0) L 04/29/24 05:13 Neut % (Auto) 51.6 % (42.0-75.0) 04/29/24 05:13 Lymph % (Auto) 30.5 % (21.0-51.0) 04/29/24 05:13 Emanuel % (Auto) 10.1 % (0.0-13.0) 04/29/24 05:13 Eos % (Auto) 6.8 % (0.9-2.9) H 04/29/24 05:13 Baso % (Auto) 1.0 % (0.2-1.0) 04/29/24 05:13 Neut # (Auto) 2.4 x10^3/uL (2.2-4.8) 04/29/24 05:13 Lymph # (Auto) 1.4 X10^3/uL (1.3-2.9) 04/29/24 05:13 Emanuel # (Auto) 0.5 x10^3/uL (0.3-0.8) 04/29/24 05:13 Eos # (Auto) 0.3 x10^3/uL (0.0-0.2) H 04/29/24 05:13 Baso # (Auto) 0.0 X10^3/uL (0.0-0.1) 04/29/24 05:13 Absolute Nucleated RBC 0.3 /100WBC 04/29/24 05:13 Sodium 135 mmol/L (136-145) L 04/30/24 04:15 Corrected Sodium TNP 04/30/24 04:15 Potassium 4.1 mmol/L (3.5-5.1) 04/30/24 04:15 Chloride 98 mmol/L (98-107) 04/30/24 04:15 Carbon Dioxide 31.9 mmol/L (21-32) 04/30/24 04:15 BUN 14 mg/dL (7-18) 04/30/24 04:15 Creatinine 0.65 mg/dL (0.70-1.30) L 04/30/24 04:15 Est GFR (MDRD) Af Amer > 60 (>60) 04/30/24 04:15 Est GFR (MDRD) Non-Af > 60 (>60) 04/30/24 04:15 Glucose 91 mg/dL (65-99) 04/30/24 04:15 POC Glucose (mg/dL) 116 mg/dL (65-99) H 04/29/24 09:51 Calcium 9.2 mg/dL (8.5-10.1) 04/30/24 04:15 Corrected Calcium TNP 04/30/24 04:15 Phosphorus 2.6 mg/dL (2.6-4.7) 04/28/24 05:27 Magnesium 1.5 mg/dL (2.0-2.9) L 04/29/24 08:18 Total Bilirubin 0.30 mg/dL (0.2-1.0) 04/30/24 04:15 AST 267 Units/L (15-37) H 04/30/24 04:15 ALT 169 Units/L (12-78) H 04/30/24 04:15 Alkaline Phosphatase 217 Units/L (46-116) H 04/30/24 04:15 Total Protein 6.9 g/dL (6.4-8.2) 04/30/24 04:15 Albumin 3.4 g/dL (3.4-5.0) 04/30/24 04:15 Globulin 3.5 g/dL (2.5-4.5) 04/30/24 04:15 Albumin/Globulin Ratio 1.0 Ratio (1.1-2.1) L 04/30/24 04:15 Prealbumin 19.8 mg/dL (18-35.7) 04/29/24 05:13 Triglycerides 42 mg/dL (0-150) 04/28/24 05:27 Amylase 182 Units/L (25-115) H 04/29/24 05:13 Lipase 219 Units/L (16-77) H 04/29/24 05:13 Vitamin B12 983 pg/mL (193-986) 04/26/24 05:55 Folate 16.0 ng/mL (>8.6) 04/26/24 05:55 Assessment and Plan 1: Chronic and acute relapsing pancreatitis. 2: Chronic peptic ulcer disease with partial gastric outlet obstruction. To continue TPN and possible partial gastrectomy next week. Problem Patient Problems: Patient Problems Pancreatitis (Acute) K85.90 Dehydration (Acute) E86.0
[2024-04-30] MEDS: LIDODERM 5% PATCH TD SCH (15:03)
[2024-04-30] MEDS: MAGNESIUM SULFATE 50% INJ VIAL ONE (19:10)
[2024-04-30] MEDS: DRUG FILTER EXTENSION SET ONE ×2 (19:10)
[2024-04-30] MEDS: CONSULT PHARMACY - POTASSIUM & MAGNESIUM XX SCH (19:10)
[2024-05-01 04:44] LABS: RED BLOOD COUNT 3.43 X10^6/uL (4.7-6.0)
[2024-05-01 04:48] LABS: BASOPHILS # (AUTO) 0.1 X10^3/uL (0.0-0.1); BASOPHILS % (AUTO) 2.4 % (0.2-1.0); EOSINOPHILS # (AUTO) 0.5 x10^3/uL (0.0-0.2); HEMATOCRIT 34.4 % (42.0-54.0); LYMPHOCYTES # (AUTO) 1.4 X10^3/uL (1.3-2.9); LYMPHOCYTES % (AUTO) 26.6 % (21.0-51.0); MEAN CORPUSCULAR HEMOGLOBIN 35.2 pg (27.0-34.0); MEAN CORPUSCULAR VOLUME 100.5 fL (80.0-100.0); MEAN PLATELET VOLUME 7.1 fL (7.4-11.0); MONOCYTES # (AUTO) 0.5 x10^3/uL (0.3-0.8); MONOCYTES % (AUTO) 10.3 % (0.0-13.0); NEUTROPHILS # (AUTO) 2.7 x10^3/uL (2.2-4.8); NEUTROPHILS % (AUTO) 51.7 % (42.0-75.0); PLATELET COUNT 223 X10^3/uL (150.0-450.0); RED CELL DISTRIBUTION WIDTH 13.7 % (11.6-16.5); WHITE BLOOD COUNT 5.2 X10^3/uL (3.6-10.0)
[2024-05-01 05:02] LABS: ALANINE AMINOTRANSFERASE 129 Units/L (12-78); ALBUMIN 3.2 g/dL (3.4-5.0); ALKALINE PHOSPHATASE 187 Units/L (46-116); AMYLASE 252 Units/L (25-115); ASPARTATE AMINO TRANSFERASE 76 Units/L (15-37); BLOOD UREA NITROGEN 18 mg/dL (7-18); CALCIUM 8.7 mg/dL (8.5-10.1); CARBON DIOXIDE 31.3 mmol/L (21-32); CHLORIDE 95 mmol/L (98-107); COR CA(FOR HYPOALB) 9.3 mg/dL (8.5-10.1); COR NA(FOR HYPERGLY) 132 mmol/L (136-145); CREATININE 0.68 mg/dL (0.70-1.30); GLUCOSE 137 mg/dL (65-99); POTASSIUM 3.7 mmol/L (3.5-5.1); SODIUM 131 mmol/L (136-145); TOTAL PROTEIN 6.6 g/dL (6.4-8.2); eGFR NON BLACK RACES > 60 (>60)
[2024-05-01 05:19] LABS: LIPASE 698 Units/L (16-77)
[2024-05-01] MEDS ORDERED: CONSULT PHARMACY - POTASSIUM & MAGNESIUM XX SCH ×2 (06:00)
[2024-05-01] MEDS: LR 1,000 ML IV 1,000 ML IV ONE (08:41)
[2024-05-01] MEDS ORDERED: MAG-OX TAB PO SCH (09:00)
[2024-05-01] MEDS ORDERED: K-DUR TAB 20 MEQ PO SCH (09:00)
[2024-05-01] MEDS: MARCAINE 0.25% INJ ONE ×2 (09:11→09:17)
[2024-05-01] MEDS: ANCEF VIAL 1 GRAM ONE (09:13)
[2024-05-01] MEDS: NS 100 ML IV 100 ML ONE (09:13)
[2024-05-01] MEDS: NAROPIN EPIDURAL 0.2% 0 ML ONE (09:15)
[2024-05-01] MEDS: ADRENALINE CHL INJ ONE ×2 (09:17→10:41)
[2024-05-01] MEDS ORDERED: STERILE WATER IRRIGATION IR ONE ×2 (09:22→09:26)
[2024-05-01] MEDS: VERSED ONE (09:24)
[2024-05-01] MEDS: PEPCID 20 MG VIAL ONE (09:24)
[2024-05-01] MEDS: ZOFRAN INJ 4 MG VIAL ONE (09:24)
[2024-05-01] MEDS ORDERED: ULTANE GAS IN ONE (09:24)
[2024-05-01] MEDS: DIPRIVAN VIAL 20 ML ONE (09:24)
[2024-05-01] MEDS: FENTANYL VIAL INJ 100 mcg ONE (09:24)
[2024-05-01] MEDS: POLYMYXIN B SULFATE ONE ×2 (09:43→11:09)
[2024-05-01] MEDS: LR 1,000 ML IV 2,000 ML IV ONE (10:46)
[2024-05-01] MEDS: BRIDION ONE (10:59)
[2024-05-01] MEDS ORDERED: BUPIVACAINE IV NR (12:00)
[2024-05-01] MEDS ORDERED: NS IV NR (12:00)
[2024-05-01] MEDS: EPHEDRINE SULFATE INJ ONE (12:01)
[2024-05-01] MEDS ORDERED: REGLAN INJ 10 MG VIAL IVP PRN (13:14)
[2024-05-01] MEDS ORDERED: BARHEMSYS INJ IVP PRN (13:14)
[2024-05-01] MEDS ORDERED: ZOFRAN INJ 4 MG VIAL IVP PRN (13:14)
[2024-05-01] MEDS ORDERED: DILAUDID INJ IVP PRN (13:14)
[2024-05-01] MEDS ORDERED: BENADRYL INJ 50 MG VIAL IVP PRN (13:14)
[2024-05-01] MEDS: NS IJ NR (13:20)
[2024-05-01] MEDS: BUPIVACAINE IJ NR (13:20)
[2024-05-01] MEDS: ZOSYN VIAL 3.375 GRAMS 3.375 G in NS 100 ML IV 100 ML IV SCH (14:11)
[2024-05-01] MEDS: DILAUDID INJ IVP PRN (14:11)
[2024-05-01 14:14] LABS: MAGNESIUM 1.2 mg/dL (2.0-2.9); PHOSPHORUS 1.2 mg/dL (2.6-4.7)
[2024-05-01] MEDS: NS + KCL 40 MEQ/L 1,000 ML IV SCH (16:03)
[2024-05-01] MEDS: MVI IV SCH (16:03)
[2024-05-01] MEDS: [UNRECOGNIZED DRUG - OTHER] IV SCH (16:03)
[2024-05-01] MEDS: CLINIMIX IV SCH (16:03)
[2024-05-01] MEDS: MAGNESIUM SULFATE 1 GRAM/100 mL PREMIX 1 G/100 ML BAG IV SCH (17:10)
[2024-05-01] MEDS: PROTONIX INJ 40 MG VIAL IVP SCH (22:36)
[2024-05-02] MEDS: PHENERGAN TAB 25 MG PO PRN (04:31)
[2024-05-02 06:13] LABS: BASOPHILS % (AUTO) 0.2 % (0.2-1.0); EOSINOPHILS % (AUTO) 0.1 % (0.9-2.9); HEMATOCRIT 34.3 % (42.0-54.0); LYMPHOCYTES # (AUTO) 0.9 X10^3/uL (1.3-2.9); LYMPHOCYTES % (AUTO) 8.4 % (21.0-51.0); MEAN CORPUSCULAR HGB CONC 34.9 g/dL (33.0-35.0); MEAN CORPUSCULAR VOLUME 100.3 fL (80.0-100.0); MEAN PLATELET VOLUME 7.3 fL (7.4-11.0); MONOCYTES % (AUTO) 9.1 % (0.0-13.0); NEUTROPHILS % (AUTO) 82.2 % (42.0-75.0); PLATELET COUNT 260 X10^3/uL (150.0-450.0); RED BLOOD COUNT 3.42 X10^6/uL (4.7-6.0); RED CELL DISTRIBUTION WIDTH 13.4 % (11.6-16.5); WHITE BLOOD COUNT 10.9 X10^3/uL (3.6-10.0)
[2024-05-02 06:35] LABS: ALBUMIN 2.9 g/dL (3.4-5.0); BLOOD UREA NITROGEN 14 mg/dL (7-18); CALCIUM 8.4 mg/dL (8.5-10.1); CARBON DIOXIDE 29.6 mmol/L (21-32); CHLORIDE 93 mmol/L (98-107); COR CA(FOR HYPOALB) 9.3 mg/dL (8.5-10.1); COR NA(FOR HYPERGLY) 127 mmol/L (136-145); CREATININE 0.58 mg/dL (0.70-1.30); GLUCOSE 154 mg/dL (65-99); POTASSIUM 3.4 mmol/L (3.5-5.1); SODIUM 126 mmol/L (136-145); eGFR NON BLACK RACES > 60 (>60)
[2024-05-02 06:58] LABS: ALANINE AMINOTRANSFERASE 83 Units/L (12-78); ALKALINE PHOSPHATASE 142 Units/L (46-116); AMYLASE 147 Units/L (25-115); ASPARTATE AMINO TRANSFERASE 45 Units/L (15-37); TOTAL PROTEIN 6.6 g/dL (6.4-8.2)
[2024-05-02] MEDS ORDERED: CHLORASEPTIC SPRAY MT PRN (07:50)
[2024-05-02] MEDS ORDERED: DILAUDID INJ ONE (07:56)
[2024-05-02 08:03] LABS: LIPASE 343 Units/L (16-77)
[2024-05-02] MEDS ORDERED: ATIVAN TAB 1 MG PO PRN (08:06)
[2024-05-02] MEDS: DILAUDID INJ IVP PRN (08:14)
[2024-05-02] MEDS: ATIVAN INJ 2 MG VIAL ONE (08:35)
[2024-05-02] MEDS ORDERED: CONSULT PHARMACY - POTASSIUM & MAGNESIUM XX SCH (09:00)
--- NOTE | 2024-05-02 10:42 | DR.PROGNOT ---
HOSPITAL PROGRESS NOTE Progress Note for Day of: Progress Note Date: 05/02/24 Chief Complaint Chief Complaint: Day 1 status post laparotomy and partial gastrectomy Complaining of incisional pain and severe anxiety. Patient pulled his NG tube out .. CBC is normal and his liver function test, amylase lipase are coming down. Minimal drainage in CONRAD.. Past Medical Family Social History Allergies: Allergies No Known Drug Allergies Allergy (Unknown, Verified 04/06/24 11:57) Onset Date: 12/04/2021 Review Of Systems ROS: No change since H&P Vital Signs Vital Signs: Vital Signs Temperature 97.7 F Pulse Rate [Right Radial] 88 Respiratory Rate 18 Respiratory Rate 18 Blood Pressure [Right Arm] 150/79 O2 Sat by Pulse Oximetry 100 Physical Exam Oriented: Normal Eyes: Normal Nose: Normal Respiratory: Normal Cardiovascular: Normal GI:Auscultation: Normal GI:Palpation: Other (Moderate upper abdominal tenderness, bowel sounds present.) Mood Description: Calm Speech Pattern: Clear and Appropriate Laboratory and Diagnostics 05/02/24 05:49 05/02/24 05:49 Labs: Laboratory WBC 10.9 X10^3/uL (3.6-10.0) H 05/02/24 05:49 RBC 3.42 X10^6/uL (4.7-6.0) L 05/02/24 05:49 Hgb 12.0 g/dL (13.5-18.0) L 05/02/24 05:49 Hct 34.3 % (42.0-54.0) L 05/02/24 05:49 MCV 100.3 fL (80.0-100.0) H 05/02/24 05:49 MCH 35.0 pg (27.0-34.0) H 05/02/24 05:49 MCHC 34.9 g/dL (33.0-35.0) 05/02/24 05:49 RDW 13.4 % (11.6-16.5) 05/02/24 05:49 Plt Count 260 X10^3/uL (150.0-450.0) 05/02/24 05:49 MPV 7.3 fL (7.4-11.0) L 05/02/24 05:49 Neut % (Auto) 82.2 % (42.0-75.0) H 05/02/24 05:49 Lymph % (Auto) 8.4 % (21.0-51.0) L 05/02/24 05:49 Bond % (Auto) 9.1 % (0.0-13.0) 05/02/24 05:49 Eos % (Auto) 0.1 % (0.9-2.9) L 05/02/24 05:49 Baso % (Auto) 0.2 % (0.2-1.0) 05/02/24 05:49 Neut # (Auto) 9.0 x10^3/uL (2.2-4.8) H 05/02/24 05:49 Lymph # (Auto) 0.9 X10^3/uL (1.3-2.9) L 05/02/24 05:49 Bond # (Auto) 1.0 x10^3/uL (0.3-0.8) H 05/02/24 05:49 Eos # (Auto) 0.0 x10^3/uL (0.0-0.2) 05/02/24 05:49 Baso # (Auto) 0.0 X10^3/uL (0.0-0.1) 05/02/24 05:49 Absolute Nucleated RBC 0.0 /100WBC 05/02/24 05:49 Sodium 126 mmol/L (136-145) L 05/02/24 05:49 Corrected Sodium 127 mmol/L (136-145) L 05/02/24 05:49 Potassium 3.4 mmol/L (3.5-5.1) L 05/02/24 05:49 Chloride 93 mmol/L (98-107) L 05/02/24 05:49 Carbon Dioxide 29.6 mmol/L (21-32) 05/02/24 05:49 BUN 14 mg/dL (7-18) 05/02/24 05:49 Creatinine 0.58 mg/dL (0.70-1.30) L 05/02/24 05:49 Est GFR (MDRD) Af Amer > 60 (>60) 05/02/24 05:49 Est GFR (MDRD) Non-Af > 60 (>60) 05/02/24 05:49 Glucose 154 mg/dL (65-99) H 05/02/24 05:49 POC Glucose (mg/dL) 160 mg/dL (65-99) H 05/02/24 04:24 Calcium 8.4 mg/dL (8.5-10.1) L 05/02/24 05:49 Corrected Calcium 9.3 mg/dL (8.5-10.1) 05/02/24 05:49 Phosphorus 1.2 mg/dL (2.6-4.7) L 05/01/24 13:55 Magnesium 1.8 mg/dL (2.0-2.9) L 05/02/24 05:49 Total Bilirubin 0.30 mg/dL (0.2-1.0) 05/01/24 04:15 AST 45 Units/L (15-37) H 05/02/24 05:49 ALT 83 Units/L (12-78) H 05/02/24 05:49 Alkaline Phosphatase 142 Units/L (46-116) H 05/02/24 05:49 Total Protein 6.6 g/dL (6.4-8.2) 05/02/24 05:49 Albumin 2.9 g/dL (3.4-5.0) L 05/02/24 05:49 Globulin 3.7 g/dL (2.5-4.5) 05/02/24 05:49 Albumin/Globulin Ratio 0.8 Ratio (1.1-2.1) L 05/02/24 05:49 Prealbumin 19.8 mg/dL (18-35.7) 04/29/24 05:13 Triglycerides 30 mg/dL (0-150) 05/01/24 13:55 Amylase 147 Units/L (25-115) H 05/02/24 05:49 Lipase 343 Units/L (16-77) H 05/02/24 05:49 Carcinoembryonic Ag 2.0 ng/mL (<=3.8) 04/28/24 05:27 CA 19-9 Antigen 42 U/mL (<=35) H 04/28/24 05:27 Vitamin B12 983 pg/mL (193-986) 04/26/24 05:55 Folate 16.0 ng/mL (>8.6) 04/26/24 05:55 Assessment and Plan 1: Status post partial gastrectomy day 1. To keep him on same TPN, pain and anxiety management.. Problem Patient Problems: Patient Problems Pancreatitis (Acute) K85.90 Dehydration (Acute) E86.0
[2024-05-02] MEDS: DRUG FILTER EXTENSION SET ONE (12:49)
[2024-05-02] MEDS: [UNRECOGNIZED DRUG - OTHER] IV SCH (12:49)
[2024-05-02] MEDS: CLINIMIX IV SCH (12:49)
[2024-05-02] MEDS: MVI IV SCH (12:49)
[2024-05-02] MEDS: ALPRAZOLAM ODT PO PRN (18:28)
[2024-05-02] MEDS: HALDOL INJ IM PRN (23:22)
[2024-05-03] MEDS: NS 250 ML IV 25 ML IV PRN (05:32)
[2024-05-03 06:25] LABS: BASOPHILS % (AUTO) 0.4 % (0.2-1.0); EOSINOPHILS # (AUTO) 0.2 x10^3/uL (0.0-0.2); EOSINOPHILS % (AUTO) 1.2 % (0.9-2.9); HEMATOCRIT 35.2 % (42.0-54.0); HEMOGLOBIN 11.9 g/dL (13.5-18.0); LYMPHOCYTES # (AUTO) 1.7 X10^3/uL (1.3-2.9); LYMPHOCYTES % (AUTO) 13.8 % (21.0-51.0); MEAN CORPUSCULAR HEMOGLOBIN 34.4 pg (27.0-34.0); MEAN CORPUSCULAR HGB CONC 33.8 g/dL (33.0-35.0); MEAN CORPUSCULAR VOLUME 101.8 fL (80.0-100.0); MEAN PLATELET VOLUME 7.7 fL (7.4-11.0); MONOCYTES # (AUTO) 1.6 x10^3/uL (0.3-0.8); MONOCYTES % (AUTO) 12.8 % (0.0-13.0); NEUTROPHILS # (AUTO) 9.1 x10^3/uL (2.2-4.8); NEUTROPHILS % (AUTO) 71.8 % (42.0-75.0); PLATELET COUNT 258 X10^3/uL (150.0-450.0); RED BLOOD COUNT 3.46 X10^6/uL (4.7-6.0); RED CELL DISTRIBUTION WIDTH 13.4 % (11.6-16.5); WHITE BLOOD COUNT 12.7 X10^3/uL (3.6-10.0)
[2024-05-03 07:02] LABS: POTASSIUM 3.8 mmol/L (3.5-5.1); SODIUM 130 mmol/L (136-145)
[2024-05-03 07:03] LABS: CARBON DIOXIDE 29.2 mmol/L (21-32); CHLORIDE 96 mmol/L (98-107)
[2024-05-03 07:12] LABS: BLOOD UREA NITROGEN 16 mg/dL (7-18); CALCIUM 8.8 mg/dL (8.5-10.1); CREATININE 0.69 mg/dL (0.70-1.30); GLUCOSE 103 mg/dL (65-99); eGFR NON BLACK RACES > 60 (>60)
[2024-05-03 09:19] LABS: ALANINE AMINOTRANSFERASE 65 Units/L (12-78); ALBUMIN 2.9 g/dL (3.4-5.0); ALKALINE PHOSPHATASE 117 Units/L (46-116); ASPARTATE AMINO TRANSFERASE 45 Units/L (15-37); COR CA(FOR HYPOALB) 9.7 mg/dL (8.5-10.1); TOTAL PROTEIN 6.9 g/dL (6.4-8.2)
--- NOTE | 2024-05-03 16:35 | DR.PROGNOT ---
HOSPITAL PROGRESS NOTE Progress Note for Day of: Progress Note Date: 05/03/24 Chief Complaint Chief Complaint: Day 2 status post laparotomy and partial gastrectomy Doing much better today with less pain and less anxiety. Urine output is good, will DC the Zafar catheter later on today. Mild serosanguineous drainage and the CONRAD. White count is 12.7. Electrolytes are normal, liver function test are almost normal. Amylase and lipase from yesterday were coming down. Patient is afebrile with a clear lung field. Past Medical Family Social History Allergies: Allergies No Known Drug Allergies Allergy (Unknown, Verified 04/06/24 11:57) Onset Date: 12/04/2021 Review Of Systems ROS: No change since H&P Vital Signs Vital Signs: Vital Signs Respiratory Rate 20 Respiratory Rate 20 Respiratory Rate 20 Physical Exam Oriented: Normal Eyes: Normal Nose: Normal Respiratory: Normal Cardiovascular: Normal GI:Auscultation: Normal GI:Palpation: Other (Moderate upper abdominal tenderness, bowel sounds present.) Mood Description: Calm Speech Pattern: Clear and Appropriate Laboratory and Diagnostics 05/03/24 05:44 05/03/24 05:44 Labs: Laboratory WBC 12.7 X10^3/uL (3.6-10.0) H 05/03/24 05:44 RBC 3.46 X10^6/uL (4.7-6.0) L 05/03/24 05:44 Hgb 11.9 g/dL (13.5-18.0) L 05/03/24 05:44 Hct 35.2 % (42.0-54.0) L 05/03/24 05:44 MCV 101.8 fL (80.0-100.0) H 05/03/24 05:44 MCH 34.4 pg (27.0-34.0) H 05/03/24 05:44 MCHC 33.8 g/dL (33.0-35.0) 05/03/24 05:44 RDW 13.4 % (11.6-16.5) 05/03/24 05:44 Plt Count 258 X10^3/uL (150.0-450.0) 05/03/24 05:44 MPV 7.7 fL (7.4-11.0) 05/03/24 05:44 Neut % (Auto) 71.8 % (42.0-75.0) 05/03/24 05:44 Lymph % (Auto) 13.8 % (21.0-51.0) L 05/03/24 05:44 [place] % (Auto) 12.8 % (0.0-13.0) 05/03/24 05:44 Eos % (Auto) 1.2 % (0.9-2.9) 05/03/24 05:44 Baso % (Auto) 0.4 % (0.2-1.0) 05/03/24 05:44 Neut # (Auto) 9.1 x10^3/uL (2.2-4.8) H 05/03/24 05:44 Lymph # (Auto) 1.7 X10^3/uL (1.3-2.9) 05/03/24 05:44 [place] # (Auto) 1.6 x10^3/uL (0.3-0.8) H 05/03/24 05:44 Eos # (Auto) 0.2 x10^3/uL (0.0-0.2) 05/03/24 05:44 Baso # (Auto) 0.0 X10^3/uL (0.0-0.1) 05/03/24 05:44 Absolute Nucleated RBC 0.0 /100WBC 05/03/24 05:44 Sodium 130 mmol/L (136-145) L 05/03/24 05:44 Corrected Sodium TNP 05/03/24 05:44 Potassium 3.8 mmol/L (3.5-5.1) 05/03/24 05:44 Chloride 96 mmol/L (98-107) L 05/03/24 05:44 Carbon Dioxide 29.2 mmol/L (21-32) 05/03/24 05:44 BUN 16 mg/dL (7-18) 05/03/24 05:44 Creatinine 0.69 mg/dL (0.70-1.30) L 05/03/24 05:44 Est GFR (MDRD) Af Amer > 60 (>60) 05/03/24 05:44 Est GFR (MDRD) Non-Af > 60 (>60) 05/03/24 05:44 Glucose 103 mg/dL (65-99) H 05/03/24 05:44 POC Glucose (mg/dL) 112 mg/dL (65-99) H 05/03/24 14:02 Calcium 8.8 mg/dL (8.5-10.1) 05/03/24 05:44 Corrected Calcium 9.7 mg/dL (8.5-10.1) 05/03/24 05:44 Phosphorus 1.2 mg/dL (2.6-4.7) L 05/01/24 13:55 Magnesium 1.8 mg/dL (2.0-2.9) L 05/02/24 05:49 Total Bilirubin 0.40 mg/dL (0.2-1.0) 05/03/24 05:44 AST 45 Units/L (15-37) H 05/03/24 05:44 ALT 65 Units/L (12-78) 05/03/24 05:44 Alkaline Phosphatase 117 Units/L (46-116) H 05/03/24 05:44 Total Protein 6.9 g/dL (6.4-8.2) 05/03/24 05:44 Albumin 2.9 g/dL (3.4-5.0) L 05/03/24 05:44 Globulin 4.0 g/dL (2.5-4.5) 05/03/24 05:44 Albumin/Globulin Ratio 0.7 Ratio (1.1-2.1) L 05/03/24 05:44 Prealbumin 19.8 mg/dL (18-35.7) 04/29/24 05:13 Triglycerides 30 mg/dL (0-150) 05/01/24 13:55 Amylase 147 Units/L (25-115) H 05/02/24 05:49 Lipase 343 Units/L (16-77) H 05/02/24 05:49 Carcinoembryonic Ag 2.0 ng/mL (<=3.8) 04/28/24 05:27 CA 19-9 Antigen 42 U/mL (<=35) H 04/28/24 05:27 Thiamine 109 nmol/L (70-180) 04/27/24 10:30 Vitamin B12 983 pg/mL (193-986) 04/26/24 05:55 Folate 16.0 ng/mL (>8.6) 04/26/24 05:55 Assessment and Plan 1: Status post partial gastrectomy day 2. To keep him on same TPN, pain and anxiety management.. Out of bed, DVT prophylaxis, incentive spirometer 2: Recurrent pancreatitis secondary to alcohol abuse. Will start patient on water and advance diet slowly in a.m. Problem Patient Problems: Patient Problems Pancreatitis (Acute) K85.90 Dehydration (Acute) E86.0
[2024-05-04 06:43] LABS: BASOPHILS % (AUTO) 0.5 % (0.2-1.0); EOSINOPHILS # (AUTO) 0.3 x10^3/uL (0.0-0.2); HEMATOCRIT 32.1 % (42.0-54.0); LYMPHOCYTES # (AUTO) 1.7 X10^3/uL (1.3-2.9); LYMPHOCYTES % (AUTO) 19.4 % (21.0-51.0); MEAN CORPUSCULAR HEMOGLOBIN 34.7 pg (27.0-34.0); MEAN CORPUSCULAR HGB CONC 34.3 g/dL (33.0-35.0); MEAN CORPUSCULAR VOLUME 101.2 fL (80.0-100.0); MONOCYTES # (AUTO) 1.2 x10^3/uL (0.3-0.8); MONOCYTES % (AUTO) 14.4 % (0.0-13.0); NEUTROPHILS # (AUTO) 5.2 x10^3/uL (2.2-4.8); NEUTROPHILS % (AUTO) 61.7 % (42.0-75.0); PLATELET COUNT 264 X10^3/uL (150.0-450.0); RED BLOOD COUNT 3.17 X10^6/uL (4.7-6.0); RED CELL DISTRIBUTION WIDTH 13.4 % (11.6-16.5); WHITE BLOOD COUNT 8.5 X10^3/uL (3.6-10.0)
[2024-05-04 06:53] LABS: ALANINE AMINOTRANSFERASE 47 Units/L (12-78); ALBUMIN 2.6 g/dL (3.4-5.0); ALKALINE PHOSPHATASE 114 Units/L (46-116); ASPARTATE AMINO TRANSFERASE 34 Units/L (15-37); BLOOD UREA NITROGEN 18 mg/dL (7-18); CALCIUM 8.7 mg/dL (8.5-10.1); CARBON DIOXIDE 27.9 mmol/L (21-32); CHLORIDE 96 mmol/L (98-107); COR CA(FOR HYPOALB) 9.8 mg/dL (8.5-10.1); COR NA(FOR HYPERGLY) 130 mmol/L (136-145); CREATININE 0.63 mg/dL (0.70-1.30); GLUCOSE 113 mg/dL (65-99); POTASSIUM 3.3 mmol/L (3.5-5.1); SODIUM 130 mmol/L (136-145); TOTAL PROTEIN 6.3 g/dL (6.4-8.2); eGFR NON BLACK RACES > 60 (>60)
[2024-05-04] MEDS: DRUG FILTER EXTENSION SET ONE ×3 (07:44→13:52)
--- NOTE | 2024-05-04 08:33 | DR.PROGNOT ---
HOSPITAL PROGRESS NOTE Progress Note for Day of: Progress Note Date: 05/04/24 Chief Complaint Chief Complaint: Day 3 status post laparotomy and partial gastrectomy Doing much better today with less pain and less anxiety. Urine output is good, Mild serosanguineous drainage and the CONRAD, to removed today.. White count is 12.7. Electrolytes are normal, liver function test are almost normal. Amylase and lipase from yesterday were coming down. Patient is afebrile with a clear lung field. To start on full liquid diet, possible discharge in the morning. Past Medical Family Social History Allergies: Allergies No Known Drug Allergies Allergy (Unknown, Verified 04/06/24 11:57) Onset Date: 12/04/2021 Review Of Systems ROS: No change since H&P Vital Signs Vital Signs: Vital Signs Temperature 97.7 F Pulse Rate [Right Radial] 95 Respiratory Rate 20 Respiratory Rate 20 Respiratory Rate 22 Respiratory Rate 18 Blood Pressure [Right Arm] 105/61 O2 Sat by Pulse Oximetry 100 Physical Exam Oriented: Normal Eyes: Normal Nose: Normal Respiratory: Normal Cardiovascular: Normal GI:Auscultation: Normal GI:Palpation: Other (Moderate upper abdominal tenderness, bowel sounds present.) Mood Description: Calm Speech Pattern: Clear and Appropriate Laboratory and Diagnostics 05/04/24 05:25 05/04/24 05:25 Labs: Laboratory WBC 8.5 X10^3/uL (3.6-10.0) 05/04/24 05:25 RBC 3.17 X10^6/uL (4.7-6.0) L 05/04/24 05:25 Hgb 11.0 g/dL (13.5-18.0) L 05/04/24 05:25 Hct 32.1 % (42.0-54.0) L 05/04/24 05:25 MCV 101.2 fL (80.0-100.0) H 05/04/24 05:25 MCH 34.7 pg (27.0-34.0) H 05/04/24 05:25 MCHC 34.3 g/dL (33.0-35.0) 05/04/24 05:25 RDW 13.4 % (11.6-16.5) 05/04/24 05:25 Plt Count 264 X10^3/uL (150.0-450.0) 05/04/24 05:25 MPV 8.0 fL (7.4-11.0) 05/04/24 05:25 Neut % (Auto) 61.7 % (42.0-75.0) 05/04/24 05:25 Lymph % (Auto) 19.4 % (21.0-51.0) L 05/04/24 05:25 Harmon % (Auto) 14.4 % (0.0-13.0) H 05/04/24 05:25 Eos % (Auto) 4.0 % (0.9-2.9) H 05/04/24 05:25 Baso % (Auto) 0.5 % (0.2-1.0) 05/04/24 05:25 Neut # (Auto) 5.2 x10^3/uL (2.2-4.8) H 05/04/24 05:25 Lymph # (Auto) 1.7 X10^3/uL (1.3-2.9) 05/04/24 05:25 Harmon # (Auto) 1.2 x10^3/uL (0.3-0.8) H 05/04/24 05:25 Eos # (Auto) 0.3 x10^3/uL (0.0-0.2) H 05/04/24 05:25 Baso # (Auto) 0.0 X10^3/uL (0.0-0.1) 05/04/24 05:25 Absolute Nucleated RBC 0.0 /100WBC 05/04/24 05:25 Sodium 130 mmol/L (136-145) L 05/04/24 05:25 Corrected Sodium 130 mmol/L (136-145) L 05/04/24 05:25 Potassium 3.3 mmol/L (3.5-5.1) L 05/04/24 05:25 Chloride 96 mmol/L (98-107) L 05/04/24 05:25 Carbon Dioxide 27.9 mmol/L (21-32) 05/04/24 05:25 BUN 18 mg/dL (7-18) 05/04/24 05:25 Creatinine 0.63 mg/dL (0.70-1.30) L 05/04/24 05:25 Est GFR (MDRD) Af Amer > 60 (>60) 05/04/24 05:25 Est GFR (MDRD) Non-Af > 60 (>60) 05/04/24 05:25 Glucose 113 mg/dL (65-99) H 05/04/24 05:25 POC Glucose (mg/dL) 125 mg/dL (65-99) H 05/04/24 03:15 Calcium 8.7 mg/dL (8.5-10.1) 05/04/24 05:25 Corrected Calcium 9.8 mg/dL (8.5-10.1) 05/04/24 05:25 Phosphorus 1.2 mg/dL (2.6-4.7) L 05/01/24 13:55 Magnesium 1.8 mg/dL (2.0-2.9) L 05/02/24 05:49 Total Bilirubin 0.40 mg/dL (0.2-1.0) 05/04/24 05:25 AST 34 Units/L (15-37) 05/04/24 05:25 ALT 47 Units/L (12-78) 05/04/24 05:25 Alkaline Phosphatase 114 Units/L (46-116) 05/04/24 05:25 Total Protein 6.3 g/dL (6.4-8.2) L 05/04/24 05:25 Albumin 2.6 g/dL (3.4-5.0) L 05/04/24 05:25 Globulin 3.7 g/dL (2.5-4.5) 05/04/24 05:25 Albumin/Globulin Ratio 0.7 Ratio (1.1-2.1) L 05/04/24 05:25 Prealbumin 19.8 mg/dL (18-35.7) 04/29/24 05:13 Triglycerides 30 mg/dL (0-150) 05/01/24 13:55 Amylase 147 Units/L (25-115) H 05/02/24 05:49 Lipase 343 Units/L (16-77) H 05/02/24 05:49 Carcinoembryonic Ag 2.0 ng/mL (<=3.8) 04/28/24 05:27 CA 19-9 Antigen 42 U/mL (<=35) H 04/28/24 05:27 Thiamine 109 nmol/L (70-180) 04/27/24 10:30 Vitamin B12 983 pg/mL (193-986) 04/26/24 05:55 Folate 16.0 ng/mL (>8.6) 04/26/24 05:55 Assessment and Plan 1: Status post partial gastrectomy day 3. To keep him on same TPN, pain and anxiety management.. Out of bed, DVT prophylaxis, incentive spirometer, full liquid diet. 2: Recurrent pancreatitis secondary to alcohol abuse. Will start patient on full liquid. Problem Patient Problems: Patient Problems Pancreatitis (Acute) K85.90 Dehydration (Acute) E86.0
[2024-05-04] MEDS: NS 1,000 ML IV 1,000 ML IV SCH (09:21)
[2024-05-04] MEDS: [UNRECOGNIZED DRUG - OTHER] IV SCH (10:55)
[2024-05-04] MEDS: MVI IV SCH (10:55)
[2024-05-04] MEDS: CLINIMIX IV SCH (10:55)
[2024-05-04 13:52] LABS: MAGNESIUM 1.6 mg/dL (2.0-2.9); PHOSPHORUS 4.7 mg/dL (2.6-4.7)
[2024-05-04] MEDS ORDERED: CONSULT PHARMACY - POTASSIUM & MAGNESIUM XX SCH (18:00)
[2024-05-05 00:11] VITALS: O2SAT 99
[2024-05-05 06:24] LABS: BASOPHILS % (AUTO) 0.5 % (0.2-1.0); EOSINOPHILS # (AUTO) 0.6 x10^3/uL (0.0-0.2); EOSINOPHILS % (AUTO) 7.4 % (0.9-2.9); HEMOGLOBIN 10.3 g/dL (13.5-18.0); LYMPHOCYTES # (AUTO) 1.3 X10^3/uL (1.3-2.9); LYMPHOCYTES % (AUTO) 15.6 % (21.0-51.0); MEAN CORPUSCULAR HEMOGLOBIN 34.5 pg (27.0-34.0); MEAN CORPUSCULAR HGB CONC 34.2 g/dL (33.0-35.0); MEAN CORPUSCULAR VOLUME 100.8 fL (80.0-100.0); MEAN PLATELET VOLUME 7.5 fL (7.4-11.0); MONOCYTES # (AUTO) 1.3 x10^3/uL (0.3-0.8); MONOCYTES % (AUTO) 15.8 % (0.0-13.0); NEUTROPHILS # (AUTO) 4.9 x10^3/uL (2.2-4.8); NEUTROPHILS % (AUTO) 60.7 % (42.0-75.0); PLATELET COUNT 289 X10^3/uL (150.0-450.0); RED BLOOD COUNT 2.98 X10^6/uL (4.7-6.0); RED CELL DISTRIBUTION WIDTH 13.4 % (11.6-16.5); WHITE BLOOD COUNT 8.1 X10^3/uL (3.6-10.0)
[2024-05-05 06:40] LABS: PREALBUMIN 13.2 mg/dL (18-35.7)
[2024-05-05 06:54] LABS: ALANINE AMINOTRANSFERASE 43 Units/L (12-78); ALBUMIN 2.5 g/dL (3.4-5.0); ALKALINE PHOSPHATASE 138 Units/L (46-116); ASPARTATE AMINO TRANSFERASE 34 Units/L (15-37); BLOOD UREA NITROGEN 16 mg/dL (7-18); CALCIUM 8.8 mg/dL (8.5-10.1); CARBON DIOXIDE 28.9 mmol/L (21-32); CHLORIDE 95 mmol/L (98-107); COR NA(FOR HYPERGLY) 133 mmol/L (136-145); CREATININE 0.71 mg/dL (0.70-1.30); GLUCOSE 127 mg/dL (65-99); POTASSIUM 3.2 mmol/L (3.5-5.1); SODIUM 132 mmol/L (136-145); TOTAL PROTEIN 6.2 g/dL (6.4-8.2); eGFR NON BLACK RACES > 60 (>60)
[2024-05-05] MEDS: CLINIMIX IV SCH (09:27)
[2024-05-05] MEDS: DRUG FILTER EXTENSION SET ONE (09:27)
[2024-05-05] MEDS: [UNRECOGNIZED DRUG - OTHER] IV SCH (09:27)
[2024-05-05] MEDS: MVI IV SCH (09:27)
[2024-05-05 13:08] VITALS: BP 102/67; PULSE 96; RESP 18; TEMP 97.8
== END 2024-05-05 13:05 | disposition home or self-care (01) | DRG 424 ==
LOC: ER 23:07 → MED/SURG 04-26 03:20
PROVIDERS: ADMIT Obstetrics & Gynecology Obstetrics; ATTEND Surgery
PROC: GASTERC (ICD-10-PCS; 2024-05-01 08:40)
DX: R97.8 Other abnormal tumor markers; E83.42 Hypomagnesemia; K25.9 Gastric ulcer, unspecified as acute or chronic, without hemorrhage or perforation; K66.0 Peritoneal adhesions (postprocedural) (postinfection); E87.6 Hypokalemia; K31.1 Adult hypertrophic pyloric stenosis; K86.1 Other chronic pancreatitis; E87.1 Hypo-osmolality and hyponatremia; E11.65 Type 2 diabetes mellitus with hyperglycemia; E86.0 Dehydration; K85.80 Other acute pancreatitis without necrosis or infection